=== PATIENT | female | born 1955 | race Caucasian/White ===

== ENCOUNTER 2016-11-27 08:34 | Inpatient (IN) | payer OTHER ==
[2016-11-27] MEDS ORDERED: METHYLPREDNISOLONE INJ 125 MG/2 ML SDV IV ONE (09:04)
[2016-11-27] MEDS ORDERED: IPRATROPIUM/ALBUTEROL 0.5-2.5 MG/3 ML AMPUL NEB ONE ×3 (09:04→09:05)
--- NOTE | 2016-11-27 09:07 | ER Document Report ---
ED General - General Chief Complaint: Breathing Difficulty Stated Complaint: DIFFICULTY BREATHING Time Seen by Provider: 11/27/16 08:54 Mode of Arrival: Ambulatory Information source: Patient Notes: 61-year-old female history of COPD on 3 L nasal cannula at baseline presents with complaints of shortness of breath intermittent productive cough. Patient denies any fevers or chills no symptoms have been ongoing for approximately 1 week. Patient admits to frontal sinus pressure and headache TRAVEL OUTSIDE OF THE [place] IN LAST 30 DAYS: No - HPI Onset: Last week Onset/Duration: Persistent, Worse Quality of pain: Achy Severity: Mild Pain Level: 1 Associated symptoms: Nonproductive cough, Productive cough, Headache, Shortness of breath Exacerbated by: Movement Relieved by: Denies Similar symptoms previously: Yes Recently seen / treated by doctor: Yes - Related Data Allergies/Adverse Reactions: No Known Allergies Allergy (Verified 11/27/16 08:41) Past Medical History - Social History Smoking Status: Current Every Day Smoker Cigarette use (# per day): Yes Chew tobacco use (# tins/day): No Smoking Education Provided: No Family History: Reviewed & Not Pertinent Patient has suicidal ideation: No Patient has homicidal ideation: No - Past Medical History Cardiac Medical History: Reports: Hx Congestive Heart Failure, Hx Hypertension Denies: Hx Coronary Artery Disease, Hx Heart Attack Pulmonary Medical History: Reports: Hx Asthma, Hx Bronchitis, Hx COPD, Hx Sleep Apnea Denies: Hx Pneumonia Neurological Medical History: Denies: Hx Cerebrovascular Accident, Hx Seizures Endocrine Medical History: Reports: Hx Diabetes Mellitus Type 2 Renal/ Medical History: Denies: Hx Peritoneal Dialysis GI Medical History: Denies: Hx Hepatitis, Hx Hiatal Hernia, Hx Ulcer Musculoskeltal Medical History: Reports Hx Arthritis - Osteoporosis Psychiatric Medical History: Denies: Hx Depression Infectious Medical History: Denies: Hx Hepatitis Past Surgical History: Reports: Hx Hysterectomy. Denies: Hx Mastectomy, Hx Open Heart Surgery, Hx Pacemaker - Immunizations Hx Diphtheria, Pertussis, Tetanus Vaccination: No Hx Pneumococcal Vaccination: 02/04/11 Review of Systems - Review of Systems Notes: REVIEW OF SYSTEMS: CONSTITUTIONAL : Denies fever, chills, or sweats. Denies recent illness. EENT: Denies eye, ear, throat, or mouth pain or symptoms. Denies nasal or sinus congestion or discharge. Denies throat, tongue, or mouth swelling or difficulty swallowing. CARDIOVASCULAR: Denies chest pain. Denies palpitations or racing or irregular heart beat. Denies ankle edema. RESPIRATORY: Admits to cough shortness of breath GASTROINTESTINAL: Denies abdominal pain or distention. Denies nausea, vomiting , or diarrhea. Denies blood in vomitus, stools, or per rectum. Denies black, tarry stools. Denies constipation. GENITOURINARY: Denies difficulty urinating, painful urination, burning, frequency, blood in urine, or discharge. FEMALE GENITOURINARY: Denies vaginal bleeding, heavy or abnormal periods, irregular periods. Denies vaginal discharge or odor. MUSCULOSKELETAL: Denies back or neck pain or stiffness. Denies joint pain or swelling. SKIN: Denies rash, lesions or sores. HEMATOLOGIC : Denies easy bruising or bleeding. LYMPHATIC: Denies swollen, enlarged glands. NEUROLOGICAL: Admits to headache PSYCHIATRIC: Denies anxiety or stress. Denies depression, suicidal ideation, or homicidal ideation. ALL OTHER SYSTEMS REVIEWED AND NEGATIVE. PHYSICAL EXAMINATION: GENERAL: Well-appearing, well-nourished and in moderate respiratory distress HEAD: Atraumatic, normocephalic. EYES: Pupils equal round and reactive to light, extraocular movements intact, conjunctiva are normal. ENT: Nares patent, oropharynx clear without exudates. Moist mucous membranes. NECK: Normal range of motion, supple without lymphadenopathy LUNGS: Coarse rhonchi on inspiration with faint expiratory wheezing all throughout HEART: Tachycardic ABDOMEN: Soft, nontender, nondistended abdomen. No guarding, no rebound. No masses appreciated. Female : deferred Musculoskeletal: Normal range of motion, no pitting or edema. No cyanosis. NEUROLOGICAL: Cranial nerves grossly intact. Normal speech, normal gait. Normal sensory, motor exams PSYCH: Normal mood, normal affect. SKIN: Warm, Dry, normal turgor, no rashes or lesions noted. Dictation was performed using [employer] voice recognition software Physical Exam - Vital signs Vitals: Temp Pulse Resp BP 98.0 F 88 24 H 136/83 H 11/27/16 08:44 11/27/16 08:44 11/27/16 08:44 11/27/16 08:44 Course - Re-evaluation Re-evalutation: 11/27/16 09:07 Patient was ordered 3 duo nebs Solu-Medrol x-ray lab work pending 11/27/16 11:01 Patient's wheezing has improved significantly, she will be taken off BiPAP and evaluated 11/27/16 11:45 pt ambulated sating 59% on 4 L , pt immediately brought back ot the room - Vital Signs Vital signs: Temp Pulse Resp BP Pulse Ox 98.0 F 88 20 136/83 H 11/27/16 08:44 11/27/16 08:44 11/27/16 10:10 11/27/16 08:44 - Laboratory Result Diagrams: 11/27/16 09:00 11/27/16 09:00 Laboratory results interpreted by me: 11/27/16 11/27/16 11/27/16 09:00 09:00 10:40 MCHC 31.5 L RDW 16.8 H Seg Neutrophils % 82.6 H Lymphocytes % 10.7 L Absolute Neutrophils 8.4 H Carbon Dioxide 34 H Ur Leukocyte Esterase MODERATE H Critical Care Note - Critical Care Note Total time excluding time spent on procedures (mins): 34 Comments: minutes of critical care time spent in direct contact evaluating and reevaluating the patient, treating symptoms, reviewing labs and studies and speaking with family and consultants excluding any procedures Discharge - Discharge Clinical Impression: Hypoxemia, Morbid obesity with BMI of 40.0-44.9, adult, COPD exacerbation, Acute on chronic diastolic heart failure Respiratory failure with hypoxia Qualifiers: Chronicity: acute Qualified Code(s): J96.01 - Acute respiratory failure with hypoxia Condition: Fair Disposition: ADMITTED INPATIENT Admitting Provider: Hospitalist Unit Admitted: [facility]
[2016-11-27 09:17] LABS: ABSOLUTE BASOPHILS # (AUTO) 0.1 10^3/uL (0.0-0.2); ABSOLUTE EOSINOPHILS # (AUTO) 0.1 10^3/uL (0.0-0.6); ABSOLUTE LYMPHOCYTES (AUTO) 1.1 10^3/uL (0.5-4.7); ABSOLUTE MONOCYTES (AUTO) 0.5 10^3/uL (0.1-1.4); ABSOLUTE NEUT (AUTO) 8.4 10^3/uL (1.7-8.2); BASOPHILS % (AUTO) 0.9 % (0-2); EOSINOPHILS % (AUTO) 1.2 % (0-6); HEMATOCRIT 39.5 % (36.0-47.0); HEMOGLOBIN 12.5 g/dL (12.0-15.5); LYMPHOCYTES % (AUTO) 10.7 % (13-45); MEAN CORPUSCULAR HEMOGLOBIN 28.2 pg (27.0-33.4); MEAN CORPUSCULAR HGB CONC 31.5 g/dL (32.0-36.0); MEAN CORPUSCULAR VOLUME 90 fl (80-97); MONOCYTES % (AUTO) 4.6 % (3-13); RED BLOOD COUNT 4.42 10^6/uL (3.72-5.28); RED CELL DISTRIBUTION WIDTH 16.8 % (11.5-14.0); SEGMENTED NEUTROPHILS % (AUTO) 82.6 % (42-78); WHITE BLOOD COUNT 10.1 10^3/uL (4.0-10.5)
[2016-11-27 09:33] LABS: ALANINE AMINOTRANSFERASE 34 U/L (9-52); ALBUMIN 4.5 g/dL (3.5-5.0); ALKALINE PHOSPHATASE 97 U/L (38-126); ANION GAP 11 (5-19); ASPARTATE AMINO TRANSFERASE 34 U/L (14-36); BILIRUBIN,DIRECT 0.3 mg/dL (0.0-0.4); BILIRUBIN,TOTAL 1.1 mg/dL (0.2-1.3); BLOOD UREA NITROGEN 20 mg/dL (7-20); CALCIUM 9.5 mg/dL (8.4-10.2); CARBON DIOXIDE 34 mmol/L (22-30); CHLORIDE 98 mmol/L (98-107); CREATINE KINASE 40 U/L (30-135); CREATININE RESULT 0.93 mg/dL (0.52-1.25); GLUCOSE 103 mg/dL (75-110); SODIUM 143.1 mmol/L (137-145); TOTAL PROTEIN 8.2 g/dL (6.3-8.2)
[2016-11-27 09:45] LABS: CREATINE KINASE MB 0.46 ng/mL (<4.55)
[2016-11-27 09:48] LABS: TROPONIN I < 0.012 ng/mL
--- NOTE | 2016-11-27 09:59 | RADIOLOGY REPORT (SQ) ---
EXAM DESCRIPTION: CHEST SINGLE VIEW COMPLETED DATE/TIME: 11/27/2016 9:34 am REASON FOR STUDY: sob COMPARISON: None. EXAM PARAMETERS: NUMBER OF VIEWS: One view. TECHNIQUE: Single frontal radiographic view of the chest acquired. RADIATION DOSE: NA LIMITATIONS: None. FINDINGS: LUNGS AND PLEURA: No opacities, masses or pneumothorax. No pleural effusion. MEDIASTINUM AND HILAR STRUCTURES: No masses. Contour normal. HEART AND VASCULAR STRUCTURES: Borderline cardiomegaly. No pulmonary vascular distention. BONES: No acute findings. HARDWARE: EKG leads overlie the chest. OTHER: No other significant finding. IMPRESSION: No acute cardiopulmonary disease. Borderline cardiomegaly. TECHNICAL DOCUMENTATION: JOB ID: [id number]
[2016-11-27 10:59] LABS: APPEARANCE,URINE SLIGHTLY-CLOUDY; BILIRUBIN,URINE NEGATIVE (NEGATIVE); GLUCOSE, URINE NEGATIVE (NEGATIVE); KETONES,URINE NEGATIVE (NEGATIVE); LEUKOCYTE ESTERASE,URINE MODERATE (NEGATIVE); NITRITE,URINE NEGATIVE (NEGATIVE); PROTEIN,URINE NEGATIVE (NEGATIVE); URINE SPECIFIC GRAVITY 1.004; UROBILINOGEN,URINE NEGATIVE mg/dL (<2.0)
[2016-11-27] MEDS ORDERED: ACETAMINOPHEN 325 MG TABLET PO ONE (11:00)
[2016-11-27] MEDS ORDERED: IPRATROPIUM/ALBUTEROL 0.5-2.5 MG/3 ML AMPUL NEB PRN (11:52)
[2016-11-27] MEDS ORDERED: ACETAMINOPHEN 325 MG TABLET PO PRN (11:52)
[2016-11-27] MEDS ORDERED: ONDANSETRON HCL INJ/PF 4 MG/2 ML SDV IV PRN (11:52)
[2016-11-27 12:09] LABS: VENOUS BLOOD BASE EXCESS 6.2 mmol/L; VENOUS BLOOD HCO3 34.9 mmol/L (20-32); VENOUS BLOOD PH 7.31 (7.30-7.42)
[2016-11-27 12:13] LABS: VENOUS BLOOD PCO2 70.8 mmHg (35-63)
--- NOTE | 2016-11-27 13:04 | PDOC H&P ---
History of Present Illness Admission Date/PCP: 11/27/16 12:08 Patient complains of: Increasing shortness of breath and dyspnea over the last one week History of Present Illness: 61-year-old female history of COPD on 3 L nasal cannula at baseline, diabetes mellitus type II, morbid obesity, essential hypertension and GERD; who presents with complaints of shortness of breath intermittent productive cough. Patient denies any fevers or chills no symptoms have been ongoing for approximately 1 week. Patient admits to frontal sinus pressure and headache. She states her shortness of breath has worsened over the last 3 days. She has a cough, mostly nonproductive in nature and sinus congestion. She denies any fevers or chills. Past Medical History Cardiac Medical History: Reports: Congestive Heart Failure, Hypertension Denies: Coronary Artery Disease, Myocardial Infarction Pulmonary Medical History: Reports: Asthma, Bronchitis, Chronic Obstructive Pulmonary Disease (COPD), Sleep Apnea Denies: Pneumonia EENT Medical History: Reports: Nose Neurological Medical History: Reports: None Denies: Seizures Endocrine Medical History: Reports: Diabetes Mellitus Type 2 Renal/ Medical History: Reports: None GI Medical History: Reports: Gastroesophageal Reflux Disease Denies: Hepatitis, Hiatal Hernia Musculoskeltal Medical History: Reports: Arthritis - Osteoporosis Skin Medical History: Reports: None Psychiatric Medical History: Reports: None Denies: Depression Traumatic Medical History: Reports: None Hematology: Denies: Anemia, Sickle Cell Disease Infectious Medical History: Reports: None Past Surgical History Past Surgical History: Reports: Hysterectomy Denies: Amputation, Mastectomy, Pacemaker Social History Information Source: Patient Lives with: Family Smoking Status: Former Smoker Pipes Per Day: 12 Number of Years Smokin Frequency of Alcohol Use: None Hx Recreational Drug Use: No Drugs: None Hx Prescription Drug Abuse: No - Advance Directive Resuscitation Status: Full Code Surrogate healthcare decision maker:: , Amilcar Duggan Family History Family History: COPD, DM, Hypertension Parental Family History Reviewed: Yes Children Family History Reviewed: Yes Sibling(s) Family History Reviewed.: Yes Medication/Allergy Home Medications: Aspirin [Aspirin 81 mg Chewable Tablet] 81 mg PO DAILY 04/17/11 Diltiazem HCl [Cardizem Cd 120 mg Capsule] 120 mg PO DAILY 04/17/11 Esomeprazole Mag Trihydrate [Nexium] 40 mg PO DAILY 04/17/11 Ibandronate Sodium [Boniva] 150 mg PO [id number] 04/17/11 Ramipril [Altace] 10 mg PO DAILY 04/17/11 Cetirizine HCl [Zyrtec 5 mg Tablet] 10 mg PO DAILY 07/05/14 Magnesium Oxide 400 mg PO BID 07/05/14 Metformin HCl [Glucophage] 500 mg PO BID 07/05/14 Montelukast Sodium 10 mg PO QHS 07/05/14 Carvedilol [Coreg 3.125 mg Tablet] 3.125 mg PO Q12 #60 tablet 07/15/14 Fluticasone/Salmeterol [Advair 500-50 Diskus 14 Dose/Diskus] 1 inh IH Q12 30 Days 07/15/14 Albuterol Sulfate [Proair HFA] 2 puff IH QID 09/01/15 Atorvastatin Calcium 10 mg PO QHS 09/01/15 Fluticasone Propionate [Flonase Allergy Relief] 1 spray NASL BID 09/01/15 Pramipexole Di-HCl [Mirapex 0.25 mg Tablet] 0.25 mg PO QHS 09/01/15 Tiotropium [place] [Spiriva Respimat] 2 puff IH QAM 09/01/15 Albuterol Sulfate [Ventolin 0.083% Neb 2.5 mg/3 mL Ampul] 2.5 mg NEB [id number] PRN #60 vial.neb 09/03/15 Furosemide [Lasix 20 mg Tablet] 20 mg PO DAILY tablet 09/03/15 Ipratropium [place] [Atrovent 0.02% Neb 0.5 mg/2.5 ml Ampul] 1 dose NEB Q6HP PRN #60 09/03/15 Calcium Carbonate/Vitamin D3 [Calcium 600-Vit D3 200 Tablet] 1 each PO BID 10/31 Levofloxacin [Levaquin 750 mg Tablet] 750 mg PO DAILY #5 tablet 11/06/15 Prednisone [Deltasone 20 mg Tablet] 60 mg PO BID #93 tablet 11/06/15 Allergies/Adverse Reactions: No Known Allergies Allergy (Verified 11/27/16 08:41) Review of Systems Constitutional: ABSENT: chills, fever(s), headache(s), weight gain, weight loss Eyes: ABSENT: visual disturbances Ears: ABSENT: hearing changes Nose, Mouth, and Throat: PRESENT: headache(s), sore throat Cardiovascular: ABSENT: chest pain, dyspnea on exertion, edema, orthropnea, palpitations Gastrointestinal: ABSENT: abdominal pain, constipation, diarrhea, hematemesis, hematochezia, nausea, vomiting Genitourinary: ABSENT: dysuria, hematuria Musculoskeletal: ABSENT: joint swelling Integumentary: ABSENT: rash, wounds Neurological: ABSENT: abnormal gait, abnormal speech, confusion, dizziness, focal weakness, syncope Psychiatric: PRESENT: as per HPI Endocrine: ABSENT: cold intolerance, heat intolerance, polydipsia, polyuria Hematologic/Lymphatic: PRESENT: as per HPI Physical Exam Vital Signs: Temp Pulse Resp BP Pulse Ox 98.0 F 88 20 136/83 H 11/27/16 08:44 11/27/16 08:44 11/27/16 10:10 11/27/16 08:44 General appearance: PRESENT: no acute distress, morbidly obese, well-developed, well-nourished Head exam: PRESENT: atraumatic, normocephalic Eye exam: PRESENT: conjunctiva pink, EOMI, PERRLA. ABSENT: scleral icterus Ear exam: PRESENT: normal external ear exam Mouth exam: PRESENT: moist, tongue midline Throat exam: PRESENT: post pharyngeal erythema Neck exam: ABSENT: carotid bruit, JVD, lymphadenopathy, thyromegaly Respiratory exam: PRESENT: decreased breath sounds - bilateral expiratory, symmetrical, unlabored, wheezes Cardiovascular exam: PRESENT: RRR. ABSENT: diastolic murmur, rubs, systolic murmur Pulses: PRESENT: normal dorsalis pedis pul Vascular exam: PRESENT: normal capillary refill GI/Abdominal exam: PRESENT: normal bowel sounds, soft. ABSENT: distended, guarding, mass, organolmegaly, rebound, tenderness Rectal exam: PRESENT: deferred Extremities exam: PRESENT: full ROM. ABSENT: calf tenderness, clubbing, pedal edema Neurological exam: PRESENT: alert, awake, oriented to person, oriented to place , oriented to time, oriented to situation, CN II-XII grossly intact. ABSENT: motor sensory deficit Psychiatric exam: PRESENT: appropriate affect, normal mood. ABSENT: homicidal ideation, suicidal ideation Skin exam: PRESENT: dry, intact, warm. ABSENT: cyanosis, rash Results Impressions: Chest X-Ray 11/27/16 08:54 IMPRESSION: No acute cardiopulmonary disease. Borderline cardiomegaly. Assessment & Plan - Diagnosis (1) Acute and chronic respiratory failure with hypoxia Is this a current diagnosis for this admission?: YesPlan: Patient given 3 nebulizer treatments, IV solumedrol and placed on BIPAP. Chest xray shows no pneumonia. She does have sinusitis with post nasal drainage causing acute bronchitis (2) COPD exacerbation Is this a current diagnosis for this admission?: Yes (3) Acute on chronic diastolic heart failure Is this a current diagnosis for this admission?: YesPlan: Continue home medications (4) Acute sinusitis Qualifiers: Sinusitis location: maxillary Recurrence: recurrent Qualified Code(s): J01.01 - Acute recurrent maxillary sinusitis Is this a current diagnosis for this admission?: YesPlan: Flonase, Claritin, levaquin empirically (5) Morbid obesity with BMI of 40.0-44.9, adult Is this a current diagnosis for this admission?: Yes - Time Time Spent: 50 to 70 Minutes Critical Time spent with patient: 25-34 minutes Medications reviewed and adjusted accordingly: Yes Anticipated discharge: Home with Homehealth
--- NOTE | 2016-11-27 13:32 | EKG REPORT ---
SEVERITY:- NORMAL ECG - SINUS RHYTHM : Confirmed by: Mello Herbert MD 27-Nov-2016 13:31:23
[2016-11-27] MEDS ORDERED: ENOXAPARIN SODIUM INJ 40 MG/0.4 ML DISP.SYRIN SUBCUT ONE (14:00)
[2016-11-27] MEDS: METHYLPREDNISOLONE INJ 125 MG/2 ML SDV IV SCH ×2 (14:41→21:57)
[2016-11-27] MEDS: LEVOFLOXACIN 750 MG/D5W RTU 750 MG/150 ML RTUPB IV SCH (14:41)
[2016-11-27] MEDS: IPRATROPIUM/ALBUTEROL 0.5-2.5 MG/3 ML AMPUL NEB SCH ×2 (14:42→19:47)
[2016-11-27 14:57] LABS: ARTERIAL BLOOD BASE EXCESS 2.3 mmol/L; ARTERIAL BLOOD O2 SATURATION 96.6 % (94-98)
[2016-11-27] MEDS: FLUTICASONE NASAL SPRAY 50 MCG/SPRY 120 SPRAY/16 GM NASL SCH (17:45)
[2016-11-27] MEDS: DOCUSATE SODIUM 100 MG CAPSULE PO SCH (17:45)
[2016-11-27] MEDS: MONTELUKAST SODIUM 10 MG TABLET PO SCH (21:59)
[2016-11-27] MEDS: FAMOTIDINE 20 MG TABLET PO SCH (22:00)
[2016-11-27] MEDS: FLUTICASONE/SALMETEROL DISKUS 500-50 MCG/DOSE IH SCH (22:00)
[2016-11-27 22:48] LABS: ARTERIAL BLOOD BASE EXCESS 3.4 mmol/L; ARTERIAL BLOOD O2 SATURATION 91.8 % (94-98)
[2016-11-28] MEDS: METHYLPREDNISOLONE INJ 125 MG/2 ML SDV IV SCH ×3 (05:19→23:16)
[2016-11-28 05:28] LABS: ABSOLUTE LYMPHOCYTES (AUTO) 0.5 10^3/uL (0.5-4.7); ABSOLUTE MONOCYTES (AUTO) 0.1 10^3/uL (0.1-1.4); ABSOLUTE NEUT (AUTO) 6.3 10^3/uL (1.7-8.2); HEMATOCRIT 34.4 % (36.0-47.0); HEMOGLOBIN 11.1 g/dL (12.0-15.5); HGB HCT DIFFERENCE -1.1; MEAN CORPUSCULAR HGB CONC 32.1 g/dL (32.0-36.0); MEAN CORPUSCULAR VOLUME 87 fl (80-97); RED BLOOD COUNT 3.95 10^6/uL (3.72-5.28); RED CELL DISTRIBUTION WIDTH 16.4 % (11.5-14.0); WHITE BLOOD COUNT 6.9 10^3/uL (4.0-10.5)
[2016-11-28 05:43] LABS: ANION GAP 9 (5-19); BLOOD UREA NITROGEN 20 mg/dL (7-20); CARBON DIOXIDE 30 mmol/L (22-30); CHLORIDE 102 mmol/L (98-107); CHOLESTEROL 137.29 mg/dL (0-200); CREATININE RESULT 0.89 mg/dL (0.52-1.25); Direct HDL 50 mg/dL (>40); GLUCOSE 184 mg/dL (75-110); MAGNESIUM 2.3 mg/dL (1.6-2.3); SODIUM 141.3 mmol/L (137-145); TRIGLYCERIDES 80 mg/dL (<150)
[2016-11-28 05:53] LABS: DIRECT LDL 69 mg/dL (<100)
[2016-11-28] MEDS ORDERED: ACETAMINOPHEN 325 MG TABLET PO PRN (07:58)
[2016-11-28] MEDS ORDERED: (PENDING PHARMACY ID) (Tiotropium Bromide [Spiriva Respimat] 2 PUFF) IH SCH (08:00)
[2016-11-28] MEDS ORDERED: ONDANSETRON HCL INJ/PF 4 MG/2 ML SDV IV PRN (08:01)
[2016-11-28] MEDS: IPRATROPIUM/ALBUTEROL 0.5-2.5 MG/3 ML AMPUL NEB SCH ×3 (08:32→20:13)
[2016-11-28] MEDS ORDERED: DEXTROSE 50%-WATER 25 GM/50 ML DISP.SYRIN IV PRN ×2 (08:44)
[2016-11-28] MEDS ORDERED: DEXTROSE 40% GEL 15 GM TUBE PO PRN ×2 (08:44)
[2016-11-28] MEDS ORDERED: GLUCAGON,HUMAN RECOMB 1 MG INJ IM PRN (08:44)
[2016-11-28] MEDS: ENOXAPARIN SODIUM INJ 40 MG/0.4 ML DISP.SYRIN SUBCUT SCH (09:13)
[2016-11-28] MEDS: ASPIRIN 81 MG TABLET, ENT COATED PO SCH (09:15)
[2016-11-28] MEDS: FAMOTIDINE 20 MG TABLET PO SCH ×2 (09:15→23:16)
[2016-11-28] MEDS: DOCUSATE SODIUM 100 MG CAPSULE PO SCH ×2 (09:15→17:08)
[2016-11-28] MEDS: METFORMIN HCL 500 MG TABLET PO SCH ×2 (09:15→23:39)
[2016-11-28] MEDS: MAGNESIUM OXIDE 400 MG TABLET PO SCH ×2 (09:16→23:35)
[2016-11-28] MEDS: FUROSEMIDE 20 MG TABLET PO SCH (09:16)
[2016-11-28] MEDS: DILTIAZEM HCL 120 MG CAP.SR.24H PO SCH (09:17)
[2016-11-28] MEDS: CARVEDILOL 3.125 MG TABLET PO SCH ×2 (09:17→23:29)
[2016-11-28] MEDS: FLUTICASONE NASAL SPRAY 50 MCG/SPRY 120 SPRAY/16 GM NASL SCH ×2 (09:18→17:09)
[2016-11-28] MEDS: FLUTICASONE/SALMETEROL DISKUS 500-50 MCG/DOSE IH SCH ×2 (09:18→23:29)
[2016-11-28] MEDS ORDERED: (PENDING PHARMACY ID) (Pantoprazole Sodium [Protonix] 20 MG) PO SCH (10:00)
[2016-11-28] MEDS ORDERED: CETIRIZINE 5 MG TABLET PO SCH (10:00)
[2016-11-28] MEDS ORDERED: RAMIPRIL 10 MG PO SCH (10:00)
[2016-11-28] MEDS: RAMIPRIL 10 MG CAPSULE PO SCH (11:01)
[2016-11-28] MEDS: TIOTROPIUM BROMIDE DPI 5 CAP/KIT (18 MCG/CAP) IH SCH (11:02)
[2016-11-28] MEDS: INSULIN LISPRO 100 UNIT/ML 3 ML VIAL SUBCUT PRN ×3 (12:15→23:16)
--- NOTE | 2016-11-28 12:26 | PDOC PROGRESS REPORT ---
Subjective Progress Note for:: 11/28/16 Subjective:: Patient is seen on morning rounds. She is resting comfortably in bed. She denies any chest pain or palpitations. She continues to be short of breath with exertion, but is no longer short of breath at rest. She has a nonproductive cough but denies dyspnea. She denies any nausea, vomiting or abdominal pain. She denies any athralgias or myalgias. Remaining review of systems are negative Physical Exam Vital Signs: Temp Pulse Resp BP Pulse Ox 97.7 F 90 20 120/82 94 11/28/16 08:10 11/28/16 08:32 11/28/16 08:32 11/28/16 08:10 11/28/16 08:32 Intake & Output 11/27/16 11/28/16 11/29/16 06:59 06:59 06:59 Intake Total 1067 Output Total 1200 Balance -133 Weight 113.2 kg 113.2 kg General appearance: PRESENT: no acute distress, well-developed, well-nourished Head exam: PRESENT: atraumatic, normocephalic Eye exam: PRESENT: conjunctiva pink, EOMI, PERRLA. ABSENT: scleral icterus Ear exam: PRESENT: normal external ear exam Mouth exam: PRESENT: dry mucosa Neck exam: ABSENT: carotid bruit, JVD, lymphadenopathy, thyromegaly Respiratory exam: PRESENT: clear to auscultation alysia. ABSENT: rales, rhonchi, wheezes Cardiovascular exam: PRESENT: RRR. ABSENT: diastolic murmur, rubs, systolic murmur Pulses: PRESENT: normal dorsalis pedis pul Vascular exam: PRESENT: normal capillary refill GI/Abdominal exam: PRESENT: normal bowel sounds, soft. ABSENT: distended, guarding, mass, organolmegaly, rebound, tenderness Rectal exam: PRESENT: deferred Extremities exam: PRESENT: full ROM. ABSENT: calf tenderness, clubbing, pedal edema Neurological exam: PRESENT: alert, awake, oriented to person, oriented to place , oriented to time, oriented to situation, CN II-XII grossly intact. ABSENT: motor sensory deficit Psychiatric exam: PRESENT: appropriate affect, normal mood. ABSENT: homicidal ideation, suicidal ideation Skin exam: PRESENT: dry, intact, warm. ABSENT: cyanosis, rash Results Laboratory Results: 11/28/16 04:36 11/28/16 04:36 11/27/16 11/27/16 11/28/16 14:30 22:35 04:36 WBC 6.9 RBC 3.95 Hgb 11.1 L Hct 34.4 L MCV 87 MCH 28.0 MCHC 32.1 RDW 16.4 H Plt Count 230 Seg Neutrophils % 92.0 H Lymphocytes % 7.0 L Monocytes % 1.0 L Eosinophils % 0.0 Basophils % 0.0 Absolute Neutrophils 6.3 Absolute Lymphocytes 0.5 Absolute Monocytes 0.1 Absolute Eosinophils 0.0 Absolute Basophils 0.0 Carbonic Acid 1.97 H 1.68 H HCO3/H2CO3 Ratio 15:1 17:1 ABG pH 7.29 L 7.35 ABG pCO2 65.5 H 55.7 H ABG pO2 99.7 66.0 L ABG HCO3 30.5 H 30.2 H ABG O2 Saturation 96.6 91.8 L ABG Base Excess 2.3 3.4 FiO2 50% 6L Sodium Potassium Chloride Carbon Dioxide Anion Gap BUN Creatinine Est GFR ( Amer) Est GFR (Non-Af Amer) Glucose Calcium Magnesium Triglycerides Cholesterol LDL Cholesterol Direct VLDL Cholesterol HDL Cholesterol 11/28/16 04:36 WBC RBC Hgb Hct MCV MCH MCHC RDW Plt Count Seg Neutrophils % Lymphocytes % Monocytes % Eosinophils % Basophils % Absolute Neutrophils Absolute Lymphocytes Absolute Monocytes Absolute Eosinophils Absolute Basophils Carbonic Acid HCO3/H2CO3 Ratio ABG pH ABG pCO2 ABG pO2 ABG HCO3 ABG O2 Saturation ABG Base Excess FiO2 Sodium 141.3 Potassium 5.0 Chloride 102 Carbon Dioxide 30 Anion Gap 9 BUN 20 Creatinine 0.89 Est GFR ( Amer) > 60 Est GFR (Non-Af Amer) > 60 Glucose 184 H Calcium 9.0 Magnesium 2.3 Triglycerides 80 Cholesterol 137.29 LDL Cholesterol Direct 69 VLDL Cholesterol 16.0 HDL Cholesterol 50 Impressions: Chest X-Ray 11/27/16 08:54 IMPRESSION: No acute cardiopulmonary disease. Borderline cardiomegaly. Assessment & Plan - Diagnosis (1) Acute and chronic respiratory failure with hypoxia Is this a current diagnosis for this admission?: YesPlan: Patient given 3 nebulizer treatments, IV solumedrol and placed on BIPAP. Chest xray shows no pneumonia. She does have sinusitis with post nasal drainage causing acute bronchitis (2) COPD exacerbation Is this a current diagnosis for this admission?: YesPlan: Continue steroids, antibiotics, and nebulizer treatments (3) Acute on chronic diastolic heart failure Is this a current diagnosis for this admission?: YesPlan: Continue home medications (4) Acute sinusitis Qualifiers: Sinusitis location: maxillary Recurrence: recurrent Qualified Code(s): J01.01 - Acute recurrent maxillary sinusitis Is this a current diagnosis for this admission?: YesPlan: Flonase, Claritin, levaquin empirically (5) Morbid obesity with BMI of 40.0-44.9, adult Is this a current diagnosis for this admission?: YesPlan: Counseled - Time Time Spent with patient: 25-34 minutes Critical Time spent with patient: 15-24 minutes Smoking Cessation Education: 3 to 10 minutes Medications reviewed and adjusted accordingly: Yes
[2016-11-28] MEDS: LEVOFLOXACIN 750 MG/D5W RTU 750 MG/150 ML RTUPB IV SCH (13:44)
[2016-11-28] MEDS: MONTELUKAST SODIUM 10 MG TABLET PO SCH ×2 (23:15→23:35)
[2016-11-28] MEDS: ATORVASTATIN CALCIUM 10 MG TABLET PO SCH (23:34)
[2016-11-28] MEDS: PRAMIPEXOLE DI-HCL 0.25 MG TABLET PO SCH (23:41)
[2016-11-29] MEDS: METHYLPREDNISOLONE INJ 125 MG/2 ML SDV IV SCH ×3 (05:21→21:01)
[2016-11-29] MEDS: LANSOPRAZOLE 15 MG TAB.RAP.DR PO SCH (05:21)
[2016-11-29] MEDS: IPRATROPIUM/ALBUTEROL 0.5-2.5 MG/3 ML AMPUL NEB SCH ×3 (08:39→20:28)
[2016-11-29] MEDS: FLUTICASONE NASAL SPRAY 50 MCG/SPRY 120 SPRAY/16 GM NASL SCH ×2 (08:50→17:23)
[2016-11-29] MEDS: TIOTROPIUM BROMIDE DPI 5 CAP/KIT (18 MCG/CAP) IH SCH (08:50)
[2016-11-29] MEDS: RAMIPRIL 10 MG CAPSULE PO SCH (08:51)
[2016-11-29] MEDS: DILTIAZEM HCL 120 MG CAP.SR.24H PO SCH (08:52)
[2016-11-29] MEDS: FLUTICASONE/SALMETEROL DISKUS 500-50 MCG/DOSE IH SCH ×2 (08:52→21:02)
[2016-11-29] MEDS: ASPIRIN 81 MG TABLET, ENT COATED PO SCH (08:53)
[2016-11-29] MEDS: METFORMIN HCL 500 MG TABLET PO SCH ×2 (08:53→21:01)
[2016-11-29] MEDS: FAMOTIDINE 20 MG TABLET PO SCH ×2 (08:53→21:01)
[2016-11-29] MEDS: FUROSEMIDE 20 MG TABLET PO SCH (08:53)
[2016-11-29] MEDS: DOCUSATE SODIUM 100 MG CAPSULE PO SCH ×2 (08:54→17:23)
[2016-11-29] MEDS: CETIRIZINE 10 MG TABLET PO SCH (08:54)
[2016-11-29] MEDS: CARVEDILOL 3.125 MG TABLET PO SCH ×2 (08:54→21:01)
[2016-11-29] MEDS: ENOXAPARIN SODIUM INJ 40 MG/0.4 ML DISP.SYRIN SUBCUT SCH (08:55)
[2016-11-29] MEDS: MAGNESIUM OXIDE 400 MG TABLET PO SCH ×2 (08:55→21:01)
[2016-11-29] MEDS: INSULIN LISPRO 100 UNIT/ML 3 ML VIAL SUBCUT PRN ×4 (08:56→22:06)
[2016-11-29] MEDS: LEVOFLOXACIN 750 MG/D5W RTU 750 MG/150 ML RTUPB IV SCH (12:51)
[2016-11-29] MEDS: PRAMIPEXOLE DI-HCL 0.25 MG TABLET PO SCH (21:01)
[2016-11-29] MEDS: ATORVASTATIN CALCIUM 10 MG TABLET PO SCH (21:02)
[2016-11-29] MEDS: MONTELUKAST SODIUM 10 MG TABLET PO SCH (21:02)
[2016-11-30 05:09] LABS: ANION GAP 8 (5-19); BLOOD UREA NITROGEN 35 mg/dL (7-20); CALCIUM 8.7 mg/dL (8.4-10.2); CARBON DIOXIDE 32 mmol/L (22-30); CHLORIDE 101 mmol/L (98-107); CREATININE RESULT 0.97 mg/dL (0.52-1.25); GLUCOSE 177 mg/dL (75-110); POTASSIUM 4.7 mmol/L (3.6-5.0); SODIUM 141.1 mmol/L (137-145)
[2016-11-30] MEDS: LANSOPRAZOLE 15 MG TAB.RAP.DR PO SCH (05:09)
[2016-11-30 05:36] LABS: HEMATOCRIT 35.5 % (36.0-47.0); HGB HCT DIFFERENCE -2.5; MEAN CORPUSCULAR HEMOGLOBIN 27.5 pg (27.0-33.4); MEAN CORPUSCULAR HGB CONC 30.9 g/dL (32.0-36.0); MEAN CORPUSCULAR VOLUME 89 fl (80-97); RED BLOOD COUNT 3.99 10^6/uL (3.72-5.28); RED CELL DISTRIBUTION WIDTH 16.9 % (11.5-14.0); WHITE BLOOD COUNT 9.8 10^3/uL (4.0-10.5)
[2016-11-30 05:51] LABS: BASOPHILS % (MANUAL) 0 % (0-2); EOSINOPHILS % (MANUAL) 0 % (0-6); LYMPHOCYTES % (MANUAL) 1 % (13-45); TOTAL CELLS COUNTED 100
[2016-11-30 05:53] LABS: ANISOCYTOSIS 1+; HYPOCHROMASIA SLIGHT; OVALOCYTES SLIGHT; POIKILOCYTOSIS SLIGHT; POLYCHROMASIA SLIGHT; SCHISTOCYTES SLIGHT; TOXIC GRANULATION SLIGHT
[2016-11-30] MEDS: IPRATROPIUM/ALBUTEROL 0.5-2.5 MG/3 ML AMPUL NEB SCH ×3 (08:29→19:35)
[2016-11-30] MEDS: INSULIN LISPRO 100 UNIT/ML 3 ML VIAL SUBCUT PRN ×4 (08:39→21:22)
[2016-11-30] MEDS: ENOXAPARIN SODIUM INJ 40 MG/0.4 ML DISP.SYRIN SUBCUT SCH (08:39)
[2016-11-30] MEDS: FLUTICASONE NASAL SPRAY 50 MCG/SPRY 120 SPRAY/16 GM NASL SCH ×2 (08:40→17:18)
[2016-11-30] MEDS: TIOTROPIUM BROMIDE DPI 5 CAP/KIT (18 MCG/CAP) IH SCH (08:40)
[2016-11-30] MEDS: FLUTICASONE/SALMETEROL DISKUS 500-50 MCG/DOSE IH SCH ×2 (08:43→21:23)
[2016-11-30] MEDS: METHYLPREDNISOLONE INJ 125 MG/2 ML SDV IV SCH (08:43)
[2016-11-30] MEDS: DOCUSATE SODIUM 100 MG CAPSULE PO SCH ×2 (08:44→17:18)
[2016-11-30] MEDS: METFORMIN HCL 500 MG TABLET PO SCH ×2 (08:44→21:12)
[2016-11-30] MEDS: MAGNESIUM OXIDE 400 MG TABLET PO SCH ×2 (08:44→21:12)
[2016-11-30] MEDS: CARVEDILOL 3.125 MG TABLET PO SCH ×2 (08:45→21:11)
[2016-11-30] MEDS: DILTIAZEM HCL 120 MG CAP.SR.24H PO SCH (08:45)
[2016-11-30] MEDS: ASPIRIN 81 MG TABLET, ENT COATED PO SCH (08:45)
[2016-11-30] MEDS: FAMOTIDINE 20 MG TABLET PO SCH ×2 (08:45→21:12)
[2016-11-30] MEDS: CETIRIZINE 10 MG TABLET PO SCH (08:45)
[2016-11-30] MEDS: RAMIPRIL 10 MG CAPSULE PO SCH (08:46)
[2016-11-30] MEDS: FUROSEMIDE 20 MG TABLET PO SCH (08:46)
[2016-11-30] MEDS: PREDNISONE 20 MG TABLET PO SCH (09:31)
--- NOTE | 2016-11-30 10:31 | PDOC PROGRESS REPORT ---
Subjective Progress Note for:: 11/29/16 Subjective:: Patient is seen on morning rounds. She is resting comfortably in bed. She denies any chest pain or palpitations. She continues to be short of breath with exertion, but is no longer short of breath at rest. She has a nonproductive cough but denies dyspnea. She denies any nausea, vomiting or abdominal pain. She denies any athralgias or myalgias. Remaining review of systems are negative Physical Exam Vital Signs: Temp Pulse Resp BP Pulse Ox 98.0 F 90 18 124/72 97 11/29/16 07:07 11/29/16 08:39 11/29/16 08:39 11/29/16 07:07 11/29/16 08:39 Intake & Output 11/28/16 11/29/16 11/30/16 06:59 06:59 06:59 Intake Total 1067 1443 Output Total 1200 1600 Balance -133 -157 Weight 113.2 kg 113.2 kg General appearance: PRESENT: no acute distress, morbidly obese, well-developed, well-nourished Head exam: PRESENT: atraumatic, normocephalic Eye exam: PRESENT: conjunctiva pink, EOMI, PERRLA. ABSENT: scleral icterus Ear exam: PRESENT: normal external ear exam Mouth exam: PRESENT: moist, tongue midline Throat exam: PRESENT: post pharyngeal erythema Neck exam: ABSENT: carotid bruit, JVD, lymphadenopathy, thyromegaly Respiratory exam: PRESENT: decreased breath sounds - bilaterally, rhonchi, symmetrical, unlabored Cardiovascular exam: PRESENT: RRR. ABSENT: diastolic murmur, rubs, systolic murmur Pulses: PRESENT: normal dorsalis pedis pul Vascular exam: PRESENT: normal capillary refill GI/Abdominal exam: PRESENT: normal bowel sounds, soft. ABSENT: distended, guarding, mass, organolmegaly, rebound, tenderness Rectal exam: PRESENT: deferred Extremities exam: PRESENT: full ROM. ABSENT: calf tenderness, clubbing, pedal edema Musculoskeletal exam: PRESENT: ambulatory Neurological exam: PRESENT: alert, awake, oriented to person, oriented to place , oriented to time, oriented to situation, CN II-XII grossly intact Psychiatric exam: PRESENT: appropriate affect, normal mood. ABSENT: homicidal ideation, suicidal ideation Skin exam: PRESENT: dry, intact, warm. ABSENT: cyanosis, rash Results Laboratory Results: 11/28/16 04:36 11/28/16 04:36 Impressions: Chest X-Ray 11/27/16 08:54 IMPRESSION: No acute cardiopulmonary disease. Borderline cardiomegaly. Assessment & Plan - Diagnosis (1) Acute and chronic respiratory failure with hypoxia Is this a current diagnosis for this admission?: YesPlan: Patient given 3 nebulizer treatments, IV solumedrol and placed on BIPAP. Chest xray shows no pneumonia. She does have sinusitis with post nasal drainage causing acute bronchitis (2) COPD exacerbation Is this a current diagnosis for this admission?: YesPlan: Continue steroids, antibiotics, and nebulizer treatments (3) Acute on chronic diastolic heart failure Is this a current diagnosis for this admission?: YesPlan: Continue home medications (4) Acute sinusitis Qualifiers: Sinusitis location: maxillary Recurrence: recurrent Qualified Code(s): J01.01 - Acute recurrent maxillary sinusitis Is this a current diagnosis for this admission?: YesPlan: Flonase, Claritin, levaquin empirically (5) Morbid obesity with BMI of 40.0-44.9, adult Is this a current diagnosis for this admission?: YesPlan: Counseled - Time Time Spent with patient: 25-34 minutes Critical Time spent with patient: 25-34 minutes Medications reviewed and adjusted accordingly: Yes Anticipated discharge: Home with Homehealth
[2016-11-30] MEDS ORDERED: LEVOFLOXACIN 750 MG TABLET PO SCH (14:00)
[2016-11-30] MEDS: ATORVASTATIN CALCIUM 10 MG TABLET PO SCH (21:11)
[2016-11-30] MEDS: MONTELUKAST SODIUM 10 MG TABLET PO SCH (21:12)
[2016-11-30] MEDS: PRAMIPEXOLE DI-HCL 0.25 MG TABLET PO SCH (21:21)
[2016-12-01] MEDS: LANSOPRAZOLE 15 MG TAB.RAP.DR PO SCH (06:33)
[2016-12-01] MEDS: IPRATROPIUM/ALBUTEROL 0.5-2.5 MG/3 ML AMPUL NEB SCH (08:10)
[2016-12-01] MEDS: FLUTICASONE NASAL SPRAY 50 MCG/SPRY 120 SPRAY/16 GM NASL SCH (08:54)
[2016-12-01] MEDS: FLUTICASONE/SALMETEROL DISKUS 500-50 MCG/DOSE IH SCH (08:54)
[2016-12-01] MEDS: TIOTROPIUM BROMIDE DPI 5 CAP/KIT (18 MCG/CAP) IH SCH (08:55)
[2016-12-01] MEDS: DOCUSATE SODIUM 100 MG CAPSULE PO SCH (08:56)
[2016-12-01] MEDS: RAMIPRIL 10 MG CAPSULE PO SCH (08:56)
[2016-12-01] MEDS: PREDNISONE 20 MG TABLET PO SCH (08:57)
[2016-12-01] MEDS: ASPIRIN 81 MG TABLET, ENT COATED PO SCH (08:57)
[2016-12-01] MEDS: METFORMIN HCL 500 MG TABLET PO SCH (08:58)
[2016-12-01] MEDS: FAMOTIDINE 20 MG TABLET PO SCH (08:58)
[2016-12-01] MEDS: CETIRIZINE 10 MG TABLET PO SCH (08:58)
[2016-12-01] MEDS: MAGNESIUM OXIDE 400 MG TABLET PO SCH (08:58)
[2016-12-01] MEDS: FUROSEMIDE 20 MG TABLET PO SCH (08:58)
[2016-12-01] MEDS: DILTIAZEM HCL 120 MG CAP.SR.24H PO SCH (08:59)
[2016-12-01] MEDS: CARVEDILOL 3.125 MG TABLET PO SCH (08:59)
[2016-12-01] MEDS: ENOXAPARIN SODIUM INJ 40 MG/0.4 ML DISP.SYRIN SUBCUT SCH (08:59)
[2016-12-01 09:20] VITALS: BP 119/68
--- NOTE | 2016-12-01 11:41 | PDOC DISCHARGE SUMMARY ---
General - Admit/Disc Date/PCP Admission Date/Primary Care Provider: 11/27/16 11:59 Discharge Date: 12/01/16 - Discharge Diagnosis (1) Acute and chronic respiratory failure with hypoxia Is this a current diagnosis for this admission?: YesSummary: She has improved to her baseline. She is on oxygen at 3l/min via n/c (2) COPD exacerbation Is this a current diagnosis for this admission?: Yes (3) Acute on chronic diastolic heart failure Is this a current diagnosis for this admission?: YesSummary: Resolved, continue current medications. Low sodium diet and weigh daily (4) Acute sinusitis Is this a current diagnosis for this admission?: YesSummary: Complete antibiotic therapy (5) Morbid obesity with BMI of 40.0-44.9, adult Is this a current diagnosis for this admission?: Yes (6) UTI (urinary tract infection) Is this a current diagnosis for this admission?: YesSummary: Complete course of antibiotic therapy - Additional Information Resuscitation Status: Full Code Discharge Diet: Cardiac, Diabetic Discharge Activity: Activity As Tolerated, Balance Activity w/Rest Home Medications: Diltiazem HCl [Cardizem Cd 120 mg Capsule] 120 mg PO DAILY 04/17/11 Ramipril [Altace] 10 mg PO DAILY 04/17/11 Cetirizine HCl [Zyrtec 5 mg Tablet] 5 mg PO Q12 07/05/14 Magnesium Oxide 400 mg PO Q12 07/05/14 Metformin HCl [Glucophage] 500 mg PO Q12 07/05/14 Montelukast Sodium 10 mg PO QHS 07/05/14 Carvedilol [Coreg 3.125 mg Tablet] 3.125 mg PO Q12 #60 tablet 07/15/14 Fluticasone/Salmeterol [Advair 500-50 Diskus 14 Dose/Diskus] 1 inh IH Q12 30 Days 07/15/14 Albuterol Sulfate [Proair HFA] 2 puff IH QID 09/01/15 Atorvastatin Calcium 10 mg PO QHS 09/01/15 Fluticasone Propionate [Flonase Allergy Relief] 1 spray NASL BID 09/01/15 Pramipexole Di-HCl [Mirapex 0.25 mg Tablet] 0.25 mg PO QHS 09/01/15 Tiotropium [place] [Spiriva Respimat] 2 puff IH QAM 09/01/15 Albuterol Sulfate [Ventolin 0.083% Neb 2.5 mg/3 mL Ampul] 2.5 mg NEB RTQ4HP PRN #60 vial.neb 09/03/15 Furosemide [Lasix 20 mg Tablet] 20 mg PO DAILY tablet 09/03/15 Ipratropium [place] [Atrovent 0.02% Neb 0.5 mg/2.5 ml Ampul] 1 dose NEB Q6HP PRN #60 09/03/15 Calcium Carbonate/Vitamin D3 [Calcium 600-Vit D3 200 Tablet] 1 each PO DAILY 10/11 Aspirin [Aspirin EC] 81 mg PO DAILY 11/27/16 Meloxicam [Mobic 7.5 mg Tablet] 7.5 mg PO DAILY 11/27/16 Pantoprazole Sodium [Protonix] 20 mg PO DAILY 11/27/16 Acetaminophen [Tylenol 325 mg Tablet] 650 mg PO Q4HP PRN tablet 12/01/16 Levofloxacin [Levaquin 750 mg Tablet] 750 mg PO DAILY@1400 #5 tablet 12/01/16 Prednisone [Deltasone 20 mg Tablet] 20 mg PO ASDIR PRN #12 tablet 12/01/16 Walker [Folding Walker] 1 each MC ASDIR PRN #1 each 12/01/16 History of Present Illness Patient complains of: Shortness of breath and dyspnea History of Present Illness: 61-year-old female history of COPD on 3 L nasal cannula at baseline, diabetes mellitus type II, morbid obesity, essential hypertension and GERD; who presents with complaints of shortness of breath intermittent productive cough. Patient denies any fevers or chills no symptoms have been ongoing for approximately 1 week. Patient admits to frontal sinus pressure and headache. She states her shortness of breath has worsened over the last 3 days. She has a cough, mostly nonproductive in nature and sinus congestion. She denies any fevers or chills. Hospital Course Hospital Course: Patient was admitted to [facility] on telemetry. She was initially on BIPAP therapy. This was weaned to nasal cannula during the day and BIPAP at HS. She was started on IV broad spectrum antibiotics and steroids pending culture results. She was placed on around the clock nebulizer treatments. She began to improve with decreased wheezing and congestion . She was able to be out of bed without significant drop in oxygen saturation. Today she feels much improved. She is tolerating oral antibiotics and steroids Physical Exam Vital Signs: Temp Pulse Resp BP Pulse Ox 98.3 F 70 14 119/68 96 12/01/16 09:18 12/01/16 09:18 12/01/16 09:18 12/01/16 09:18 12/01/16 09:18 Intake & Output 11/30/16 12/01/16 12/02/16 06:59 06:59 06:59 Intake Total 2863 2156 Output Total 2560 2800 Balance 303 -644 Weight 113.2 kg 113.1 kg General appearance: PRESENT: no acute distress, morbidly obese, well-developed, well-nourished Head exam: PRESENT: atraumatic, normocephalic Eye exam: PRESENT: conjunctiva pink, EOMI, PERRLA. ABSENT: scleral icterus Ear exam: PRESENT: normal external ear exam Mouth exam: PRESENT: moist, tongue midline Throat exam: PRESENT: post pharyngeal erythema Neck exam: ABSENT: carotid bruit, JVD, lymphadenopathy, thyromegaly Respiratory exam: PRESENT: clear to auscultation alysia, decreased breath sounds, symmetrical, unlabored Cardiovascular exam: PRESENT: RRR. ABSENT: diastolic murmur, rubs, systolic murmur Pulses: PRESENT: normal dorsalis pedis pul Vascular exam: PRESENT: normal capillary refill GI/Abdominal exam: PRESENT: normal bowel sounds, soft. ABSENT: distended, guarding, mass, organolmegaly, rebound, tenderness Rectal exam: PRESENT: deferred Extremities exam: PRESENT: full ROM. ABSENT: calf tenderness, clubbing, pedal edema Neurological exam: PRESENT: alert, awake, oriented to person, oriented to place , oriented to time, oriented to situation, CN II-XII grossly intact. ABSENT: motor sensory deficit Psychiatric exam: PRESENT: appropriate affect, normal mood. ABSENT: homicidal ideation, suicidal ideation Skin exam: PRESENT: dry, intact, warm. ABSENT: cyanosis, rash Results Laboratory Results: 11/30/16 04:14 11/30/16 04:14 Impressions: Chest X-Ray 11/27/16 08:54 IMPRESSION: No acute cardiopulmonary disease. Borderline cardiomegaly. Qualifiers PATEINT BEING DISCHARGED WITH ANY OF THE FOLLOWING DIAGNOSIS?: No Plan Discharge Plan: Home with family Time Spent: Less than 30 Minutes
== END 2016-12-01 10:40 | disposition home or self-care (01) | DRG 190 ==
LOC: ER 08:34 → EH 11:59 → UNDOADMIN 12:08 → 3W 15:16
PROVIDERS: ADMIT Family Medicine; ATTEND Family Medicine
PROC: 5A09457 Assistance with Respiratory Ventilation, 24-96 Consecutive Hours, Continuous Positive Airway Pressure (ICD-10-PCS; principal; 2016-11-27)
DX: J44.1 Chronic obstructive pulmonary disease with (acute) exacerbation (principal); J96.21 Acute and chronic respiratory failure with hypoxia; I50.33 Acute on chronic diastolic (congestive) heart failure; Z68.41 Body mass index [BMI] 40.0-44.9, adult; J20.9 Acute bronchitis, unspecified; J44.0 Chronic obstructive pulmonary disease with (acute) lower respiratory infection; I11.0 Hypertensive heart disease with heart failure; J01.01 Acute recurrent maxillary sinusitis; E66.01 Morbid (severe) obesity due to excess calories; E11.9 Type 2 diabetes mellitus without complications; K21.9 Gastro-esophageal reflux disease without esophagitis; M81.0 Age-related osteoporosis without current pathological fracture; M19.90 Unspecified osteoarthritis, unspecified site; Z90.710 Acquired absence of both cervix and uterus; Z99.81 Dependence on supplemental oxygen; Z87.891 Personal history of nicotine dependence; Z79.52 Long term (current) use of systemic steroids; Z82.49 Family history of ischemic heart disease and other diseases of the circulatory system; Z79.51 Long term (current) use of inhaled steroids; Z82.5 Family history of asthma and other chronic lower respiratory diseases; Z83.3 Family history of diabetes mellitus; Z79.899 Other long term (current) drug therapy
CPT/HCPCS: 36415; 36600; 71010; 80048; 80053; 80061; 81001; 82550; 82553; 82803; 82962; 83605; 83735; 83880; 84484; 85025; 85610; 87040; 87070; 87077; 87086; 87088; 87186; 87205; 93005; 93010; 94640; 94660; 94667; 94799; 96374; 99291; J1650; J1815; J1956; J2930; J3490; J7512; J7620

== ENCOUNTER 2016-12-28 08:11 | Inpatient (IN) | payer OTHER ==
[2016-12-28] MEDS ORDERED: METHYLPREDNISOLONE INJ 125 MG/2 ML SDV IV ONE (08:24)
[2016-12-28] MEDS ORDERED: IPRATROPIUM/ALBUTEROL 0.5-2.5 MG/3 ML AMPUL NEB ONE (08:24)
--- NOTE | 2016-12-28 08:26 | ER Document Report ---
ED Respiratory Problem - General Chief Complaint: Shortness Of Breath Stated Complaint: DIFFICULTY BREATHING Time Seen by Provider: 12/28/16 08:16 Notes: The patient is a 61-year-old female, past medical history COPD (on home 4L O2), CHF, hypertension, presents from home with increasing shortness of breath over the past 4 days. She noticed her oxygen sat at home was in the 50's this morning on her home 4L oxygen. She is also feeling wheezy and noticed some leg swelling bilaterally. Patient is also noticing a dull upper chest achiness. She denies nausea, vomiting, cough, fevers, back pain, calf pain, urinary symptoms or rash. TRAVEL OUTSIDE OF THE [place] IN LAST 30 DAYS: No - Related Data Allergies/Adverse Reactions: No Known Allergies Allergy (Verified 11/27/16 08:41) Past Medical History - General Information source: Patient - Social History Smoking Status: Former Smoker Family History: COPD, DM, Hypertension - Past Medical History Cardiac Medical History: Reports: Hx Congestive Heart Failure, Hx Hypertension Denies: Hx Coronary Artery Disease, Hx Heart Attack Pulmonary Medical History: Reports: Hx Asthma, Hx Bronchitis, Hx COPD, Hx Sleep Apnea Denies: Hx Pneumonia Neurological Medical History: Denies: Hx Cerebrovascular Accident, Hx Seizures Endocrine Medical History: Reports: Hx Diabetes Mellitus Type 2 Renal/ Medical History: Denies: Hx Peritoneal Dialysis GI Medical History: Reports: Hx Gastroesophageal Reflux Disease. Denies: Hx Hepatitis, Hx Hiatal Hernia, Hx Ulcer Musculoskeltal Medical History: Reports Hx Arthritis - Osteoporosis Psychiatric Medical History: Denies: Hx Depression Infectious Medical History: Denies: Hx Hepatitis Past Surgical History: Reports: Hx Hysterectomy. Denies: Hx Mastectomy, Hx Open Heart Surgery, Hx Pacemaker - Immunizations Hx Diphtheria, Pertussis, Tetanus Vaccination: No Hx Pneumococcal Vaccination: 02/04/11 Review of Systems - Review of Systems Notes: REVIEW OF SYSTEMS: CONSTITUTIONAL: -fevers, -chills EENT: -eye pain, -difficulty swallowing, -nasal congestion CARDIOVASCULAR: +chest pain, -syncope. RESPIRATORY: +cough, +SOB GASTROINTESTINAL: -abdominal pain, - nausea, -vomiting, -diarrhea GENITOURINARY: -dysuria, -hematuria MUSCULOSKELETAL: -back pain, -neck pain SKIN: -rash or skin lesions. HEMATOLOGIC: -easy bruising or bleeding. LYMPHATIC: -swollen, enlarged glands. NEUROLOGICAL: -altered mental status or loss of consciousness, -headache, - neurologic symptoms PSYCHIATRIC: -anxiety, -depression. ALL OTHER SYSTEMS REVIEWED AND NEGATIVE. Physical Exam - Vital signs Vitals: Temp Pulse Resp BP Pulse Ox 98.7 F 105 H 18 132/83 H 61 L 12/28/16 08:13 12/28/16 08:13 12/28/16 08:13 12/28/16 08:13 12/28/16 08:13 - Notes Notes: PHYSICAL EXAMINATION: GENERAL: Well-appearing, well-nourished and in no acute distress. HEAD: Atraumatic, normocephalic. EYES: Pupils equal round and reactive to light, extraocular movements intact, sclera anicteric, conjunctiva are normal. ENT: nares patent, oropharynx clear without exudates. Moist mucous membranes. NECK: Normal range of motion, supple without lymphadenopathy LUNGS: Mild respiratory distress. Diffuse wheezes. HEART: Tachycardia. ABDOMEN: Soft, nontender, normoactive bowel sounds. No guarding, no rebound. No masses appreciated. EXTREMITIES: Normal range of motion, n1+ pitting edema up to knees in bilateral lower extremities. No cyanosis. NEUROLOGICAL: Cranial nerves grossly intact. Normal speech, normal gait. Normal sensory and motor exams. PSYCH: Normal mood, normal affect. SKIN: Warm, Dry, normal turgor, no rashes or lesions noted. Course - Re-evaluation Re-evalutation: Patient seen immediately on arrival due to oxygen saturation of 54% on her usual 3 L nasal cannula. Patient placed on 5 L nasal cannula and provided 3 duonebs with improvement of her oxygenation to 88%. BiPAP is at bedside as needed, but patient says that she feels better and her oxygenation improved. After steroids and DuoNeb's, patient's wheezing has improved, but is still present. Two more albuterols ordered. CTA ordered due to tachycardia, tachypnea and hypoxia with recent hospitalization, but this did not show any pulmonary embolisms. 12/28/16 11:02 Patient ambulated with her 4L home O2 and her oxygenation decreased down to 18% with a good pulse ox pleth. She became tachypneic and cyanotic. Road test quickly stopped, oxygen was increased to 8L and she was wheeled back to her room. When placed back in bed, her O2 improved back to 88% on her 4L and her color turned back to pink. Pt requires inpatient admission for hypoxic acute on chronic respiratory failure. With no PE, pneumonia or pulmonary edema on x-ray or CTA, suspect that her symptoms are related to a COPD or interstitial lung disease exacerbation. Her PMD is Dr. Cote. 12/28/16 11:[address] Patton and he will admit patient to IMCU as Inpatient for further evaluation. - Vital Signs Vital signs: Temp Pulse Resp BP Pulse Ox 98.7 F 105 H 19 127/75 H 77 L 12/28/16 08:13 12/28/16 08:13 12/28/16 11:07 12/28/16 11:07 12/28/16 11:07 - Laboratory Result Diagrams: 12/28/16 08:30 12/28/16 08:30 Laboratory results interpreted by me: 12/28/16 12/28/16 12/28/16 08:30 08:30 08:30 Hgb 11.3 L MCHC 31.4 L RDW 17.3 H Carbonic Acid ABG pCO2 ABG pO2 ABG HCO3 ABG Total CO2 ABG O2 Saturation Carbon Dioxide 32 H Est GFR (Non-Af Amer) 56 L Glucose 122 H Creatine Kinase 21 L NT-Pro-B Natriuret Pep 1090 H 12/28/16 08:58 Hgb MCHC RDW Carbonic Acid 1.47 H ABG pCO2 49.0 H ABG pO2 58.1 L ABG HCO3 29.0 H ABG Total CO2 30.5 H ABG O2 Saturation 89.7 L Carbon Dioxide Est GFR (Non-Af Amer) Glucose Creatine Kinase NT-Pro-B Natriuret Pep - Diagnostic Test Radiology reviewed: Image reviewed, Reports reviewed Radiology results interpreted by me: CXR: Chronic interstitial changes, NAD CTA: No PE. - EKG Interpretation by Me EKG shows normal: Sinus rhythm, [place], Intervals, QRS Complexes, ST-T Waves Rate: Normal When compared to previous EKG there are: No significant change Critical Care Note - Critical Care Note Total time excluding time spent on procedures (mins): 55 - frequent reevaluations, life-threatening disease Discharge - Discharge Clinical Impression: Acute and chronic respiratory failure with hypoxia, COPD exacerbation Condition: Fair Disposition: ADMITTED INPATIENT Admitting Provider: Hospitalist - [facility] Admitted: IMCU Referrals: GEO COTE MD [Primary Care Provider] - Follow up as needed
[2016-12-28 08:55] LABS: ABSOLUTE EOSINOPHILS # (AUTO) 0.2 10^3/uL (0.0-0.6); ABSOLUTE LYMPHOCYTES (AUTO) 0.9 10^3/uL (0.5-4.7); ABSOLUTE MONOCYTES (AUTO) 0.6 10^3/uL (0.1-1.4); ABSOLUTE NEUT (AUTO) 4.8 10^3/uL (1.7-8.2); BASOPHILS % (AUTO) 0.6 % (0-2); HEMATOCRIT 36.1 % (36.0-47.0); HEMOGLOBIN 11.3 g/dL (12.0-15.5); HGB HCT DIFFERENCE -2.2; MEAN CORPUSCULAR HEMOGLOBIN 27.5 pg (27.0-33.4); MEAN CORPUSCULAR HGB CONC 31.4 g/dL (32.0-36.0); MEAN CORPUSCULAR VOLUME 88 fl (80-97); RED BLOOD COUNT 4.12 10^6/uL (3.72-5.28); RED CELL DISTRIBUTION WIDTH 17.3 % (11.5-14.0); SEGMENTED NEUTROPHILS % (AUTO) 73.4 % (42-78); WHITE BLOOD COUNT 6.5 10^3/uL (4.0-10.5)
--- NOTE | 2016-12-28 09:12 | RADIOLOGY REPORT (SQ) ---
EXAM DESCRIPTION: CHEST SINGLE VIEW COMPLETED DATE/TIME: 12/28/2016 9:03 am REASON FOR STUDY: hypoxia COMPARISON: 11/27/2016 and 11/03/2015. EXAM PARAMETERS: NUMBER OF VIEWS: One view. TECHNIQUE: Single frontal radiographic view of the chest acquired. RADIATION DOSE: NA LIMITATIONS: None. FINDINGS: LUNGS AND PLEURA: Mild interstitial changes, probably chronic. No lobar infiltrate, mana s or pneumothorax. No pleural effusion. MEDIASTINUM AND HILAR STRUCTURES: No masses. Contour normal. HEART AND VASCULAR STRUCTURES: Heart upper limits of normal in size. Normal vasculature. BONES: No acute findings. HARDWARE: None in the chest. OTHER: No other significant finding. IMPRESSION: PROBABLE CHRONIC INTERSTITIAL CHANGES. NO OTHER SIGNIFICANT RADIOGRAPHIC FINDING IN THE CHEST. TECHNICAL DOCUMENTATION: JOB ID: [id number]
[2016-12-28 09:14] LABS: ALANINE AMINOTRANSFERASE 25 U/L (9-52); ALBUMIN 3.8 g/dL (3.5-5.0); ALKALINE PHOSPHATASE 87 U/L (38-126); ANION GAP 9 (5-19); ASPARTATE AMINO TRANSFERASE 16 U/L (14-36); BILIRUBIN,DIRECT 0.4 mg/dL (0.0-0.4); BILIRUBIN,TOTAL 0.7 mg/dL (0.2-1.3); BLOOD UREA NITROGEN 18 mg/dL (7-20); CALCIUM 9.6 mg/dL (8.4-10.2); CARBON DIOXIDE 32 mmol/L (22-30); CHLORIDE 99 mmol/L (98-107); CREATINE KINASE 21 U/L (30-135); GLUCOSE 122 mg/dL (75-110); LIPASE 43.5 U/L (23-300); POTASSIUM 4.9 mmol/L (3.6-5.0); SODIUM 140.4 mmol/L (137-145); TOTAL PROTEIN 6.4 g/dL (6.3-8.2)
[2016-12-28 09:26] LABS: ARTERIAL BLOOD BASE EXCESS 3.3 mmol/L; ARTERIAL BLOOD O2 SATURATION 89.7 % (94-98)
[2016-12-28 09:27] LABS: TROPONIN I < 0.012 ng/mL
--- NOTE | 2016-12-28 10:31 | RADIOLOGY REPORT (SQ) ---
EXAM DESCRIPTION: CTA CHEST COMPLETED DATE/TIME: 12/28/2016 10:14 am REASON FOR STUDY: hypoxia, tachycardia, recent hospitalization COMPARISON: 11/01/2015. TECHNIQUE: CT scan of the chest performed using helical scanning technique with dynamic intravenous contrast injection. Images reviewed with lung, soft tissue and bone windows. Reconstructed coronal and sagittal MPR images reviewed. Additional 3 dimensional post-processing performed to develop Maximal Intensity Projection images (VT P). All images stored on PACS. All CT scanners at this facility use dose modulation, iterative reconstruction, and/or weight based d osing when appropriate to reduce radiation dose to as low as reasonably achievable (ALARA). [facility]: Dose Right [facility]: CareDose [facility]: Dose Right [facility]: Teradose 4D [facility]: Globitel CONTRAST TYPE AND DOSE: contrast/concentration: Isovue 370.00 mg/ml; Total Contrast Delivered: 64.0 ml; Total Saline Delivered: 97.7 ml Contrast bolus optimized for the pulmonary arteries. Not diagnostic for the aorta. RENAL FUNCTION: BUN 18 creatinine 1.0. RADIATION DOSE: Up-to-date CT equipment and radiation dose reduction techniques were employed. CTDIv ol: 32.3 - 33.1 mGy. DLP: 1306 mGy-cm. . LIMITATIONS: None. FINDINGS: LUNGS AND PLEURA: Emphysematous changes with chronic scarring. No focal infiltrates. Min imal pleural fluid versus pleural thickening. AORTA AND GREAT VESSELS: No aneurysm. Contrast bolus not optimized for the aorta. HEART: No pericardial effusion. No significant coronary artery calcifications. PULMONARY ARTERIES: No emboli visualized in the main pulmonary arteries or the segmental branches. HILAR AND MEDIASTINAL STRUCTURES: No identified masses or abnormal nodes. HARDWARE: None in the chest. UPPER ABDOMEN: No significant findings. Limited exam. THYROID AND OTHER SOFT TISSUES: No masses. No adenopathy. BONES: No acute or significant finding. 3D MIPS: Confirm above findings. OTHER: No other significant finding. IMPRESSION: NORMAL CTA OF THE CHEST. NO PULMONARY EMBOLI. EMPHYSEMATOUS CHANGES WITH CHRONIC SCARRING. NO APPARENT ACUTE FINDINGS. COMMENT: Quality ID # [id number]: Final reports with documentation of one or more dose reduction techniques (e.g., Automated exposure control, adjustment of the mA and/or kV according to patient size, use of iterative reconstruction technique) TECHNICAL DOCUMENTATION: JOB ID: [id number]- All Rights Reserved
[2016-12-28] MEDS ORDERED: ALBUTEROL SULFATE 0.083% NEB 2.5 MG/3 ML AMPUL NEB ONE (10:32)
[2016-12-28] MEDS ORDERED: ONDANSETRON 4 MG TAB.RAPDIS PO PRN (11:42)
[2016-12-28] MEDS ORDERED: ONDANSETRON HCL INJ/PF 4 MG/2 ML SDV IV PRN (11:42)
[2016-12-28] MEDS ORDERED: ALBUTEROL SULFATE 0.083% NEB 2.5 MG/3 ML AMPUL NEB PRN (11:42)
[2016-12-28] MEDS ORDERED: ACETAMINOPHEN 325 MG TABLET PO PRN (11:42)
[2016-12-28] MEDS ORDERED: ASPIRIN 325 MG TABLET PO ONE (11:46)
[2016-12-28] MEDS ORDERED: DEXTROSE 50%-WATER 25 GM/50 ML DISP.SYRIN IV PRN ×2 (11:48)
[2016-12-28] MEDS ORDERED: DEXTROSE 40% GEL 15 GM TUBE PO PRN ×2 (11:48)
[2016-12-28] MEDS ORDERED: GLUCAGON,HUMAN RECOMB 1 MG INJ IM PRN (11:48)
--- NOTE | 2016-12-28 11:57 | PDOC H&P ---
History of Present Illness Admission Date/PCP: GEO COTE MD Patient complains of: Shortness of breath History of Present Illness: JIMMY SCHRADER is a 61 year old female with a history of COPD chronically on 4 L per nasal cannula who presents with a 3 day history of a nonproductive cough and worsening shortness of breath. The patient reports that over the last 3 days she has had worsening shortness of breath. He has had a cough but reports that has been nonproductive. She denies having any fevers or chills. She denies any orthopnea or PND. She does report having some mild lower extremity edema however. The patient denies having any chest pain or palpitations. She reports that her blood sugars have been under good control. She denies any recent traveling. She has not been outside of [facility]. She does have dyspnea on exertion but does not have any chest pain associated with this. Past Medical History Cardiac Medical History: Reports: Congestive Heart Failure - Diastolic congestive heart failure, Hyperlipidema, Hypertension Denies: Coronary Artery Disease, Myocardial Infarction Pulmonary Medical History: Reports: Asthma, Bronchitis, Chronic Obstructive Pulmonary Disease (COPD) - Chronically on 4 L per nasal cannula, Sleep Apnea - Uses CPAP. Denies: Pneumonia EENT Medical History: Reports: Other - Glaucoma Neurological Medical History: Reports: Other - Restless leg syndrome Denies: Seizures Endocrine Medical History: Reports: Diabetes Mellitus Type 2 Renal/ Medical History: Reports: None Malignancy Medical History: Reports: None GI Medical History: Reports: Gastroesophageal Reflux Disease Denies: Hepatitis, Hiatal Hernia Musculoskeltal Medical History: Reports: Arthritis - Osteoporosis Psychiatric Medical History: Denies: Depression Traumatic Medical History: Reports: None Hematology: Denies: Anemia, Sickle Cell Disease Infectious Medical History: Reports: None Past Surgical History Past Surgical History: Reports: Hysterectomy Denies: Amputation, Mastectomy, Pacemaker Social History Information Source: Patient Lives with: Spouse/Significant other Smoking Status: Former Smoker Frequency of Alcohol Use: None Hx Recreational Drug Use: No Drugs: None Hx Prescription Drug Abuse: No - Advance Directive Resuscitation Status: Full Code Surrogate healthcare decision maker:: Her Family History Family History: COPD, DM, Hypertension Family History: Mother at age 78 had liver cancer. Father at age 79 and had lung cancer. Parental Family History Reviewed: Yes Children Family History Reviewed: No Sibling(s) Family History Reviewed.: No Medication/Allergy Home Medications: Albuterol Sulfate [Albuterol Sulfate 2.5mg/3 mL] 1 vial IH RTQ4HP PRN 12/28/16 Albuterol Sulfate [Proair Hfa Inhalation Aerosol 8.5 gm Mdi] 2 puff IH Q6HP PRN 12/28/16 Aspirin [Aspirin EC] 81 mg PO DAILY 12/28/16 Atorvastatin Calcium [Lipitor 10 mg Tablet] 10 mg PO QHS 12/28/16 Calcium Carbonate/Vitamin D3 [Calcium 600-Vit D3 200 Tablet] 1 each PO DAILY 06/14 Carvedilol [Coreg 3.125 mg Tablet] 3.125 mg PO Q12 12/28/16 Cetirizine HCl [Zyrtec 5 mg Tablet] 5 mg PO Q12 12/28/16 Diltiazem HCl [Diltiazem ER] 120 mg PO DAILY 12/28/16 Fluticasone Propionate [Flonase Nasal [place] 50 Mcg/[place] 16 gm] 1 spray NASL Q12 12/28/16 Fluticasone/Salmeterol [Advair 500-50 Diskus 14 Dose/Diskus] 1 inh IH Q12 Furosemide [Lasix 20 mg Tablet] 20 mg PO QAM 12/28/16 Ipratropium/Albuterol Sulfate [Duoneb 3 ml Ampul] 3 ml NEB RTQ6HP PRN 12/28/16 Magnesium Oxide [Mag-Ox 400 mg Tablet] 400 mg PO Q12 12/28/16 Meloxicam [Mobic 7.5 Mg Tablet] 7.5 mg PO DAILY 12/28/16 Metformin HCl [Glucophage 500 mg Tablet] 500 mg PO BIDACBS 12/28/16 Montelukast Sodium [Singulair 10 mg Tablet] 10 mg PO QHS 12/28/16 Pantoprazole Sodium [Protonix] 40 mg PO DAILY 12/28/16 Pramipexole Di-HCl [Mirapex 0.25 Mg Tablet] 0.25 mg PO QHS 12/28/16 Ramipril [Altace 10 mg Capsule] 10 mg PO DAILY 12/28/16 Tiotropium [place] [Spiriva Respimat] 2 puff IH DAILY 12/28/16 Allergies/Adverse Reactions: No Known Allergies Allergy (Verified 11/27/16 08:41) Review of Systems Constitutional: ABSENT: chills, fever(s), headache(s), weight gain, weight loss Eyes: ABSENT: visual disturbances Ears: ABSENT: hearing changes Cardiovascular: PRESENT: dyspnea on exertion, edema. ABSENT: chest pain, orthropnea, palpitations Respiratory: PRESENT: as per HPI Gastrointestinal: ABSENT: abdominal pain, constipation, diarrhea, hematemesis, hematochezia, nausea, vomiting Genitourinary: ABSENT: dysuria, hematuria Musculoskeletal: ABSENT: joint swelling Integumentary: ABSENT: rash, wounds Neurological: PRESENT: restless legs. ABSENT: abnormal gait, abnormal speech, confusion, dizziness, focal weakness, syncope Psychiatric: ABSENT: anxiety, depression Endocrine: ABSENT: cold intolerance, heat intolerance, polydipsia, polyuria Hematologic/Lymphatic: ABSENT: easy bleeding, easy bruising Physical Exam Vital Signs: Temp Pulse Resp BP Pulse Ox 98.7 F 105 H 19 127/75 H 77 L 12/28/16 08:13 12/28/16 08:13 12/28/16 11:07 12/28/16 11:07 12/28/16 11:07 Intake & Output 12/27/16 12/28/16 12/29/16 06:59 06:59 06:59 Weight 107.501 kg General appearance: PRESENT: no acute distress, obese Head exam: PRESENT: atraumatic, normocephalic Eye exam: PRESENT: conjunctiva pink, EOMI, PERRLA. ABSENT: scleral icterus Ear exam: PRESENT: normal external ear exam Mouth exam: PRESENT: moist, tongue midline Neck exam: ABSENT: carotid bruit, JVD, lymphadenopathy, thyromegaly Respiratory exam: PRESENT: wheezes - Bilateral expiratory wheezes. ABSENT: rales, rhonchi Cardiovascular exam: PRESENT: RRR. ABSENT: diastolic murmur, rubs, systolic murmur Pulses: PRESENT: normal dorsalis pedis pul Vascular exam: PRESENT: normal capillary refill GI/Abdominal exam: PRESENT: normal bowel sounds, soft. ABSENT: distended, guarding, mass, organolmegaly, rebound, tenderness Rectal exam: PRESENT: deferred Extremities exam: PRESENT: pedal edema - Trace pedal edema. ABSENT: calf tenderness, clubbing Neurological exam: PRESENT: alert, awake, oriented to person, oriented to place , oriented to time, oriented to situation, CN II-XII grossly intact. ABSENT: motor sensory deficit Psychiatric exam: PRESENT: appropriate affect Skin exam: PRESENT: dry, intact, warm. ABSENT: cyanosis, rash Results Laboratory Results: 12/28/16 08:30 12/28/16 08:30 12/28/16 12/28/16 12/28/16 08:30 08:30 08:30 WBC 6.5 RBC 4.12 Hgb 11.3 L Hct 36.1 MCV 88 MCH 27.5 MCHC 31.4 L RDW 17.3 H Plt Count 314 Seg Neutrophils % 73.4 Lymphocytes % 14.0 Monocytes % 9.0 Eosinophils % 3.0 Basophils % 0.6 Absolute Neutrophils 4.8 Absolute Lymphocytes 0.9 Absolute Monocytes 0.6 Absolute Eosinophils 0.2 Absolute Basophils 0.0 Carbonic Acid HCO3/H2CO3 Ratio ABG pH ABG pCO2 ABG pO2 ABG HCO3 ABG O2 Saturation ABG Base Excess FiO2 Sodium 140.4 Potassium 4.9 Chloride 99 Carbon Dioxide 32 H Anion Gap 9 BUN 18 Creatinine 1.00 Est GFR ( Amer) > 60 Est GFR (Non-Af Amer) 56 L Glucose 122 H Lactic Acid 1.2 Calcium 9.6 Total Bilirubin 0.7 AST 16 ALT 25 Alkaline Phosphatase 87 Total Protein 6.4 Albumin 3.8 Lipase 43.5 12/28/16 08:58 WBC RBC Hgb Hct MCV MCH MCHC RDW Plt Count Seg Neutrophils % Lymphocytes % Monocytes % Eosinophils % Basophils % Absolute Neutrophils Absolute Lymphocytes Absolute Monocytes Absolute Eosinophils Absolute Basophils Carbonic Acid 1.47 H HCO3/H2CO3 Ratio 19:1 ABG pH 7.39 ABG pCO2 49.0 H ABG pO2 58.1 L ABG HCO3 29.0 H ABG O2 Saturation 89.7 L ABG Base Excess 3.3 FiO2 4L Sodium Potassium Chloride Carbon Dioxide Anion Gap BUN Creatinine Est GFR ( Amer) Est GFR (Non-Af Amer) Glucose Lactic Acid Calcium Total Bilirubin AST ALT Alkaline Phosphatase Total Protein Albumin Lipase 12/28/16 12/28/16 08:30 08:30 Creatine Kinase 21 L Troponin I < 0.012 NT-Pro-B Natriuret Pep 1090 H Impressions: Chest X-Ray 12/28/16 08:18 IMPRESSION: PROBABLE CHRONIC INTERSTITIAL CHANGES. NO OTHER SIGNIFICANT RADIOGRAPHIC FINDING IN THE CHEST. Chest/Abdomen CTA 09/02/17 09:39 IMPRESSION: NORMAL CTA OF THE CHEST. NO PULMONARY EMBOLI. EMPHYSEMATOUS CHANGES WITH CHRONIC SCARRING. NO APPARENT ACUTE FINDINGS. Assessment & Plan - Diagnosis (1) Acute and chronic respiratory failure with hypoxia Is this a current diagnosis for this admission?: Yes Plan: Secondary to acute COPD exacerbation. She chronically uses 4 L per nasal cannula. (2) COPD exacerbation Is this a current diagnosis for this admission?: Yes Plan: Patient chronically uses 4 L per nasal cannula. The patient will be given IV steroids, nebulizers. There is no evidence for infection we will hold off on starting any antibiotics at this time. (3) Hypertension Is this a current diagnosis for this admission?: Yes Plan: We will continue with her Altace and Coreg. (4) Gastroesophageal reflux disease Is this a current diagnosis for this admission?: Yes Plan: Patient takes Nexium as an outpatient. (5) Congestive heart failure Is this a current diagnosis for this admission?: Yes Plan: Patient has chronic diastolic dysfunction. She appears to be euvolemic at this time. (6) Obstructive sleep apnea on CPAP Is this a current diagnosis for this admission?: Yes Plan: Patient uses CPAP nightly. (7) Restless leg syndrome Is this a current diagnosis for this admission?: Yes Plan: She takes Mirapex nightly. (8) Hyperlipidemia Is this a current diagnosis for this admission?: Yes Plan: We will continue with Lipitor. (9) Morbid obesity with BMI of 40.0-44.9, adult Is this a current diagnosis for this admission?: Yes - Time Time Spent: 50 to 70 Minutes - Inpatient Certification Medical Necessity: Need Close Monitoring Due to Risk of Patient Decompensation
[2016-12-28] MEDS: IPRATROPIUM/ALBUTEROL 0.5-2.5 MG/3 ML AMPUL NEB SCH ×3 (12:24→20:11)
[2016-12-28] MEDS ORDERED: ENOXAPARIN SODIUM INJ 40 MG/0.4 ML DISP.SYRIN SUBCUT ONE (12:30)
--- NOTE | 2016-12-28 13:56 | EKG REPORT ---
SEVERITY:- ABNORMAL ECG - ARTIFACTS SINUS RHYTHM : Confirmed by: Gonzalo Kunz 28-Dec-2016 13:55:52
[2016-12-28] MEDS: METHYLPREDNISOLONE INJ 40 MG/1 ML SDV IV SCH ×2 (14:24→21:13)
[2016-12-28] MEDS: INSULIN LISPRO 100 UNIT/ML 3 ML VIAL SUBCUT PRN ×2 (17:22→23:13)
[2016-12-28] MEDS: CARVEDILOL 3.125 MG TABLET PO SCH (21:12)
[2016-12-28] MEDS: MAGNESIUM OXIDE 400 MG TABLET PO SCH (21:12)
[2016-12-28] MEDS: CETIRIZINE 5 MG TABLET PO SCH (21:12)
[2016-12-28] MEDS: ATORVASTATIN CALCIUM 10 MG TABLET PO SCH (21:12)
[2016-12-28] MEDS: PRAMIPEXOLE DI-HCL 0.25 MG TABLET PO SCH (21:13)
[2016-12-28] MEDS: MONTELUKAST SODIUM 10 MG TABLET PO SCH (21:13)
[2016-12-28] MEDS: FLUTICASONE/SALMETEROL DISKUS 500-50 MCG/DOSE IH SCH (21:13)
[2016-12-28] MEDS: FLUTICASONE NASAL SPRAY 50 MCG/SPRY 120 SPRAY/16 GM NASL SCH (21:14)
[2016-12-29] MEDS: IPRATROPIUM/ALBUTEROL 0.5-2.5 MG/3 ML AMPUL NEB SCH ×7 (00:09→23:41)
[2016-12-29 05:46] LABS: ABSOLUTE LYMPHOCYTES (AUTO) 0.7 10^3/uL (0.5-4.7); ABSOLUTE MONOCYTES (AUTO) 0.2 10^3/uL (0.1-1.4); ABSOLUTE NEUT (AUTO) 4.6 10^3/uL (1.7-8.2); BASOPHILS % (AUTO) 0.1 % (0-2); HEMOGLOBIN 10.7 g/dL (12.0-15.5); HGB HCT DIFFERENCE -0.9; LYMPHOCYTES % (AUTO) 12.8 % (13-45); MEAN CORPUSCULAR HEMOGLOBIN 27.5 pg (27.0-33.4); MEAN CORPUSCULAR HGB CONC 32.3 g/dL (32.0-36.0); MEAN CORPUSCULAR VOLUME 85 fl (80-97); MONOCYTES % (AUTO) 3.5 % (3-13); RED BLOOD COUNT 3.87 10^6/uL (3.72-5.28); RED CELL DISTRIBUTION WIDTH 17.4 % (11.5-14.0); SEGMENTED NEUTROPHILS % (AUTO) 83.6 % (42-78); WHITE BLOOD COUNT 5.5 10^3/uL (4.0-10.5)
[2016-12-29 05:57] LABS: ANION GAP 10 (5-19); BLOOD UREA NITROGEN 21 mg/dL (7-20); CALCIUM 9.3 mg/dL (8.4-10.2); CARBON DIOXIDE 32 mmol/L (22-30); CHLORIDE 100 mmol/L (98-107); CREATININE RESULT 0.89 mg/dL (0.52-1.25); GLUCOSE 196 mg/dL (75-110); MAGNESIUM 2.2 mg/dL (1.6-2.3); POTASSIUM 4.2 mmol/L (3.6-5.0); SODIUM 142.4 mmol/L (137-145)
[2016-12-29] MEDS: METHYLPREDNISOLONE INJ 40 MG/1 ML SDV IV SCH ×3 (06:36→22:42)
[2016-12-29] MEDS: INSULIN LISPRO 100 UNIT/ML 3 ML VIAL SUBCUT PRN ×4 (08:08→22:48)
[2016-12-29] MEDS: FUROSEMIDE 20 MG TABLET PO SCH (08:08)
[2016-12-29] MEDS: FLUTICASONE/SALMETEROL DISKUS 500-50 MCG/DOSE IH SCH ×2 (09:45→22:42)
[2016-12-29] MEDS: FLUTICASONE NASAL SPRAY 50 MCG/SPRY 120 SPRAY/16 GM NASL SCH ×2 (09:45→22:42)
[2016-12-29] MEDS: TIOTROPIUM BROMIDE DPI 5 CAP/KIT (18 MCG/CAP) IH SCH (09:46)
[2016-12-29] MEDS: CETIRIZINE 5 MG TABLET PO SCH ×2 (09:47→22:15)
[2016-12-29] MEDS: ASPIRIN 81 MG TABLET, ENT COATED PO SCH (09:47)
[2016-12-29] MEDS: MAGNESIUM OXIDE 400 MG TABLET PO SCH ×2 (09:48→22:39)
[2016-12-29] MEDS: CARVEDILOL 3.125 MG TABLET PO SCH ×2 (09:48→22:12)
[2016-12-29] MEDS: CALCIUM CARBONATE 250 MG/VITAMIN D3 125 UNIT TABLET PO SCH (09:48)
[2016-12-29] MEDS: LANSOPRAZOLE 30 MG TAB.RAP.DR PO SCH (09:49)
[2016-12-29] MEDS: DILTIAZEM HCL 120 MG CAP.SR.24H PO SCH (09:49)
[2016-12-29] MEDS: RAMIPRIL 10 MG CAPSULE PO SCH (09:50)
[2016-12-29] MEDS: ENOXAPARIN SODIUM INJ 40 MG/0.4 ML DISP.SYRIN SUBCUT SCH (09:50)
[2016-12-29] MEDS ORDERED: (PENDING PHARMACY ID) (Diltiazem Hcl [Diltiazem 24hr Er] 120 MG) PO SCH (10:00)
[2016-12-29] MEDS ORDERED: (PENDING PHARMACY ID) (Tiotropium Bromide [Spiriva Respimat] 2 PUFF) IH SCH (10:00)
[2016-12-29] MEDS ORDERED: (PENDING PHARMACY ID) (Calcium Carbonate/Vitamin D3 [Calcium 600-Vit D3 200 Tablet] 1 EACH PO SCH (10:00)
--- NOTE | 2016-12-29 10:14 | PDOC PROGRESS REPORT ---
Subjective Progress Note for:: 12/29/16 Subjective:: Reports her breathing is doing better. Physical Exam Vital Signs: Temp Pulse Resp BP Pulse Ox 97.4 F 83 16 118/68 91 L 12/29/16 07:19 12/29/16 08:26 12/29/16 08:26 12/29/16 07:19 12/29/16 08:26 Intake & Output 12/28/16 12/29/16 12/30/16 06:59 06:59 06:59 Intake Total 1381 Output Total 3250 Balance -1869 Weight 110.7 kg General appearance: PRESENT: no acute distress Eye exam: PRESENT: conjunctiva pink. ABSENT: scleral icterus Mouth exam: PRESENT: moist, tongue midline Neck exam: ABSENT: JVD Respiratory exam: PRESENT: wheezes - Few scattered expiratory wheezes.. ABSENT : rales, rhonchi Cardiovascular exam: PRESENT: RRR. ABSENT: diastolic murmur, rubs, systolic murmur GI/Abdominal exam: PRESENT: normal bowel sounds, soft. ABSENT: distended, guarding, mass, organolmegaly, rebound, tenderness Extremities exam: ABSENT: calf tenderness, clubbing, pedal edema Neurological exam: PRESENT: alert, awake, oriented to person, oriented to place , oriented to time, oriented to situation, CN II-XII grossly intact. ABSENT: motor sensory deficit Psychiatric exam: PRESENT: appropriate affect Skin exam: PRESENT: dry, intact, warm. ABSENT: cyanosis, rash Results Laboratory Results: 12/29/16 05:03 12/29/16 05:03 12/29/16 12/29/16 05:03 05:03 WBC 5.5 RBC 3.87 Hgb 10.7 L Hct 33.0 L MCV 85 MCH 27.5 MCHC 32.3 RDW 17.4 H Plt Count 290 Seg Neutrophils % 83.6 H Lymphocytes % 12.8 L Monocytes % 3.5 Eosinophils % 0.0 Basophils % 0.1 Absolute Neutrophils 4.6 Absolute Lymphocytes 0.7 Absolute Monocytes 0.2 Absolute Eosinophils 0.0 Absolute Basophils 0.0 Sodium 142.4 Potassium 4.2 Chloride 100 Carbon Dioxide 32 H Anion Gap 10 BUN 21 H Creatinine 0.89 Est GFR ( Amer) > 60 Est GFR (Non-Af Amer) > 60 Glucose 196 H Calcium 9.3 Magnesium 2.2 Impressions: Chest X-Ray 12/28/16 08:18 IMPRESSION: PROBABLE CHRONIC INTERSTITIAL CHANGES. NO OTHER SIGNIFICANT RADIOGRAPHIC FINDING IN THE CHEST. Chest/Abdomen CTA 12/28/16 09:39 IMPRESSION: NORMAL CTA OF THE CHEST. NO PULMONARY EMBOLI. EMPHYSEMATOUS CHANGES WITH CHRONIC SCARRING. NO APPARENT ACUTE FINDINGS. Assessment & Plan - Diagnosis (1) Acute and chronic respiratory failure with hypoxia Is this a current diagnosis for this admission?: Yes Plan: Secondary to acute COPD exacerbation. She chronically uses 4 L per nasal cannula. (2) COPD exacerbation Is this a current diagnosis for this admission?: Yes Plan: Patient chronically uses 4 L per nasal cannula. The patient is being given IV steroids, nebulizers. (3) Hypertension Is this a current diagnosis for this admission?: Yes Plan: We will continue with her Altace and Coreg. (4) Gastroesophageal reflux disease Is this a current diagnosis for this admission?: Yes Plan: Patient takes Nexium as an outpatient. (5) Congestive heart failure Is this a current diagnosis for this admission?: Yes Plan: Patient has chronic diastolic dysfunction. She appears to be euvolemic at this time. (6) Obstructive sleep apnea on CPAP Is this a current diagnosis for this admission?: Yes Plan: Patient uses CPAP nightly. (7) Restless leg syndrome Is this a current diagnosis for this admission?: Yes Plan: She takes Mirapex nightly. (8) Hyperlipidemia Is this a current diagnosis for this admission?: Yes Plan: We will continue with Lipitor. (9) Morbid obesity with BMI of 40.0-44.9, adult Is this a current diagnosis for this admission?: Yes - Time Time Spent with patient: 25-34 minutes - Inpatient Certification Medical Necessity: Need Close Monitoring Due to Risk of Patient Decompensation
[2016-12-29] MEDS: MELOXICAM 7.5 MG TABLET PO SCH (11:24)
[2016-12-29] MEDS: ATORVASTATIN CALCIUM 10 MG TABLET PO SCH (22:11)
[2016-12-29] MEDS: PRAMIPEXOLE DI-HCL 0.25 MG TABLET PO SCH (22:42)
[2016-12-29] MEDS: MONTELUKAST SODIUM 10 MG TABLET PO SCH (22:43)
[2016-12-30] MEDS: IPRATROPIUM/ALBUTEROL 0.5-2.5 MG/3 ML AMPUL NEB SCH ×2 (04:09→08:04)
[2016-12-30] MEDS: METHYLPREDNISOLONE INJ 40 MG/1 ML SDV IV SCH (06:11)
[2016-12-30 06:40] LABS: ABSOLUTE LYMPHOCYTES (AUTO) 0.6 10^3/uL (0.5-4.7); ABSOLUTE MONOCYTES (AUTO) 0.4 10^3/uL (0.1-1.4); ABSOLUTE NEUT (AUTO) 8.5 10^3/uL (1.7-8.2); HEMATOCRIT 31.1 % (36.0-47.0); HEMOGLOBIN 10.2 g/dL (12.0-15.5); HGB HCT DIFFERENCE -0.5; LYMPHOCYTES % (AUTO) 5.9 % (13-45); MEAN CORPUSCULAR HEMOGLOBIN 27.7 pg (27.0-33.4); MEAN CORPUSCULAR HGB CONC 32.7 g/dL (32.0-36.0); MEAN CORPUSCULAR VOLUME 85 fl (80-97); MONOCYTES % (AUTO) 4.3 % (3-13); RED BLOOD COUNT 3.67 10^6/uL (3.72-5.28); RED CELL DISTRIBUTION WIDTH 17.2 % (11.5-14.0); SEGMENTED NEUTROPHILS % (AUTO) 89.8 % (42-78); WHITE BLOOD COUNT 9.5 10^3/uL (4.0-10.5)
[2016-12-30 06:44] LABS: ANION GAP 10 (5-19); BLOOD UREA NITROGEN 33 mg/dL (7-20); CALCIUM 8.9 mg/dL (8.4-10.2); CARBON DIOXIDE 30 mmol/L (22-30); CHLORIDE 101 mmol/L (98-107); CREATININE RESULT 0.91 mg/dL (0.52-1.25); GLUCOSE 173 mg/dL (75-110); POTASSIUM 4.7 mmol/L (3.6-5.0); SODIUM 140.6 mmol/L (137-145)
[2016-12-30] MEDS: FUROSEMIDE 20 MG TABLET PO SCH (07:44)
[2016-12-30] MEDS: INSULIN LISPRO 100 UNIT/ML 3 ML VIAL SUBCUT PRN (07:44)
[2016-12-30 09:09] VITALS: BP 119/63
[2016-12-30] MEDS: ENOXAPARIN SODIUM INJ 40 MG/0.4 ML DISP.SYRIN SUBCUT SCH (09:20)
[2016-12-30] MEDS: FLUTICASONE NASAL SPRAY 50 MCG/SPRY 120 SPRAY/16 GM NASL SCH (09:22)
[2016-12-30] MEDS: FLUTICASONE/SALMETEROL DISKUS 500-50 MCG/DOSE IH SCH (09:24)
[2016-12-30] MEDS: TIOTROPIUM BROMIDE DPI 5 CAP/KIT (18 MCG/CAP) IH SCH (09:25)
[2016-12-30] MEDS: MELOXICAM 7.5 MG TABLET PO SCH (09:26)
[2016-12-30] MEDS: CALCIUM CARBONATE 250 MG/VITAMIN D3 125 UNIT TABLET PO SCH (09:27)
[2016-12-30] MEDS: MAGNESIUM OXIDE 400 MG TABLET PO SCH (09:27)
[2016-12-30] MEDS: CETIRIZINE 5 MG TABLET PO SCH (09:27)
[2016-12-30] MEDS: CARVEDILOL 3.125 MG TABLET PO SCH (09:28)
[2016-12-30] MEDS: DILTIAZEM HCL 120 MG CAP.SR.24H PO SCH (09:28)
[2016-12-30] MEDS: RAMIPRIL 10 MG CAPSULE PO SCH (09:28)
[2016-12-30] MEDS: LANSOPRAZOLE 30 MG TAB.RAP.DR PO SCH (09:29)
[2016-12-30] MEDS: ASPIRIN 81 MG TABLET, ENT COATED PO SCH (09:29)
--- NOTE | 2016-12-30 12:22 | PDOC DISCHARGE SUMMARY ---
General - Admit/Disc Date/PCP Admission Date/Primary Care Provider: 12/28/16 11:42 GEO COTE MD Discharge Date: 12/30/16 - Discharge Diagnosis (1) Acute and chronic respiratory failure with hypoxia Is this a current diagnosis for this admission?: Yes (2) COPD exacerbation Is this a current diagnosis for this admission?: Yes (3) Hypertension Is this a current diagnosis for this admission?: Yes (4) Gastroesophageal reflux disease Is this a current diagnosis for this admission?: Yes (5) Congestive heart failure Is this a current diagnosis for this admission?: Yes (6) Obstructive sleep apnea on CPAP Is this a current diagnosis for this admission?: Yes (7) Restless leg syndrome Is this a current diagnosis for this admission?: Yes (8) Hyperlipidemia Is this a current diagnosis for this admission?: Yes (9) Morbid obesity with BMI of 40.0-44.9, adult Is this a current diagnosis for this admission?: Yes - Additional Information Resuscitation Status: Full Code Discharge Diet: Cardiac, Diabetic Discharge Activity: Activity As Tolerated Home Medications: Albuterol Sulfate [Albuterol Sulfate 2.5mg/3 mL] 1 vial IH RTQ4HP PRN 12/28/16 Albuterol Sulfate [Proair HFA Inhalation Aerosol 8.5 gm MDI] 2 puff IH Q6HP PRN 12/28/16 Aspirin [Aspirin EC] 81 mg PO DAILY 12/28/16 Atorvastatin Calcium [Lipitor 10 mg Tablet] 10 mg PO QHS 12/28/16 Calcium Carbonate/Vitamin D3 [Calcium 600-Vit D3 200 Tablet] 1 each PO DAILY 06/14 Carvedilol [Coreg 3.125 mg Tablet] 3.125 mg PO Q12 12/28/16 Cetirizine HCl [Zyrtec 5 mg Tablet] 5 mg PO Q12 12/28/16 Diltiazem HCl [Diltiazem 24Hr ER] 120 mg PO DAILY 12/28/16 Fluticasone Propionate [Flonase Nasal [place] 50 Mcg/[place] 16 gm] 1 spray NASL Q12 12/28/16 Fluticasone/Salmeterol [Advair 500-50 Diskus 14 Dose/Diskus] 1 inh IH Q12 Furosemide [Lasix 20 mg Tablet] 20 mg PO QAM 12/28/16 Ipratropium/Albuterol Sulfate [Duoneb 3 ml Ampul] 3 ml NEB RTQ6HP PRN 12/28/16 Magnesium Oxide [Mag-Ox 400 mg Tablet] 400 mg PO Q12 12/28/16 Meloxicam [Mobic 7.5 mg Tablet] 7.5 mg PO DAILY 12/28/16 Metformin HCl [Glucophage 500 mg Tablet] 500 mg PO BIDACBS 12/28/16 Montelukast Sodium [Singulair 10 mg Tablet] 10 mg PO QHS 12/28/16 Pantoprazole Sodium [Protonix] 40 mg PO DAILY 12/28/16 Pramipexole Di-HCl [Mirapex 0.25 mg Tablet] 0.25 mg PO QHS 12/28/16 Ramipril [Altace 10 mg Capsule] 10 mg PO DAILY 12/28/16 Tiotropium [place] [Spiriva Respimat] 2 puff IH DAILY 12/28/16 Prednisone 10 mg PO DAILY #39 tablet 12/30/16 History of Present Illness History of Present Illness: JIMMY SCHRADER is a 61 year old female with a history of COPD chronically on 4 L per nasal cannula who presents with a 3 day history of a nonproductive cough and worsening shortness of breath. The patient reports that over the last 3 days she has had worsening shortness of breath. He has had a cough but reports that has been nonproductive. She denies having any fevers or chills. She denies any orthopnea or PND. She does report having some mild lower extremity edema however. The patient denies having any chest pain or palpitations. She reports that her blood sugars have been under good control. She denies any recent traveling. She has not been outside of [facility]. She does have dyspnea on exertion but does not have any chest pain associated with this. Hospital Course Hospital Course: 61-year-old female who has a long history of COPD and is chronically on oxygen at 4 L per nasal cannula who presented with a 3 day history of a nonproductive cough and worsening shortness of breath. The patient was found to have an acute COPD exacerbation along with acute respiratory failure and was admitted for treatment. She was given IV steroids and had quick improvement in her respiratory status. On the day of discharge she was back to her baseline breathing. The patient's other medical problems including congestive heart failure, hypertension, obstructive sleep apnea all were stable during this hospitalization. Physical Exam Vital Signs: Temp Pulse Resp BP Pulse Ox 97.8 F 82 18 119/63 91 L 12/30/16 08:57 12/30/16 08:57 12/30/16 08:57 12/30/16 08:57 12/30/16 08:57 Intake & Output 12/29/16 12/30/16 12/31/16 06:59 06:59 06:59 Intake Total 1381 1021 Output Total 3250 5980 Balance -1869 -1729 Weight 110.7 kg 104.6 kg General appearance: PRESENT: no acute distress Eye exam: PRESENT: conjunctiva pink Mouth exam: PRESENT: moist, tongue midline Neck exam: ABSENT: JVD Respiratory exam: PRESENT: clear to auscultation alysia. ABSENT: rales, rhonchi, wheezes Cardiovascular exam: PRESENT: RRR. ABSENT: diastolic murmur, rubs, systolic murmur GI/Abdominal exam: PRESENT: normal bowel sounds, soft. ABSENT: distended, guarding, mass, organolmegaly, rebound, tenderness Extremities exam: ABSENT: calf tenderness, clubbing, pedal edema Neurological exam: PRESENT: alert, awake, oriented to person, oriented to place , oriented to time, oriented to situation, CN II-XII grossly intact. ABSENT: motor sensory deficit Psychiatric exam: PRESENT: appropriate affect Skin exam: PRESENT: dry, intact, warm. ABSENT: cyanosis, rash Results Laboratory Results: 12/30/16 05:34 12/30/16 05:34 12/30/16 12/30/16 05:34 05:34 WBC 9.5 RBC 3.67 L Hgb 10.2 L Hct 31.1 L MCV 85 MCH 27.7 MCHC 32.7 RDW 17.2 H Plt Count 305 Seg Neutrophils % 89.8 H Lymphocytes % 5.9 L Monocytes % 4.3 Eosinophils % 0.0 Basophils % 0.0 Absolute Neutrophils 8.5 H Absolute Lymphocytes 0.6 Absolute Monocytes 0.4 Absolute Eosinophils 0.0 Absolute Basophils 0.0 Sodium 140.6 Potassium 4.7 Chloride 101 Carbon Dioxide 30 Anion Gap 10 BUN 33 H Creatinine 0.91 Est GFR ( Amer) > 60 Est GFR (Non-Af Amer) > 60 Glucose 173 H Calcium 8.9 Impressions: Chest X-Ray 12/28/16 08:18 IMPRESSION: PROBABLE CHRONIC INTERSTITIAL CHANGES. NO OTHER SIGNIFICANT RADIOGRAPHIC FINDING IN THE CHEST. Chest/Abdomen CTA 12/28/16 09:39 IMPRESSION: NORMAL CTA OF THE CHEST. NO PULMONARY EMBOLI. EMPHYSEMATOUS CHANGES WITH CHRONIC SCARRING. NO APPARENT ACUTE FINDINGS. Qualifiers PATEINT BEING DISCHARGED WITH ANY OF THE FOLLOWING DIAGNOSIS?: No Plan Discharge Plan: Patient is discharged home in stable condition. She will follow-up with her primary care doctor in 1-2 weeks. Time Spent: Greater than 30 Minutes
== END 2016-12-30 10:26 | disposition home or self-care (01) | DRG 189 ==
LOC: ER 08:11 → EH 11:42 → UNDOADMIN 11:58 → EH 11:58 → 3S 13:33
PROVIDERS: ADMIT Internal Medicine; ATTEND Internal Medicine
DX: J96.21 Acute and chronic respiratory failure with hypoxia (principal); J44.1 Chronic obstructive pulmonary disease with (acute) exacerbation; I50.32 Chronic diastolic (congestive) heart failure; Z68.41 Body mass index [BMI] 40.0-44.9, adult; I11.0 Hypertensive heart disease with heart failure; E11.9 Type 2 diabetes mellitus without complications; E78.5 Hyperlipidemia, unspecified; K21.9 Gastro-esophageal reflux disease without esophagitis; G47.33 Obstructive sleep apnea (adult) (pediatric); G25.81 Restless legs syndrome; E66.01 Morbid (severe) obesity due to excess calories; Z99.81 Dependence on supplemental oxygen; Z87.891 Personal history of nicotine dependence; Z79.82 Long term (current) use of aspirin; Z79.51 Long term (current) use of inhaled steroids; Z79.899 Other long term (current) drug therapy; Z79.84 Long term (current) use of oral hypoglycemic drugs
CPT/HCPCS: 36415; 71010; 71275; 80048; 80053; 82550; 82803; 82962; 83605; 83690; 83735; 83880; 84484; 85025; 87040; 87070; 87077; 87186; 87205; 93005; 93010; 94640; 94660; 96372; 96374; 99291; J1650; J1815; J2920; J2930; J3490; J7620

== ENCOUNTER 2017-01-12 20:39 | Inpatient (IN) | payer OTHER ==
--- NOTE | 2017-01-12 20:56 | ER Document Report ---
ED Respiratory Problem - General Mode of Arrival: Medic Information source: Patient, Relative - spouse TRAVEL OUTSIDE OF THE [place] IN LAST 30 DAYS: No <TREVER NI - Last Filed: 01/12/17 22:11> <KATHLEEN MELGAR - Last Filed: 01/12/17 23:28> - General Stated Complaint: BREATHING ISSUES Time Seen by Provider: 01/12/17 20:45 Notes: Patient is a 61 year old female presenting to the emergency department for dyspnea. Patient was admitted for COPD exacerbation on 11/27/2016 and again on 12/28/2016. Since patient was discharged on she has had an intermittent cough but has had normal oxygen saturation. Patient's spouse states her O2 sats will drop some with activity which has been happening for many years but tonight her saturation dropped to 62% while she was sitting on the couch. Patient is chronically on 4 L NC at home. Patient is a former smoker since 20 years ago. Patient's PCP is Dr. Marie. Patient sees Dr. Mendiola in Dr. Cardenas 's office for cardiology and she sees Dr. Duque for pulmonlogy. Patient states she is feeling better with BiPAP. Patient has no known allergies. (TREVER NI) - Related Data Allergies/Adverse Reactions: No Known Allergies Allergy (Verified 11/27/16 08:41) Past Medical History - General Information source: Patient - Social History Smoking Status: Former Smoker - Quit 1996 Cigarette use (# per day): No Chew tobacco use (# tins/day): No Smoking Education Provided: No Frequency of alcohol use: None Drug Abuse: None Family History: COPD, DM, Hypertension Patient has suicidal ideation: No Patient has homicidal ideation: No - Past Medical History Cardiac Medical History: Reports: Hx Congestive Heart Failure - Diastolic congestive heart failure, Hx Hypercholesterolemia, Hx Hypertension Pulmonary Medical History: Reports: Hx Asthma, Hx Bronchitis, Hx COPD - Chronically on 4 L per nasal cannula, Hx Sleep Apnea - CPAP Endocrine Medical History: Reports: Hx Diabetes Mellitus Type 2 GI Medical History: Reports: Hx Gastroesophageal Reflux Disease Musculoskeltal Medical History: Reports Hx Arthritis - Osteoporosis Past Surgical History: Reports: Hx Hysterectomy - Immunizations Hx Diphtheria, Pertussis, Tetanus Vaccination: No Hx Pneumococcal Vaccination: 02/04/11 <TREVER NI - Last Filed: 01/12/17 22:11> Review of Systems - Review of Systems Constitutional: No symptoms reported EENT: No symptoms reported Cardiovascular: No symptoms reported Respiratory: See HPI, Cough, Short of breath, Sputum, Wheezing Gastrointestinal: No symptoms reported Genitourinary: No symptoms reported Female Genitourinary: No symptoms reported Musculoskeletal: No symptoms reported Skin: No symptoms reported Hematologic/Lymphatic: No symptoms reported Neurological/Psychological: No symptoms reported -: Yes All other systems reviewed and negative <LASTCHANATREVER - Last Filed: 01/12/17 22:11> Physical Exam - Vital signs Interpretation: Febrile <TREVER NI - Last Filed: 01/12/17 22:11> <KATHLEEN MELGAR - Last Filed: 01/12/17 23:28> - Vital signs Vitals: Temp Pulse Ox 100.3 F 95 01/12/17 20:48 01/12/17 20:48 - Notes Notes: GENERAL: Alert, interacts well. Mild distress. HEAD: Normocephalic, atraumatic. EYES: Appear normal. Pupils equal, round, and reactive to light. ENT: Moist mucus membranes, tongue midline. BiPAP in place. NECK: Full range of motion. Supple. Trachea midline. LUNGS: 93% O2 saturation on BiPAP. Diffuse wheezing which is mostly expiratory. Air entrapment. Retractions. HEART: Regular rate and rhythm. No murmurs, gallops, or rubs. ABDOMEN: Soft, non-tender. Non-distended. Normal bowel sounds. EXTREMITIES: Moves all 4 extremities spontaneously. Normal strength. No edema. NEUROLOGICAL: Alert and oriented x3. Normal speech. No focal neurological deficits. GCS 15. PSYCH: Normal affect, normal mood. SKIN: Warm, dry, normal turgor. No rashes or lesions noted. (TREVER NI) Course - Laboratory Result Diagrams: 01/12/17 21:05 01/12/17 21:05 <LASTCHANATREVER - Last Filed: 01/12/17 22:11> - Laboratory Result Diagrams: 01/12/17 21:05 01/12/17 21:05 - Diagnostic Test Radiology reviewed: Image reviewed, Reports reviewed - Chest x-ray showed COPD with possibly mild interstitial edema - EKG Interpretation by [place] EKG shows normal: Sinus rhythm, [place], Intervals, QRS Complexes, ST-T Waves Rate: Tachycardia - 112 - Consults Dr. Soler Time consulted: 23:20 Consulted provider: will come to ER - Telemetry admission <KATHLEEN MELGAR - Last Filed: 01/12/17 23:28> - Re-evaluation Re-evalutation: 01/12/17 23:27 The patient is doing much better with breathing treatments on BiPAP. Temperature is coming down with the Tylenol she received from EMS. (KATHLEEN MELGRA) - Vital Signs Vital signs: Temp Pulse Resp BP Pulse Ox 100.3 F 20 119/69 94 01/12/17 20:48 01/12/17 22:01 01/12/17 22:01 01/12/17 22:01 - Laboratory Laboratory results interpreted by me: 01/12/17 01/12/17 01/12/17 21:05 21:05 21:05 WBC 13.0 H Hgb 11.9 L MCH 26.8 L MCHC 31.3 L RDW 18.1 H Seg Neutrophils % 88.7 H Lymphocytes % 6.1 L Monocytes % 2.4 L Absolute Neutrophils 11.5 H BUN 23 H Creatinine 1.50 H Est GFR ( Amer) 43 L Est GFR (Non-Af Amer) 35 L Glucose 143 H Direct Bilirubin 0.5 H Creatine Kinase < 20 L Ur Leukocyte Esterase 01/12/17 22:24 WBC Hgb MCH MCHC RDW Seg Neutrophils % Lymphocytes % Monocytes % Absolute Neutrophils BUN Creatinine Est GFR ( Amer) Est GFR (Non-Af Amer) Glucose Direct Bilirubin Creatine Kinase Ur Leukocyte Esterase LARGE H Critical Care Note - Critical Care Note Total time excluding time spent on procedures (mins): 35 <KATHLEEN MELGAR - Last Filed: 01/12/17 23:28> Discharge <TREVER NI - Last Filed: 01/12/17 22:11> - Discharge Admitting Provider: Hospitalist Unit Admitted: Telemetry <KATHLEEN MELGAR - Last Filed: 01/12/17 23:28> - Discharge Clinical Impression: Acute exacerbation of chronic obstructive pulmonary disease (COPD), Morbid obesity with BMI of 40.0-44.9, adult, Acute and chronic respiratory failure with hypoxia Fever Qualifiers: Fever type: unspecified Qualified Code(s): R50.9 - Fever, unspecified Urinary tract infection Qualifiers: Urinary tract infection type: site unspecified Hematuria presence: without hematuria Qualified Code(s): N39.0 - Urinary tract infection, site not specified Leukocytosis Qualifiers: Leukocytosis type: unspecified Qualified Code(s): D72.829 - Elevated white blood cell count, unspecified Condition: Stable Disposition: ADMITTED INPATIENT Scribe Attestation: 01/12/17 23:27 I personally performed the services described in the documentation, reviewed and edited the documentation which was dictated to the scribe in my presence, and it accurately records my words and actions. (KATHLEEN MELGAR) Scribe Documentation - Scribe Written by Scribe:: Nanette Le 01/12/2017 22:10 acting as scribe for :: Uche <TREVER NI - Last Filed: 01/12/17 22:11>
[2017-01-12 21:20] LABS: ABSOLUTE BASOPHILS # (AUTO) 0.2 10^3/uL (0.0-0.2); ABSOLUTE EOSINOPHILS # (AUTO) 0.2 10^3/uL (0.0-0.6); ABSOLUTE LYMPHOCYTES (AUTO) 0.8 10^3/uL (0.5-4.7); ABSOLUTE MONOCYTES (AUTO) 0.3 10^3/uL (0.1-1.4); ABSOLUTE NEUT (AUTO) 11.5 10^3/uL (1.7-8.2); BASOPHILS % (AUTO) 1.4 % (0-2); EOSINOPHILS % (AUTO) 1.4 % (0-6); HEMOGLOBIN 11.9 g/dL (12.0-15.5); HGB HCT DIFFERENCE -2.3; LYMPHOCYTES % (AUTO) 6.1 % (13-45); MEAN CORPUSCULAR HEMOGLOBIN 26.8 pg (27.0-33.4); MEAN CORPUSCULAR HGB CONC 31.3 g/dL (32.0-36.0); MEAN CORPUSCULAR VOLUME 86 fl (80-97); MONOCYTES % (AUTO) 2.4 % (3-13); RED BLOOD COUNT 4.43 10^6/uL (3.72-5.28); RED CELL DISTRIBUTION WIDTH 18.1 % (11.5-14.0); SEGMENTED NEUTROPHILS % (AUTO) 88.7 % (42-78)
--- NOTE | 2017-01-12 21:21 | RADIOLOGY REPORT (SQ) ---
EXAM DESCRIPTION: CHEST SINGLE VIEW COMPLETED DATE/TIME: 01/12/2017 8:53 pm REASON FOR STUDY: difficulty breathing COMPARISON: CT chest 11/01/2015, 12/28/2016 AP chest 11/27/2016, 12/28/2016 EXAM PARAMETERS: NUMBER OF VIEWS: One view. TECHNIQUE: Single frontal radiographic view of the chest acquired. RADIATION DOSE: NA LIMITATIONS: None. FINDINGS: LUNGS AND PLEURA: Lungs are hyperlucent from obstructive disease. There are increased interstitial markings at both bases, interstitial edema versus fibrosis. No dense consolidation worrisome for pneumonia. MEDIASTINUM AND HILAR STRUCTURES: No masses. Contour normal. HEART AND VASCULAR STRUCTURES: Mild cardiomegaly BONES: No acute findings. HARDWARE: None in the chest. OTHER: No other significant finding. IMPRESSION: Obstructive lung disease. Question mild interstitial edema TECHNICAL DOCUMENTATION: JOB ID: [id number]
[2017-01-12 21:25] LABS: VENOUS BLOOD BASE EXCESS 4.2 mmol/L; VENOUS BLOOD HCO3 30.5 mmol/L (20-32); VENOUS BLOOD PCO2 52.8 mmHg (35-63); VENOUS BLOOD PH 7.38 (7.30-7.42)
[2017-01-12 21:27] LABS: PROTHROMBIN TIME 12.6 SEC (11.4-15.4)
[2017-01-12 21:37] LABS: ALANINE AMINOTRANSFERASE 25 U/L (9-52); ALBUMIN 3.7 g/dL (3.5-5.0); ALKALINE PHOSPHATASE 99 U/L (38-126); ANION GAP 10 (5-19); ASPARTATE AMINO TRANSFERASE 18 U/L (14-36); BILIRUBIN,DIRECT 0.5 mg/dL (0.0-0.4); BILIRUBIN,TOTAL 1.1 mg/dL (0.2-1.3); BLOOD UREA NITROGEN 23 mg/dL (7-20); CALCIUM 9.3 mg/dL (8.4-10.2); CARBON DIOXIDE 28 mmol/L (22-30); CHLORIDE 101 mmol/L (98-107); GLUCOSE 143 mg/dL (75-110); POTASSIUM 4.7 mmol/L (3.6-5.0); SODIUM 138.5 mmol/L (137-145); TOTAL PROTEIN 6.5 g/dL (6.3-8.2)
[2017-01-12] MEDS ORDERED: METHYLPREDNISOLONE INJ 125 MG/2 ML SDV IV ONE (21:42)
[2017-01-12] MEDS ORDERED: IPRATROPIUM/ALBUTEROL 0.5-2.5 MG/3 ML AMPUL NEB ONE (21:42)
[2017-01-12] MEDS ORDERED: ALBUTEROL SULFATE 0.083% NEB 2.5 MG/3 ML AMPUL NEB ONE (22:36)
[2017-01-12] MEDS ORDERED: LEVOFLOXACIN 750 MG/D5W RTU 750 MG/150 ML RTUPB IV ONE (22:36)
[2017-01-12 22:37] LABS: ADD ON TESTING BLD IN LAB ACKNOWLEDGE
[2017-01-12 22:49] LABS: MAGNESIUM 1.9 mg/dL (1.6-2.3)
[2017-01-12 22:51] LABS: CREATINE KINASE < 20 U/L (30-135)
[2017-01-12] MEDS ORDERED: DILTIAZEM HCL 120 MG CAP.SR.24H PO ONE (23:00)
[2017-01-12 23:10] LABS: APPEARANCE,URINE CLOUDY; BILIRUBIN,URINE NEGATIVE (NEGATIVE); GLUCOSE, URINE NEGATIVE (NEGATIVE); KETONES,URINE NEGATIVE (NEGATIVE); LEUKOCYTE ESTERASE,URINE LARGE (NEGATIVE); NITRITE,URINE NEGATIVE (NEGATIVE); PROTEIN,URINE NEGATIVE (NEGATIVE); URINE SPECIFIC GRAVITY 1.017; UROBILINOGEN,URINE NEGATIVE mg/dL (<2.0)
[2017-01-12] MEDS ORDERED: GUAIFENESIN SYRP 200 MG/10 ML UDC PO PRN (23:28)
[2017-01-12] MEDS ORDERED: GLUCAGON,HUMAN RECOMB 1 MG INJ IM PRN (23:28)
[2017-01-12] MEDS ORDERED: ACETAMINOPHEN 325 MG TABLET PO PRN (23:28)
[2017-01-12] MEDS ORDERED: DEXTROSE 40% GEL 15 GM TUBE PO PRN ×2 (23:28)
[2017-01-12] MEDS ORDERED: DEXTROSE 50%-WATER 25 GM/50 ML DISP.SYRIN IV PRN ×2 (23:28)
--- NOTE | 2017-01-12 23:29 | EKG REPORT ---
SEVERITY:- OTHERWISE NORMAL ECG - SINUS TACHYCARDIA : Confirmed by: Gonzalo Kunz 12-Jan-2017 23:28:30
[2017-01-13] MEDS: IPRATROPIUM/ALBUTEROL 0.5-2.5 MG/3 ML AMPUL NEB SCH ×4 (04:36→20:05)
[2017-01-13 05:48] LABS: HEMATOCRIT 35.9 % (36.0-47.0); HEMOGLOBIN 11.3 g/dL (12.0-15.5); MEAN CORPUSCULAR HEMOGLOBIN 26.9 pg (27.0-33.4); MEAN CORPUSCULAR HGB CONC 31.4 g/dL (32.0-36.0); MEAN CORPUSCULAR VOLUME 86 fl (80-97); RED BLOOD COUNT 4.19 10^6/uL (3.72-5.28); RED CELL DISTRIBUTION WIDTH 18.1 % (11.5-14.0)
[2017-01-13 05:53] LABS: ANION GAP 7 (5-19); BLOOD UREA NITROGEN 26 mg/dL (7-20); CALCIUM 9.3 mg/dL (8.4-10.2); CARBON DIOXIDE 30 mmol/L (22-30); CHLORIDE 103 mmol/L (98-107); CREATININE RESULT 1.28 mg/dL (0.52-1.25); GLUCOSE 230 mg/dL (75-110); POTASSIUM 4.9 mmol/L (3.6-5.0); SODIUM 140.2 mmol/L (137-145)
--- NOTE | 2017-01-13 05:57 | PDOC H&P ---
History of Present Illness Admission Date/PCP: 01/12/17 23:28 GEO COTE MD Patient complains of: Shortness of breath, fever and cough History of Present Illness: JIMMY SCHRADER is a 61 year old female with a past medical history of COPD, obesity, obstructive sleep apnea and recent hospitalization for COPD exacerbation. He would done well post discharge but 24 hours prior to presentation had facial pain, rhinorrhea, postnasal drip shortness of breath and fever. Prompting evaluation emergency room where she is found to have fever of 103, severe shortness of breath requiring oxygen with BiPAP. Diagnosed with COPD exacerbation, pneumonia and urinalysis suggestive of UTI. Patient is not taken outpatient antibiotics and finished prednisone course within the week. Past Medical History Cardiac Medical History: Reports: Congestive Heart Failure - Diastolic congestive heart failure, Hyperlipidema, Hypertension Denies: Coronary Artery Disease, Myocardial Infarction Pulmonary Medical History: Reports: Asthma, Bronchitis, Chronic Obstructive Pulmonary Disease (COPD) - Chronically on 4 L per nasal cannula, Sleep Apnea - CPAP Denies: Pneumonia Neurological Medical History: Denies: Seizures Endocrine Medical History: Reports: Diabetes Mellitus Type 2 GI Medical History: Reports: Gastroesophageal Reflux Disease Denies: Hepatitis, Hiatal Hernia Musculoskeltal Medical History: Reports: Arthritis - Osteoporosis Psychiatric Medical History: Denies: Depression Hematology: Denies: Anemia, Sickle Cell Disease Past Surgical History Past Surgical History: Reports: Hysterectomy Denies: Amputation, Mastectomy, Pacemaker Social History Information Source: Patient Lives with: Family Smoking Status: Former Smoker Frequency of Alcohol Use: None Hx Recreational Drug Use: No Drugs: None Hx Prescription Drug Abuse: No - Advance Directive Resuscitation Status: Full Code Family History Family History: COPD, DM, Hypertension Parental Family History Reviewed: Yes Children Family History Reviewed: Yes Sibling(s) Family History Reviewed.: Yes Medication/Allergy Home Medications: Albuterol Sulfate [Proair HFA Inhalation Aerosol 8.5 gm MDI] 2 puff IH Q6 Aspirin [Aspirin EC] 81 mg PO DAILY 12/28/16 Atorvastatin Calcium [Lipitor 10 mg Tablet] 10 mg PO QHS 12/28/16 Calcium Carbonate/Vitamin D3 [Calcium 600-Vit D3 200 Tablet] 1 each PO DAILY 06/14 Carvedilol [Coreg 3.125 mg Tablet] 3.125 mg PO Q12 12/28/16 Cetirizine HCl [Zyrtec 5 mg Tablet] 5 mg PO Q12 12/28/16 Diltiazem HCl [Diltiazem 24Hr ER] 120 mg PO DAILY 12/28/16 Fluticasone Propionate [Flonase Nasal Roma 50 Mcg/Roma 16 gm] 1 spray NASL Q12 12/28/16 Furosemide [Lasix 20 mg Tablet] 20 mg PO QAM 12/28/16 Ipratropium/Albuterol Sulfate [Duoneb 3 ml Ampul] 3 ml NEB [id number] PRN 12/28/16 Magnesium Oxide [Mag-Ox 400 mg Tablet] 400 mg PO Q12 12/28/16 Meloxicam [Mobic 7.5 mg Tablet] 7.5 mg PO DAILY 12/28/16 Metformin HCl [Glucophage 500 mg Tablet] 500 mg PO BIDACBS 12/28/16 Montelukast Sodium [Singulair 10 mg Tablet] 10 mg PO QHS 12/28/16 Pantoprazole Sodium [Protonix] 40 mg PO DAILY 12/28/16 Pramipexole Di-HCl [Mirapex 0.25 mg Tablet] 0.25 mg PO QHS 12/28/16 Ramipril [Altace 10 mg Capsule] 10 mg PO DAILY 12/28/16 Umeclidinium Brm/Vilanterol Tr [Anoro Ellipta 62.5-25 Mcg INH] 1 each IH DAILY 01/13/17 Allergies/Adverse Reactions: No Known Allergies Allergy (Verified 11/27/16 08:41) Review of Systems Constitutional: PRESENT: chills, fatigue, fever(s), headache(s) Eyes: ABSENT: visual disturbances Ears: ABSENT: hearing changes Nose, Mouth, and Throat: PRESENT: as per HPI, other - Rhinorrhea Cardiovascular: ABSENT: chest pain, dyspnea on exertion, edema, orthropnea, palpitations Respiratory: PRESENT: cough, dyspnea. ABSENT: hemoptysis, sputum Gastrointestinal: ABSENT: abdominal pain, constipation, diarrhea, hematemesis, hematochezia, nausea, vomiting Genitourinary: ABSENT: dysuria, hematuria Musculoskeletal: ABSENT: joint swelling Integumentary: ABSENT: rash, wounds Neurological: ABSENT: abnormal gait, abnormal speech, confusion, dizziness, focal weakness, syncope Psychiatric: ABSENT: anxiety, depression, homidical ideation, suicidal ideation Endocrine: ABSENT: cold intolerance, heat intolerance, polydipsia, polyuria Hematologic/Lymphatic: ABSENT: easy bleeding, easy bruising Physical Exam Vital Signs: Temp Pulse Resp BP Pulse Ox 97.4 F 81 19 91/54 L 96 01/13/17 03:32 01/13/17 03:42 01/13/17 03:32 01/13/17 03:32 01/13/17 03:32 Intake & Output 01/11/17 01/12/17 01/13/17 11:59 11:59 11:59 Weight 105.4 kg General appearance: PRESENT: cooperative, morbidly obese, severe distress Head exam: PRESENT: atraumatic, normocephalic Eye exam: PRESENT: conjunctiva pink, EOMI, PERRLA. ABSENT: scleral icterus Ear exam: PRESENT: normal external ear exam Mouth exam: PRESENT: moist, tongue midline Neck exam: ABSENT: carotid bruit, JVD, lymphadenopathy, thyromegaly Respiratory exam: PRESENT: accessory muscle use, crackles, prolonged expiratory phas, rales, rhonchi, symmetrical, tachypnea. ABSENT: stridor, wheezes Cardiovascular exam: PRESENT: RRR, +S1, +S2, tachycardia Pulses: PRESENT: normal dorsalis pedis pul Vascular exam: PRESENT: normal capillary refill GI/Abdominal exam: PRESENT: normal bowel sounds, soft. ABSENT: distended, guarding, mass, organolmegaly, rebound, tenderness Rectal exam: PRESENT: deferred Extremities exam: PRESENT: full ROM. ABSENT: calf tenderness, clubbing, pedal edema Neurological exam: PRESENT: alert, awake, oriented to person, oriented to place , oriented to time, oriented to situation, CN II-XII grossly intact. ABSENT: motor sensory deficit Psychiatric exam: PRESENT: appropriate affect, normal mood. ABSENT: homicidal ideation, suicidal ideation Skin exam: PRESENT: dry, intact, warm. ABSENT: cyanosis, rash Results Impressions: Chest X-Ray 01/12/17 20:41 IMPRESSION: Obstructive lung disease. Question mild interstitial edema Assessment & Plan - Diagnosis (1) Pneumonia Is this a current diagnosis for this admission?: Yes Plan: Recent hospitalization, vancomycin and Levaquin ordered with pneumonia care set , follow-up blood culture, CBC consider additional imaging (2) Sinusitis Is this a current diagnosis for this admission?: Yes Plan: Flonase, chlorpheniramine and empiric antibiotics (3) Acute and chronic respiratory failure with hypoxia Is this a current diagnosis for this admission?: Yes Plan: Supplemental oxygen, BiPAP, flutter valve, incentive spirometry. (4) UTI (urinary tract infection) Qualifiers: Urinary tract infection type: site unspecified Hematuria presence: without hematuria Qualified Code(s): N39.0 - Urinary tract infection, site not specified Is this a current diagnosis for this admission?: Yes Plan: Empiric antibiotics follow-up CBC, blood and urine culture (5) Morbid obesity with BMI of 40.0-44.9, adult Is this a current diagnosis for this admission?: Yes Plan: Consider dietitian consultation (6) Obstructive sleep apnea on CPAP Is this a current diagnosis for this admission?: Yes Plan: BiPAP - Time Time Spent: 50 to 70 Minutes - Inpatient Certification Medical Necessity: Need Close Monitoring Due to Risk of Patient Decompensation
[2017-01-13] MEDS ORDERED: VANCOMYCIN HCL 1,500 MG in DEXTROSE 5%-WATER 250 ML IV ONE (05:58)
[2017-01-13] MEDS ORDERED: VANCOMYCIN HCL 0 MG in DEXTROSE 5%-WATER 250 ML IV NR (06:00)
[2017-01-13] MEDS ORDERED: VANCOMYCIN HCL INJ 1000 MG VIAL IV PRN (06:10)
[2017-01-13] MEDS ORDERED: HYDROCORTISONE SOD SUCCINATE INJ/PF 100 MG/2 ML SDV ONE (06:11)
[2017-01-13] MEDS: NORMAL SALINE 1000 ML 1,000 ML IV SCH ×2 (06:14→08:18)
[2017-01-13] MEDS ORDERED: VANCOMYCIN HCL INJ 1000 MG VIAL ONE (06:22)
[2017-01-13 06:24] LABS: BAND NEUTROPHILS % (MANUAL) 3 % (3-5); BASOPHILS % (MANUAL) 0 % (0-2); EOSINOPHILS % (MANUAL) 0 % (0-6); LYMPHOCYTES % (MANUAL) 6 % (13-45); TOTAL CELLS COUNTED 100
[2017-01-13 06:25] LABS: ANISOCYTOSIS 1+; HYPOCHROMASIA SLIGHT; OVALOCYTES SLIGHT; POIKILOCYTOSIS SLIGHT; POLYCHROMASIA SLIGHT; TOXIC GRANULATION SLIGHT
[2017-01-13] MEDS: HEPARIN SOD (PORCINE) 5,000 UNIT/ML 1 ML SYRINGE SUBCUT SCH ×3 (06:57→21:35)
[2017-01-13] MEDS: INSULIN LISPRO 100 UNIT/ML 3 ML VIAL SUBCUT PRN ×3 (08:23→16:01)
[2017-01-13] MEDS: METFORMIN HCL 500 MG TABLET PO SCH ×2 (08:23→15:33)
[2017-01-13] MEDS: MAGNESIUM OXIDE 400 MG TABLET PO SCH (09:24)
[2017-01-13] MEDS: SULFAMETHOXAZOLE/TRIMETHOPRIM 800-160 MG TABLET PO SCH ×2 (09:24→17:57)
[2017-01-13] MEDS: FLUTICASONE NASAL SPRAY 50 MCG/SPRY 120 SPRAY/16 GM NASL SCH ×2 (09:29→21:35)
--- NOTE | 2017-01-13 09:47 | PDOC PROGRESS REPORT ---
Subjective Progress Note for:: 01/13/17 Subjective:: Complains of a productive cough. Physical Exam Vital Signs: Temp Pulse Resp BP Pulse Ox 97.4 F 86 24 H 102/68 94 01/13/17 03:32 01/13/17 08:29 01/13/17 08:29 01/13/17 06:37 01/13/17 08:29 Intake & Output 01/12/17 01/13/17 01/14/17 06:59 06:59 06:59 Intake Total 740 Balance 740 Weight 105.4 kg General appearance: PRESENT: no acute distress Eye exam: PRESENT: conjunctiva pink. ABSENT: scleral icterus Mouth exam: PRESENT: moist, tongue midline Neck exam: ABSENT: JVD Respiratory exam: PRESENT: rhonchi, wheezes. ABSENT: rales Cardiovascular exam: PRESENT: RRR. ABSENT: diastolic murmur, rubs, systolic murmur GI/Abdominal exam: PRESENT: normal bowel sounds, soft. ABSENT: distended, guarding, mass, organolmegaly, rebound, tenderness Extremities exam: ABSENT: calf tenderness, clubbing, pedal edema Neurological exam: PRESENT: alert, awake, oriented to person, oriented to place , oriented to time, oriented to situation, CN II-XII grossly intact. ABSENT: motor sensory deficit Psychiatric exam: PRESENT: appropriate affect Skin exam: PRESENT: dry, intact, warm. ABSENT: cyanosis, rash Results Laboratory Results: 01/13/17 05:07 01/13/17 05:07 01/13/17 01/13/17 05:07 05:07 WBC 21.0 H RBC 4.19 Hgb 11.3 L Hct 35.9 L MCV 86 MCH 26.9 L MCHC 31.4 L RDW 18.1 H Plt Count 225 Seg Neutrophils % Not Reportable Lymphocytes % Not Reportable Monocytes % Not Reportable Eosinophils % Not Reportable Basophils % Not Reportable Absolute Neutrophils Not Reportable Absolute Lymphocytes Not Reportable Absolute Monocytes Not Reportable Absolute Eosinophils Not Reportable Absolute Basophils Not Reportable Sodium 140.2 Potassium 4.9 Chloride 103 Carbon Dioxide 30 Anion Gap 7 BUN 26 H Creatinine 1.28 H Est GFR ( Amer) 51 L Est GFR (Non-Af Amer) 42 L Glucose 230 H Calcium 9.3 Impressions: Chest X-Ray 01/12/17 20:41 IMPRESSION: Obstructive lung disease. Question mild interstitial edema Assessment & Plan - Diagnosis (1) Sepsis Is this a current diagnosis for this admission?: Yes Plan: The patient had hypotension last night that responded IV fluids. The patient has probable early pneumonia along with a urinary tract infection. The patient was started on vancomycin and Levaquin. Will DC the vancomycin and continue with Levaquin. During her last hospitalization she grew out stenotrophomonas that was resistant to many antibiotics. Because of this we will add on oral Bactrim. We will continue with the Levaquin. (2) Acute and chronic respiratory failure with hypoxia Is this a current diagnosis for this admission?: Yes Plan: Secondary to pneumonia and COPD exacerbation. (3) Pneumonia Is this a current diagnosis for this admission?: Yes Plan: Patient does not have an obvious infiltrate on chest x-ray however clinically she has a left basilar pneumonia. Will treat with Levaquin. Patient was hospitalized several weeks ago however the vancomycin stopped for now. We may add that on if she does not show improvement. (4) Acute exacerbation of chronic obstructive pulmonary disease (COPD) Is this a current diagnosis for this admission?: Yes Plan: We will continue with nebulizers, oxygen, IV steroids and antibiotics. (5) UTI (urinary tract infection) Qualifiers: Urinary tract infection type: site unspecified Hematuria presence: without hematuria Qualified Code(s): N39.0 - Urinary tract infection, site not specified Is this a current diagnosis for this admission?: Yes Plan: Continue with Levaquin. (6) Morbid obesity with BMI of 40.0-44.9, adult Is this a current diagnosis for this admission?: Yes (7) Congestive heart failure Is this a current diagnosis for this admission?: Yes Plan: Patient has chronic diastolic dysfunction. She received IV fluids last night because of hypotension. Will need to watch closely giving her IV fluids because of her history of congestive heart failure. (8) Gastroesophageal reflux disease Is this a current diagnosis for this admission?: Yes (9) Hyperlipidemia Is this a current diagnosis for this admission?: Yes (10) Hypertension Is this a current diagnosis for this admission?: Yes Plan: We will hold antihypertensives given that her blood pressures been low with the sepsis. (11) Obstructive sleep apnea on CPAP Is this a current diagnosis for this admission?: Yes Plan: Continue with CPAP. (12) Restless leg syndrome Is this a current diagnosis for this admission?: Yes - Time Time Spent with patient: 25-34 minutes - Inpatient Certification Medical Necessity: Need for IV Antibiotics
[2017-01-13] MEDS ORDERED: CARVEDILOL 3.125 MG TABLET PO SCH (10:00)
[2017-01-13] MEDS ORDERED: GUAIFENESIN 600 MG TABLET.SA PO SCH (10:00)
[2017-01-13] MEDS ORDERED: RAMIPRIL 10 MG CAPSULE PO SCH (10:00)
[2017-01-13] MEDS ORDERED: ASPIRIN 81 MG TABLET, ENT COATED PO SCH (10:00)
[2017-01-13] MEDS ORDERED: DILTIAZEM HCL 120 MG CAP.SR.24H PO SCH (10:00)
[2017-01-13] MEDS ORDERED: PREDNISONE 10 MG TABLET PO SCH (10:00)
[2017-01-13] MEDS: HYDROCORTISONE SOD SUCCINATE INJ/PF 100 MG/2 ML SDV IV SCH ×2 (14:08→21:35)
[2017-01-13] MEDS: ATORVASTATIN CALCIUM 10 MG TABLET PO SCH (21:36)
[2017-01-13] MEDS: GUAIFENESIN 600 MG TABLET.SA PO SCH (21:36)
[2017-01-13] MEDS: MONTELUKAST SODIUM 10 MG TABLET PO SCH (21:36)
[2017-01-13] MEDS ORDERED: LEVOFLOXACIN 750 MG/D5W RTU 750 MG/150 ML RTUPB IV SCH (22:00)
[2017-01-13] MEDS ORDERED: PRAMIPEXOLE DI-HCL 0.25 MG TABLET ONE (22:27)
[2017-01-13] MEDS: PRAMIPEXOLE DI-HCL 0.25 MG TABLET PO SCH (22:38)
[2017-01-14] MEDS: IPRATROPIUM/ALBUTEROL 0.5-2.5 MG/3 ML AMPUL NEB SCH ×4 (02:05→20:10)
[2017-01-14 04:57] LABS: HEMATOCRIT 31.3 % (36.0-47.0); HEMOGLOBIN 9.9 g/dL (12.0-15.5); HGB HCT DIFFERENCE -1.6; MEAN CORPUSCULAR HEMOGLOBIN 26.9 pg (27.0-33.4); MEAN CORPUSCULAR HGB CONC 31.6 g/dL (32.0-36.0); MEAN CORPUSCULAR VOLUME 85 fl (80-97); RED BLOOD COUNT 3.68 10^6/uL (3.72-5.28); RED CELL DISTRIBUTION WIDTH 18.1 % (11.5-14.0); WHITE BLOOD COUNT 14.8 10^3/uL (4.0-10.5)
[2017-01-14 05:02] LABS: ANION GAP 6 (5-19); BLOOD UREA NITROGEN 24 mg/dL (7-20); CALCIUM 9.1 mg/dL (8.4-10.2); CARBON DIOXIDE 30 mmol/L (22-30); CHLORIDE 106 mmol/L (98-107); CREATININE RESULT 1.03 mg/dL (0.52-1.25); GLUCOSE 214 mg/dL (75-110); SODIUM 142.2 mmol/L (137-145)
[2017-01-14 06:04] LABS: BAND NEUTROPHILS % (MANUAL) 3 % (3-5); BASOPHILS % (MANUAL) 0 % (0-2); EOSINOPHILS % (MANUAL) 0 % (0-6); LYMPHOCYTES % (MANUAL) 7 % (13-45); TOTAL CELLS COUNTED 100; TOXIC VACUOLATION PRESENT
[2017-01-14 06:05] LABS: ANISOCYTOSIS 2+
[2017-01-14] MEDS: HEPARIN SOD (PORCINE) 5,000 UNIT/ML 1 ML SYRINGE SUBCUT SCH ×3 (06:14→21:32)
[2017-01-14] MEDS: HYDROCORTISONE SOD SUCCINATE INJ/PF 100 MG/2 ML SDV IV SCH ×3 (06:14→21:32)
[2017-01-14] MEDS: INSULIN LISPRO 100 UNIT/ML 3 ML VIAL SUBCUT PRN ×3 (09:02→16:37)
[2017-01-14] MEDS: FLUTICASONE NASAL SPRAY 50 MCG/SPRY 120 SPRAY/16 GM NASL SCH ×2 (09:44→21:31)
[2017-01-14] MEDS: MAGNESIUM OXIDE 400 MG TABLET PO SCH (09:45)
[2017-01-14] MEDS: METFORMIN HCL 500 MG TABLET PO SCH ×2 (09:45→15:25)
[2017-01-14] MEDS: ASPIRIN 81 MG TABLET, ENT COATED PO SCH (09:45)
[2017-01-14] MEDS: SULFAMETHOXAZOLE/TRIMETHOPRIM 800-160 MG TABLET PO SCH ×2 (09:45→18:18)
[2017-01-14] MEDS: GUAIFENESIN 600 MG TABLET.SA PO SCH ×2 (09:45→21:31)
--- NOTE | 2017-01-14 11:07 | PDOC PROGRESS REPORT ---
Subjective Progress Note for:: 01/14/17 Subjective:: Patient is feeling better slightly. No PND orthopnea. No chest pain. No chills fever nor diarrhea. No abdominal pain nausea or vomiting. Patient able to ambulate now until to the restroom. Physical Exam Vital Signs: Temp Pulse Resp BP Pulse Ox 97.5 F 84 17 109/67 96 01/14/17 04:41 01/14/17 08:10 01/14/17 08:10 01/14/17 04:41 01/14/17 08:10 Intake & Output 01/13/17 01/14/17 01/15/17 06:59 06:59 06:59 Intake Total 740 3785 Output Total 200 Balance 740 3585 Weight 105.4 kg 105.4 kg General appearance: PRESENT: no acute distress, morbidly obese Head exam: PRESENT: normocephalic Eye exam: PRESENT: EOMI Mouth exam: PRESENT: moist, neck supple Neck exam: ABSENT: JVD Respiratory exam: PRESENT: clear to auscultation alysia - Anteriorly bilateral, wheezes - Mild wheezing posteriorly bilateral Cardiovascular exam: PRESENT: RRR. ABSENT: gallop GI/Abdominal exam: PRESENT: hypoactive bowel sounds, soft. ABSENT: distended - Obese Extremities exam: ABSENT: pedal edema Neurological exam: PRESENT: alert, awake, oriented to situation Skin exam: PRESENT: dry, warm. ABSENT: cyanosis Results Laboratory Results: 01/14/17 03:57 01/14/17 03:57 01/14/17 01/14/17 03:57 03:57 WBC 14.8 H RBC 3.68 L Hgb 9.9 L Hct 31.3 L MCV 85 MCH 26.9 L MCHC 31.6 L RDW 18.1 H Plt Count 226 Seg Neutrophils % Not Reportable Lymphocytes % Not Reportable Monocytes % Not Reportable Eosinophils % Not Reportable Basophils % Not Reportable Absolute Neutrophils Not Reportable Absolute Lymphocytes Not Reportable Absolute Monocytes Not Reportable Absolute Eosinophils Not Reportable Absolute Basophils Not Reportable Sodium 142.2 Potassium 5.0 Chloride 106 Carbon Dioxide 30 Anion Gap 6 BUN 24 H Creatinine 1.03 Est GFR ( Amer) > 60 Est GFR (Non-Af Amer) 54 L Glucose 214 H Calcium 9.1 Impressions: Chest X-Ray 01/12/17 20:41 IMPRESSION: Obstructive lung disease. Question mild interstitial edema Assessment & Plan - Diagnosis (1) Acute and chronic respiratory failure with hypoxia Is this a current diagnosis for this admission?: Yes (2) Acute exacerbation of chronic obstructive pulmonary disease (COPD) Is this a current diagnosis for this admission?: Yes (3) Pneumonia Is this a current diagnosis for this admission?: Yes (4) Diastolic heart failure Qualifiers: Heart failure chronicity: chronic Qualified Code(s): I50.32 - Chronic diastolic (congestive) heart failure Is this a current diagnosis for this admission?: Yes (5) UTI (urinary tract infection) Qualifiers: Urinary tract infection type: site unspecified Hematuria presence: without hematuria Qualified Code(s): N39.0 - Urinary tract infection, site not specified Is this a current diagnosis for this admission?: Yes (6) Congestive heart failure Qualifiers: Congestive heart failure type: diastolic Congestive heart failure chronicity: chronic Qualified Code(s): I50.32 - Chronic diastolic (congestive ) heart failure Is this a current diagnosis for this admission?: Yes (7) Gastroesophageal reflux disease Qualifiers: Esophagitis presence: without esophagitis Qualified Code(s): K21.9 - Gastro -esophageal reflux disease without esophagitis Is this a current diagnosis for this admission?: Yes (8) Hyperlipidemia Qualifiers: Hyperlipidemia type: unspecified Qualified Code(s): E78.5 - Hyperlipidemia , unspecified Is this a current diagnosis for this admission?: Yes (9) Hypertension Qualifiers: Hypertension type: essential hypertension Qualified Code(s): I10 - Essential (primary) hypertension Is this a current diagnosis for this admission?: Yes (10) Obstructive sleep apnea on CPAP Is this a current diagnosis for this admission?: Yes (11) Morbid obesity with BMI of 40.0-44.9, adult Is this a current diagnosis for this admission?: Yes - Time Time Spent with patient: 25-34 minutes - Plan Summary Plan Summary: We will continue antibiotics. In the meantime we will increase prednisone and begin intravenous diuretic with Lasix. We will likewise resume her Coreg. We will monitor blood pressure and if tolerated will resume MOHAN inhibitor as well.
[2017-01-14] MEDS: PRAMIPEXOLE DI-HCL 0.25 MG TABLET PO SCH (21:31)
[2017-01-14] MEDS: ATORVASTATIN CALCIUM 10 MG TABLET PO SCH (21:31)
[2017-01-14] MEDS: CARVEDILOL 3.125 MG TABLET PO SCH (21:31)
[2017-01-14] MEDS: MONTELUKAST SODIUM 10 MG TABLET PO SCH (21:33)
[2017-01-14] MEDS ORDERED: LEVOFLOXACIN 750 MG TABLET PO SCH (22:00)
[2017-01-15] MEDS: IPRATROPIUM/ALBUTEROL 0.5-2.5 MG/3 ML AMPUL NEB SCH ×4 (02:27→20:09)
[2017-01-15] MEDS: HEPARIN SOD (PORCINE) 5,000 UNIT/ML 1 ML SYRINGE SUBCUT SCH ×3 (06:04→21:27)
[2017-01-15] MEDS: HYDROCORTISONE SOD SUCCINATE INJ/PF 100 MG/2 ML SDV IV SCH (06:04)
[2017-01-15] MEDS: METFORMIN HCL 500 MG TABLET PO SCH ×2 (08:14→17:57)
--- NOTE | 2017-01-15 10:19 | PDOC PROGRESS REPORT ---
Subjective Progress Note for:: 01/15/17 Subjective:: Feeling much better today than yesterday. Wheezing improved. No chills or fever nor diarrhea. No nausea or vomiting. Still oxygen saturation drops on ambulation. Oral intake is good. Physical Exam Vital Signs: Temp Pulse Resp BP Pulse Ox 97.6 F 88 24 H 115/58 L 96 01/15/17 05:01 01/15/17 08:30 01/15/17 08:30 01/15/17 05:01 01/15/17 08:30 Intake & Output 01/14/17 01/15/17 01/16/17 06:59 06:59 06:59 Intake Total 3785 2410 Output Total 200 Balance 3585 2410 Weight 105.4 kg 105.4 kg General appearance: PRESENT: no acute distress, cooperative, morbidly obese Head exam: PRESENT: normocephalic Eye exam: PRESENT: EOMI Mouth exam: PRESENT: moist, neck supple Neck exam: ABSENT: JVD Respiratory exam: PRESENT: clear to auscultation alysia - Anteriorly, wheezes - Minimal and occasional posteriorly improved compared to yesterday. ABSENT: rhonchi Cardiovascular exam: PRESENT: RRR. ABSENT: gallop GI/Abdominal exam: PRESENT: soft. ABSENT: distended, tenderness Extremities exam: ABSENT: pedal edema Neurological exam: PRESENT: alert, awake, oriented to situation Skin exam: PRESENT: dry, warm. ABSENT: cyanosis Results Laboratory Results: 01/14/17 03:57 01/14/17 03:57 Impressions: Chest X-Ray 01/12/17 20:41 IMPRESSION: Obstructive lung disease. Question mild interstitial edema Assessment & Plan - Diagnosis (1) Acute and chronic respiratory failure with hypoxia Is this a current diagnosis for this admission?: Yes (2) Acute exacerbation of chronic obstructive pulmonary disease (COPD) Is this a current diagnosis for this admission?: Yes (3) Pneumonia Is this a current diagnosis for this admission?: Yes (4) Diastolic heart failure Qualifiers: Heart failure chronicity: chronic Qualified Code(s): I50.32 - Chronic diastolic (congestive) heart failure Is this a current diagnosis for this admission?: Yes (5) UTI (urinary tract infection) Qualifiers: Urinary tract infection type: site unspecified Hematuria presence: without hematuria Qualified Code(s): N39.0 - Urinary tract infection, site not specified Is this a current diagnosis for this admission?: Yes (6) Congestive heart failure Qualifiers: Congestive heart failure type: diastolic Congestive heart failure chronicity: chronic Qualified Code(s): I50.32 - Chronic diastolic (congestive ) heart failure Is this a current diagnosis for this admission?: Yes (7) Gastroesophageal reflux disease Qualifiers: Esophagitis presence: without esophagitis Qualified Code(s): K21.9 - Gastro -esophageal reflux disease without esophagitis Is this a current diagnosis for this admission?: Yes (8) Hyperlipidemia Qualifiers: Hyperlipidemia type: unspecified Qualified Code(s): E78.5 - Hyperlipidemia , unspecified Is this a current diagnosis for this admission?: Yes (9) Hypertension Qualifiers: Hypertension type: essential hypertension Qualified Code(s): I10 - Essential (primary) hypertension Is this a current diagnosis for this admission?: Yes (10) Obstructive sleep apnea on CPAP Is this a current diagnosis for this admission?: Yes (11) Morbid obesity with BMI of 40.0-44.9, adult Is this a current diagnosis for this admission?: Yes - Time Time Spent with patient: 25-34 minutes - Plan Summary Plan Summary: Continue prednisone. Continue hydrocortisone. Patient responded to IV diuretics. We will continue it for now. Urine culture resistant to Levaquin. We will discontinue Levaquin and keep her on Bactrim double strength. Begin physical therapy.
[2017-01-15] MEDS: SULFAMETHOXAZOLE/TRIMETHOPRIM 800-160 MG TABLET PO SCH ×2 (10:32→17:58)
[2017-01-15] MEDS: ASPIRIN 81 MG TABLET, ENT COATED PO SCH (10:32)
[2017-01-15] MEDS: PREDNISONE 20 MG TABLET PO SCH (10:32)
[2017-01-15] MEDS: MAGNESIUM OXIDE 400 MG TABLET PO SCH (10:32)
[2017-01-15] MEDS: FLUTICASONE NASAL SPRAY 50 MCG/SPRY 120 SPRAY/16 GM NASL SCH ×2 (10:32→21:27)
[2017-01-15] MEDS: CARVEDILOL 3.125 MG TABLET PO SCH ×2 (10:33→21:27)
[2017-01-15] MEDS: FUROSEMIDE INJ/PF 40 MG/4 ML SDV IV SCH (10:33)
[2017-01-15] MEDS: GUAIFENESIN 600 MG TABLET.SA PO SCH ×2 (10:33→21:27)
[2017-01-15] MEDS: INSULIN LISPRO 100 UNIT/ML 3 ML VIAL SUBCUT PRN (17:58)
[2017-01-15] MEDS: ATORVASTATIN CALCIUM 10 MG TABLET PO SCH (21:27)
[2017-01-15] MEDS: PRAMIPEXOLE DI-HCL 0.25 MG TABLET PO SCH (21:27)
[2017-01-15] MEDS ORDERED: MONTELUKAST SODIUM 10 MG TABLET PO SCH (22:00)
[2017-01-16] MEDS: IPRATROPIUM/ALBUTEROL 0.5-2.5 MG/3 ML AMPUL NEB SCH ×2 (02:39→08:25)
[2017-01-16 05:16] LABS: HEMATOCRIT 32.1 % (36.0-47.0); HEMOGLOBIN 10.5 g/dL (12.0-15.5); HGB HCT DIFFERENCE -0.6; MEAN CORPUSCULAR HEMOGLOBIN 27.7 pg (27.0-33.4); MEAN CORPUSCULAR HGB CONC 32.7 g/dL (32.0-36.0); MEAN CORPUSCULAR VOLUME 85 fl (80-97); RED BLOOD COUNT 3.78 10^6/uL (3.72-5.28); RED CELL DISTRIBUTION WIDTH 18.5 % (11.5-14.0); WHITE BLOOD COUNT 9.4 10^3/uL (4.0-10.5)
[2017-01-16] MEDS: HEPARIN SOD (PORCINE) 5,000 UNIT/ML 1 ML SYRINGE SUBCUT SCH (06:08)
[2017-01-16] MEDS ORDERED: VALACYCLOVIR HCL 500 MG TABLET PO ONE (10:00)
[2017-01-16] MEDS: METFORMIN HCL 500 MG TABLET PO SCH (10:13)
[2017-01-16] MEDS: ASPIRIN 81 MG TABLET, ENT COATED PO SCH (10:13)
[2017-01-16] MEDS: FLUTICASONE NASAL SPRAY 50 MCG/SPRY 120 SPRAY/16 GM NASL SCH (10:14)
[2017-01-16] MEDS: FUROSEMIDE INJ/PF 40 MG/4 ML SDV IV SCH (10:14)
[2017-01-16] MEDS: GUAIFENESIN 600 MG TABLET.SA PO SCH (10:14)
[2017-01-16] MEDS: MAGNESIUM OXIDE 400 MG TABLET PO SCH (10:14)
[2017-01-16] MEDS: SULFAMETHOXAZOLE/TRIMETHOPRIM 800-160 MG TABLET PO SCH (10:14)
[2017-01-16] MEDS: PREDNISONE 20 MG TABLET PO SCH (10:14)
[2017-01-16] MEDS: CARVEDILOL 3.125 MG TABLET PO SCH (10:14)
--- NOTE | 2017-01-16 11:42 | PDOC DISCHARGE SUMMARY ---
General - Admit/Disc Date/PCP Admission Date/Primary Care Provider: 01/12/17 23:28 GEO COTE MD Discharge Date: 01/16/17 - Discharge Diagnosis (1) Acute and chronic respiratory failure with hypoxia Is this a current diagnosis for this admission?: Yes (2) Acute exacerbation of chronic obstructive pulmonary disease (COPD) Is this a current diagnosis for this admission?: Yes (3) Pneumonia Is this a current diagnosis for this admission?: Yes (4) Diastolic heart failure Is this a current diagnosis for this admission?: Yes (5) UTI (urinary tract infection) Is this a current diagnosis for this admission?: Yes (6) Congestive heart failure Is this a current diagnosis for this admission?: Yes (7) Gastroesophageal reflux disease Is this a current diagnosis for this admission?: Yes (8) Hyperlipidemia Is this a current diagnosis for this admission?: Yes (9) Hypertension Is this a current diagnosis for this admission?: Yes (10) Obstructive sleep apnea on CPAP Is this a current diagnosis for this admission?: Yes (11) Morbid obesity with BMI of 40.0-44.9, adult Is this a current diagnosis for this admission?: Yes - Additional Information Resuscitation Status: Full Code Discharge Diet: Cardiac - Low-fat low-salt, Diabetic - No concentrated sweets Discharge Activity: Activity As Tolerated, Balance Activity w/Rest, Slowly Increase Activity Home Medications: Albuterol Sulfate [Proair HFA Inhalation Aerosol 8.5 gm MDI] 2 puff IH Q6 Albuterol Sulfate [Ventolin 0.083% Neb 2.5 mg/3 mL Ampul] 3 ml NEB Q4HP PRN Aspirin [Ecotrin 81 mg EC Tablet] 81 mg PO DAILY 01/13/17 Atorvastatin Calcium [Lipitor 10 mg Tablet] 10 mg PO QHS 01/13/17 Carvedilol [Coreg 3.125 mg Tablet] 3.125 mg PO Q12 01/13/17 Cetirizine HCl [Zyrtec 5 mg Tablet] 5 mg PO BID 01/13/17 Diltiazem HCl [Diltiazem 24Hr ER] 120 mg PO DAILY 01/13/17 Fluticasone Propionate [Flonase Nasal [place] 50 Mcg/[place] 16 gm] 1 spray NASL BID 01/13/17 Furosemide [Lasix 20 mg Tablet] 20 mg PO DAILYP PRN 01/13/17 Magnesium Oxide [Mag-Ox 400 mg Tablet] 400 mg PO Q12 01/13/17 Metformin HCl [Glucophage 500 mg Tablet] 500 mg PO BID 01/13/17 Montelukast Sodium [Singulair 10 mg Tablet] 10 mg PO QHS 01/13/17 Pantoprazole Sodium [Protonix] 40 mg PO DAILY 01/13/17 Pramipexole Di-HCl [Pramipexole Dihydrochloride] 0.25 mg PO QHS 01/13/17 Ramipril [Altace 10 mg Capsule] 10 mg PO DAILY 01/13/17 Umeclidinium Brm/Vilanterol Tr [Anoro Ellipta 62.5-25 Mcg INH] 1 puff IH DAILY 01/13/17 Prednisone [Sterapred Ds] 1 pkg PO ASDIR PRN 12 Days tab.ds.pk 01/16/17 Sulfamethoxazole/Trimethoprim [Septra-Ds 800-160 mg Tablet] 1 tab PO BID #20 tablet 01/16/17 Valacyclovir HCl [Valtrex] 2,000 mg PO HSP #2 tablet 01/16/17 Additional Information: Return to ER if symptoms recur History of Present Illness Patient complains of: Shortness of breath History of Present Illness: JIMMY SCHRADER is a 61 year old female with a past medical history of COPD, obesity, obstructive sleep apnea and recent hospitalization for COPD exacerbation. He would done well post discharge but 24 hours prior to presentation had facial pain, rhinorrhea, postnasal drip shortness of breath and fever. Prompting evaluation emergency room where she is found to have fever of 103, severe shortness of breath requiring oxygen with BiPAP. Diagnosed with COPD exacerbation, pneumonia and urinalysis suggestive of UTI. Patient is not taken outpatient antibiotics and finished prednisone course within the week. For details please refer to history and physical examination performed by the admitting physician. Hospital Course Hospital Course: The patient was admitted to telemetry. Patient was started on intravenous steroids as well as [id number] nebulizer. Antibiotics was likewise started for clinical pneumonia. Patient had an abnormal urinalysis which did reveal E. coli resistant to quinolones. The patient was placed on Bactrim at the beginning and was maintained on Bactrim. He was on quinolone and this was discontinued. Patient was likewise placed on intravenous Lasix likely for fluid overload. Patient had bouts of steroid at home prior to admission as reported. The patient improved, physical therapy was begun. Her course was also noted for cold sore where she was given Valtrex. The rest of the hospital stays unremarkable. Patient was eventually discharged home improved with instructions to slowly increase activity until recovery and return to the emergency room if symptoms worsens. Physical Exam Vital Signs: Temp Pulse Resp BP Pulse Ox 97.9 F 87 16 111/47 L 95 01/16/17 08:43 01/16/17 08:43 01/16/17 08:43 01/16/17 08:43 01/16/17 08:43 Intake & Output 01/15/17 01/16/17 01/17/17 06:59 06:59 06:59 Intake Total 2410 3720 Output Total 2800 Balance 2410 920 Weight 105.4 kg 105.4 kg General appearance: PRESENT: no acute distress, cooperative, morbidly obese Eye exam: PRESENT: conjunctiva pink Neck exam: ABSENT: JVD Respiratory exam: PRESENT: clear to auscultation alysia - Anteriorly, decreased breath sounds - Posteriorly Cardiovascular exam: PRESENT: RRR. ABSENT: gallop GI/Abdominal exam: PRESENT: soft. ABSENT: distended - Obese, tenderness Extremities exam: PRESENT: other - Trace pretibial edema Neurological exam: PRESENT: alert, awake, oriented to person, oriented to place , oriented to time, oriented to situation Skin exam: PRESENT: dry, warm. ABSENT: cyanosis Results Laboratory Results: 01/16/17 04:33 01/14/17 03:57 01/16/17 04:33 WBC 9.4 RBC 3.78 Hgb 10.5 L Hct 32.1 L MCV 85 MCH 27.7 MCHC 32.7 RDW 18.5 H Plt Count 246 Impressions: Chest X-Ray 01/12/17 20:41 IMPRESSION: Obstructive lung disease. Question mild interstitial edema Qualifiers PATEINT BEING DISCHARGED WITH ANY OF THE FOLLOWING DIAGNOSIS?: No Plan Discharge Plan: Follow-up with primary care physician in 1 week. Time Spent: Less than 30 Minutes
[2017-01-16 12:54] VITALS: BP 102/68
== END 2017-01-16 13:15 | disposition home or self-care (01) | DRG 871 ==
LOC: ER 20:39 → EH 23:28 → UNDOADMIN 23:43 → 4N 01-13 03:25 → EH 01-13 03:25
PROVIDERS: ADMIT Internal Medicine; ATTEND Internal Medicine
DX: A41.9 Sepsis, unspecified organism (principal); J18.9 Pneumonia, unspecified organism; J96.21 Acute and chronic respiratory failure with hypoxia; J44.0 Chronic obstructive pulmonary disease with (acute) lower respiratory infection; J44.1 Chronic obstructive pulmonary disease with (acute) exacerbation; N39.0 Urinary tract infection, site not specified; I50.32 Chronic diastolic (congestive) heart failure; Z68.41 Body mass index [BMI] 40.0-44.9, adult; J32.9 Chronic sinusitis, unspecified; I11.0 Hypertensive heart disease with heart failure; E11.9 Type 2 diabetes mellitus without complications; K21.9 Gastro-esophageal reflux disease without esophagitis; E78.5 Hyperlipidemia, unspecified; E66.01 Morbid (severe) obesity due to excess calories; G47.33 Obstructive sleep apnea (adult) (pediatric); G25.81 Restless legs syndrome; Z79.82 Long term (current) use of aspirin; Z79.84 Long term (current) use of oral hypoglycemic drugs; Z79.51 Long term (current) use of inhaled steroids; Z79.899 Other long term (current) drug therapy; Z99.81 Dependence on supplemental oxygen; Z87.891 Personal history of nicotine dependence
CPT/HCPCS: 36415; 71010; 80048; 80053; 81001; 82550; 82803; 82962; 83605; 83735; 83880; 84484; 85025; 85027; 85610; 87040; 87086; 87088; 87186; 93005; 93010; 94640; 94660; 94799; 96365; 96375; 99285; J1644; J1720; J1815; J1940; J1956; J2930; J3370; J3490; J7030; J7060; J7512; J7620

== ENCOUNTER → 2017-05-16 | Outpatient (CLI) | payer OTHER ==
--- NOTE | 2017-05-16 17:45 | WOMENS IMAGING REPORT ---
EXAM DESCRIPTION: BILAT SCREENING MAMMO W/CAD COMPLETED DATE/TIME: 05/16/2017 1:46 pm REASON FOR STUDY: ROUTINE SCREENING ;Z12.31 Z12.31 ENCNTR SCREEN MAMMOGRAM FOR MALIGNANT NEOPLASM O F BRYCE COMPARISON: Multiple since 2008 TECHNIQUE: Standard craniocaudal and mediolateral oblique views of each breast recorded using Tilsona l acquisition. LIMITATIONS: None. FINDINGS: No masses, calcifications or architectural distortion. No areas of suspicion. Read with the assistance of CAD. .[facility] - R2 Cenova Version 1.3 .[facility] - R2 Cenova Version 1.3 .[facility] - R2 Cenova Version 2.4 .[facility] - R2 Cenova Version 2.4 .[facility] - R2 Dye Range Operator Version 9.2 IMPRESSION: NORMAL MAMMOGRAM. BIRADS 1. BREAST DENSITY: a. The breasts are almost entirely fatty. BIRAD: 1 NEGATIVE RECOMMENDATION: ROUTINE SCREENING Please consider bilateral screening tomosynthesis in April 2018 COMMENT: The patient has been notified of the results by letter per SA requirements. Additional no tification policies are in place for contacting patient with suspicious or incomplete findings. Quality ID #[id number]: The [employer] recommends an annual screening mammogram for women aged 40 years or over. This facility utilizes a reminder system to ensure that all patients receive reminder letters, and/or direct phone calls for appointments. This includes reminders for routine scr eening mammograms, diagnostic mammograms, or other Breast Imaging Interventions when appropriate. Th is patient will be placed in the appropriate reminder system. The [employer] (ACR) has developed recommendations for screening MRI of the breast s in certain patient populations, to be used in conjunction with mammography. Breast MRI surveillanc e may be appropriate for women with more than 20% lifetime risk of developing breast cancer as deter mined by genetic testing, significant family history of the disease, or history of mantle radiation f or Hodgkins Disease. ACR Practice Guidelines 2008. TECHNICAL DOCUMENTATION: FINDING NUMBER: (1) ASSESSMENT: (1) JOB ID: [id number] [employer]- All Rights Reserved
== END ==
LOC: WI 12:56
PROVIDERS: ATTEND Physician Assistant
DX: Z12.31 Encounter for screening mammogram for malignant neoplasm of breast (principal)
CPT/HCPCS: 77067

== ENCOUNTER 2017-06-15 19:09 | Emergency (ER) | payer OTHER ==
--- NOTE | 2017-06-15 19:42 | ER Document Report ---
ED Medical Screen (RME) - General Chief Complaint: Abdominal Pain Stated Complaint: LOWER ABDOMINAL PAIN Time Seen by Provider: 06/15/17 19:37 Mode of Arrival: Wheelchair Information source: Patient Notes: 61-year-old female history of emphysema COPD who states that for the past few years whenever she ambulates a few steps her oxygen level drops to the 60s presents with complaints of oxygen level dropping as well as abdominal pain. On arrival to emergency department patient is satting 88%, she ambulated approximately 15 steps and sats immediately dropped to 67% while on oxygen Patient immediately taken to room I have greeted and performed a rapid initial assessment of this patient. A comprehensive ED assessment and evaluation of the patient, analysis of test results and completion of the medical decision making process will be conducted by additional ED providers. PHYSICAL EXAMINATION: GENERAL: Well-appearing, well-nourished and in moderate distress. HEAD: Atraumatic, normocephalic. EYES: Pupils equal round extraocular movements intact, conjunctiva are normal. ENT: Nares patent NECK: Normal range of motion LUNGS: Moderate respiratory distress Musculoskeletal: Normal range of motion NEUROLOGICAL: Normal speech, normal gait. PSYCH: Normal mood, normal affect. SKIN: Warm, Dry, normal turgor, no rashes or lesions noted. TRAVEL OUTSIDE OF THE [place] IN LAST 30 DAYS: No - Related Data Allergies/Adverse Reactions: No Known Allergies Allergy (Verified 11/27/16 08:41) Past Medical History - Past Medical History Cardiac Medical History: Reports: Hx Congestive Heart Failure - Diastolic congestive heart failure, Hx Hypercholesterolemia, Hx Hypertension Denies: Hx Coronary Artery Disease, Hx Heart Attack Pulmonary Medical History: Reports: Hx Asthma, Hx Bronchitis, Hx COPD - Chronically on 4 L per nasal cannula, Hx Sleep Apnea - CPAP Denies: Hx Pneumonia Neurological Medical History: Denies: Hx Cerebrovascular Accident, Hx Seizures Endocrine Medical History: Reports: Hx Diabetes Mellitus Type 2 Renal/ Medical History: Denies: Hx Peritoneal Dialysis GI Medical History: Reports: Hx Gastroesophageal Reflux Disease. Denies: Hx Hepatitis, Hx Hiatal Hernia, Hx Ulcer Musculoskeltal Medical History: Reports Hx Arthritis - Osteoporosis Psychiatric Medical History: Denies: Hx Depression Infectious Medical History: Denies: Hx Hepatitis Past Surgical History: Reports: Hx Hysterectomy. Denies: Hx Mastectomy, Hx Open Heart Surgery, Hx Pacemaker - Immunizations Hx Diphtheria, Pertussis, Tetanus Vaccination: No Physical Exam - Vital signs Vitals: Temp Pulse Resp BP Pulse Ox 100.0 F 103 H 20 114/68 85 L 06/15/17 19:14 06/15/17 19:14 06/15/17 19:14 06/15/17 19:14 06/15/17 19:14 Course - Vital Signs Vital signs: Temp Pulse Resp BP Pulse Ox 100.0 F 103 H 20 114/68 85 L 06/15/17 19:14 06/15/17 19:14 06/15/17 19:14 06/15/17 19:14 06/15/17 19:14
--- NOTE | 2017-06-15 20:06 | ER Document Report ---
ED General - General Chief Complaint: Abdominal Pain Stated Complaint: LOWER ABDOMINAL PAIN Time Seen by Provider: 06/15/17 19:37 Mode of Arrival: Wheelchair Information source: Patient Notes: 61-year-old female with a history of oxygen dependent COPD (4 L at home), CHF, hypertension, diabetes who presents to the emergency room with lower abdominal discomfort for the past 2 days. Patient states at baseline her oxygen saturations will drop into the 60s on ambulation and will hover around 90 during rest. Patient denies any vomiting. She does states she has been nauseous. She does report constipation (last bowel movement 3 days ago). TRAVEL OUTSIDE OF THE [place] IN LAST 30 DAYS: No - HPI Onset: Yesterday Onset/Duration: Gradual Quality of pain: Dull Severity: Mild Pain Level: 1 Associated symptoms: Nausea - Patient shortness of breath is chronic, Shortness of breath, Other - Lower abdominal discomfort Exacerbated by: Denies Relieved by: Denies Similar symptoms previously: Yes Recently seen / treated by doctor: No - Related Data Allergies/Adverse Reactions: No Known Allergies Allergy (Verified 11/27/16 08:41) Past Medical History - General Information source: Patient - Social History Smoking Status: Unknown if Ever Smoked Family History: COPD, DM, Hypertension Patient has suicidal ideation: No Patient has homicidal ideation: No - Past Medical History Cardiac Medical History: Reports: Hx Congestive Heart Failure - Diastolic congestive heart failure, Hx Hypercholesterolemia, Hx Hypertension Denies: Hx Coronary Artery Disease, Hx Heart Attack Pulmonary Medical History: Reports: Hx Asthma, Hx Bronchitis, Hx COPD - Chronically on 4 L per nasal cannula, Hx Sleep Apnea - CPAP Denies: Hx Pneumonia Neurological Medical History: Denies: Hx Cerebrovascular Accident, Hx Seizures Endocrine Medical History: Reports: Hx Diabetes Mellitus Type 2 Renal/ Medical History: Denies: Hx Peritoneal Dialysis GI Medical History: Reports: Hx Gastroesophageal Reflux Disease. Denies: Hx Hepatitis, Hx Hiatal Hernia, Hx Ulcer Musculoskeltal Medical History: Reports Hx Arthritis - Osteoporosis Psychiatric Medical History: Denies: Hx Depression Infectious Medical History: Denies: Hx Hepatitis Past Surgical History: Reports: Hx Hysterectomy. Denies: Hx Mastectomy, Hx Open Heart Surgery, Hx Pacemaker - Immunizations Hx Diphtheria, Pertussis, Tetanus Vaccination: No Hx Pneumococcal Vaccination: 02/04/11 Physical Exam - Vital signs Vitals: Temp Pulse Resp BP Pulse Ox 100.0 F 103 H 20 114/68 85 L 06/15/17 19:14 06/15/17 19:14 06/15/17 19:14 06/15/17 19:14 06/15/17 19:14 Notes: Physical exam: GENERAL: 61-year-old female, alert and oriented 3, no acute distress. Oxygen saturation at this time is 88% entheses trip patient just walked into the room) . Patient does not look in distress. The patient is accompanied by her who says that this oxygen saturation is nothing out of the ordinary for her. Rectal temp 100.7 rectally. HEAD: Atraumatic, normocephalic. EYES: Pupils equal round and reactive to light, extraocular movements intact, sclera anicteric, conjunctiva are normal. ENT: TMs normal, nares patent, oropharynx clear without exudates. Moist mucous membranes. NECK: Normal range of motion, supple without obvious mass or JVD. LUNGS: Scattered wheezing bilaterally, otherwise good air movement. HEART: Regular rate and rhythm without murmurs, rubs or gallops. ABDOMEN: Soft, normoactive bowel sounds. No tenderness to palpation. No guarding, no rebound. No masses appreciated. Rectal: Brown stool, sent for study, no masses EXTREMITIES: Normal range of motion, no pitting or edema. No clubbing or cyanosis. NEUROLOGICAL: Cranial nerves II through XII grossly intact. Normal speech, moving all extremities. PSYCH: Normal mood, normal affect. SKIN: Warm, Dry, normal turgor, no rashes or lesions noted. Course - Re-evaluation Re-evalutation: 06/15/17 22:42 Note: The CT of the abdomen shows an uncomplicated sigmoid diverticulitis. The patient's abdomen exam is soft and nontender. There is no guarding or rebound or any peritoneal findings. Patient looks good. She does have significant underlying lung disease and she has a history of T satting (at baseline) when she walks around with O2 sats in the 60s and 70s. The patient is lying in stretcher and looks good and is comfortable and she says this is her normal baseline pulmonary status. Her who is at the bedside also states the same thing. Her chest x-ray is clear. I do not hear any significant wheezing on repeat lung exam. We have started her on oral Cipro and Flagyl in the emergency room and I will send her home with a prescription for both. I will give her a copy of today's labs, CT report, urine analysis so that she can bring that copy to her primary care doctor. - Vital Signs Vital signs: Temp Pulse Resp BP Pulse Ox 99.4 F 103 H 18 106/70 97 06/15/17 23:00 06/15/17 19:14 06/15/17 22:49 06/15/17 22:49 06/15/17 22:49 - Laboratory Result Diagrams: 06/15/17 20:00 06/15/17 20:00 Laboratory results interpreted by me: 06/15/17 06/15/17 06/15/17 20:00 20:00 20:00 WBC 15.4 H Hgb 11.4 L MCH 26.7 L MCHC 31.4 L RDW 15.9 H Seg Neutrophils % 82.0 H Lymphocytes % 9.8 L Absolute Neutrophils 12.6 H Sodium 134.8 L Chloride 96 L Est GFR (Non-Af Amer) 58 L Lactic Acid 0.6 L AST 10 L Creatine Kinase 144 H Total Protein 6.1 L Ur Leukocyte Esterase 06/15/17 20:54 WBC Hgb MCH MCHC RDW Seg Neutrophils % Lymphocytes % Absolute Neutrophils Sodium Chloride Est GFR (Non-Af Amer) Lactic Acid AST Creatine Kinase Total Protein Ur Leukocyte Esterase LARGE H - Diagnostic Test Radiology reviewed: Image reviewed, Reports reviewed - Chest x-ray shows COPD without infiltrates - EKG Interpretation by Me Rate: Normal Rhythm: NSR - EKG shows normal sinus rhythm with a ventricular rate of 91, no acute ST-T wave changes Discharge - Discharge Clinical Impression: Diverticulitis Condition: Stable Disposition: HOME, SELF-CARE Additional Instructions: Thank you for choosing [facility] for your care. The examination and treatment you have received in the Emergency Department today has been rendered on an emergency basis only and is not intended to be a substitute for complete medical care. You should contact your doctor as it is important that she/he examine you for any new or remaining problems. If given a copy of any lab tests or radiology reports, please bring them with you when you see your physician. If your problem worsens or new symptoms appear and you are unable to arrange prompt follow-up care, return to the Emergency Department. Specific signs to look out for: Worsening abdominal pain, worsening shortness of breath, or any concerns or getting worse. Any other instructions: Drink plenty of fluids, rest, take antibiotics as prescribed. Aloe up with your primary care doctor: Bring a copy of today's labs, CT reports and urinalysis with you. Primary Care Doctor's affiliated with [facility]: If you do not have a primary care doctor or you are unable to get an appointment during that time, you can try one of the doctor's below. These are internal medicine doctor's that have admitting priveledges to the hospital ( they will see you both in the office as well as in this hospital if you are ever hospitalized here). Dr. Kelly Alfaro [address], [place] [address] [phone] Dr Moreno Address: [address] [place] [address] [place] [address] Dr Evans Address: [address] [place] [address] , [place] [address] Prescriptions: Ciprofloxacin HCl [Cipro 500 mg Tablet] 500 mg PO BID #20 tablet Metronidazole [Flagyl 500 mg Tablet] 500 mg PO TID #30 tablet Referrals: GEO COTE MD [Primary Care Provider] - Follow up as needed
[2017-06-15 20:27] LABS: ABSOLUTE LYMPHOCYTES (AUTO) 1.5 10^3/uL (0.5-4.7); ABSOLUTE MONOCYTES (AUTO) 1.2 10^3/uL (0.1-1.4); ABSOLUTE NEUT (AUTO) 12.6 10^3/uL (1.7-8.2); BASOPHILS % (AUTO) 0.3 % (0-2); EOSINOPHILS % (AUTO) 0.3 % (0-6); HEMATOCRIT 36.4 % (36.0-47.0); HEMOGLOBIN 11.4 g/dL (12.0-15.5); LYMPHOCYTES % (AUTO) 9.8 % (13-45); MEAN CORPUSCULAR HEMOGLOBIN 26.7 pg (27.0-33.4); MEAN CORPUSCULAR HGB CONC 31.4 g/dL (32.0-36.0); MEAN CORPUSCULAR VOLUME 85 fl (80-97); MONOCYTES % (AUTO) 7.6 % (3-13); PLATELET COUNT 338 10^3/uL (150-450); RED BLOOD COUNT 4.29 10^6/uL (3.72-5.28); RED CELL DISTRIBUTION WIDTH 15.9 % (11.5-14.0); TOTAL CELLS COUNTED % (AUTO) 100 %; VENOUS BLOOD BASE EXCESS 4.8 mmol/L; VENOUS BLOOD HCO3 30.8 mmol/L (20-32); VENOUS BLOOD PCO2 51.9 mmHg (35-63); VENOUS BLOOD PH 7.39 (7.30-7.42); WHITE BLOOD COUNT 15.4 10^3/uL (4.0-10.5)
[2017-06-15 20:34] LABS: INTERNATIONAL RATION (INR) 0.98; PROTHROMBIN TIME 13.7 SEC (11.4-15.4)
--- NOTE | 2017-06-15 20:36 | RADIOLOGY REPORT (SQ) ---
EXAM DESCRIPTION: CHEST SINGLE VIEW COMPLETED DATE/TIME: 06/15/2017 8:23 pm REASON FOR STUDY: emphysema, copd , hypoxemia COMPARISON: 2017. NUMBER OF VIEWS: One view. TECHNIQUE: Single frontal radiographic view of the chest acquired. LIMITATIONS: None. FINDINGS: LUNGS AND PLEURA: Chronic hyperinflation with areas of scarring and chronic interstitial c hanges, most notable in the lung bases. No pneumothorax. No suggestion of acute infiltrate or overt superimposed pulmonary edema. MEDIASTINUM AND HILAR STRUCTURES: Stable. HEART AND VASCULAR STRUCTURES: Heart normal in size. Normal vasculature. BONES: No acute findings. HARDWARE: None in the chest. OTHER: No other significant finding. IMPRESSION: Stable appearance of the chest, with COPD and chronic interstitial changes. TECHNICAL DOCUMENTATION: JOB ID: [id number] [employer]- All Rights Reserved
[2017-06-15 20:47] LABS: ALANINE AMINOTRANSFERASE 26 U/L (9-52); ALKALINE PHOSPHATASE 83 U/L (38-126); ANION GAP 13 (5-19); ASPARTATE AMINO TRANSFERASE 10 U/L (14-36); BILIRUBIN,DIRECT 0.4 mg/dL (0.0-0.4); BILIRUBIN,TOTAL 0.9 mg/dL (0.2-1.3); BLOOD UREA NITROGEN 15 mg/dL (7-20); CALCIUM 8.4 mg/dL (8.4-10.2); CARBON DIOXIDE 26 mmol/L (22-30); CHLORIDE 96 mmol/L (98-107); CREATINE KINASE 144 U/L (30-135); GLUCOSE 102 mg/dL (75-110); POTASSIUM 4.1 mmol/L (3.6-5.0); SODIUM 134.8 mmol/L (137-145); TOTAL PROTEIN 6.1 g/dL (6.3-8.2)
[2017-06-15 20:59] LABS: NT PRO BNP 429 pg/mL (5-900)
[2017-06-15 21:00] LABS: CREATINE KINASE MB < 0.22 ng/mL (<4.55); TROPONIN I < 0.012 ng/mL
[2017-06-15 21:13] LABS: BILIRUBIN,URINE NEGATIVE (NEGATIVE); COLOR,URINE YELLOW; GLUCOSE, URINE NEGATIVE (NEGATIVE); KETONES,URINE NEGATIVE (NEGATIVE); LEUKOCYTE ESTERASE,URINE LARGE (NEGATIVE); NITRITE,URINE NEGATIVE (NEGATIVE); PROTEIN,URINE NEGATIVE (NEGATIVE); URINE SPECIFIC GRAVITY 1.013; UROBILINOGEN,URINE NEGATIVE mg/dL (<2.0)
[2017-06-15 21:14] LABS: APPEARANCE,URINE SLIGHTLY HAZY
--- NOTE | 2017-06-15 21:47 | EKG REPORT ---
SEVERITY:- NORMAL ECG - SINUS RHYTHM : Confirmed by: Gonzalo Kunz 15-Jun-2017 21:46:42
--- NOTE | 2017-06-15 21:57 | RADIOLOGY REPORT (SQ) ---
EXAM DESCRIPTION: CT ABD/PELVIS NO ORAL OR IV COMPLETED DATE/TIME: 06/15/2017 9:29 pm REASON FOR STUDY: abd pain, h/o ckd COMPARISON: None. TECHNIQUE: CT scan of the abdomen and pelvis performed without intravenous or oral contrast. Images reviewed with lung, soft tissue, and bone windows. Reconstructed coronal and sagittal MPR images revi ewed. All images stored on PACS. All CT scanners at this facility use dose modulation, iterative reconstruction, and/or weight based d osing when appropriate to reduce radiation dose to as low as reasonably achievable (ALARA). [facility]: Dose Right [facility]: CareDose [facility]: Dose Right [facility]: Teradose 4D [facility]: Smart [place] RADIATION DOSE: CT Rad equipment meets quality standard of care and radiation dose reduction techniq ues were employed. CTDIvol: 18.7 mGy. DLP: 957 mGy-cm.mGy. LIMITATIONS: None. FINDINGS: LOWER CHEST: No significant findings. No nodules or infiltrates. NON-CONTRASTED LIVER, SPLEEN, ADRENALS: Liver enlarged but homogeneous. Spleen unremarkable. No adr enal mass. PANCREAS: No masses. No peripancreatic inflammatory changes. GALLBLADDER: Mildly distended gallbladder without calcified stones or duct dilatation. RIGHT KIDNEY AND URETER: No solid masses. No significant calcification. No hydronephrosis or hydroure ter. LEFT KIDNEY AND URETER: No solid masses. No significant calcification. No hydronephrosis or hydrouret er. AORTA AND RETROPERITONEUM: No aneurysm. No retroperitoneal masses or adenopathy. BOWEL AND PERITONEAL CAVITY: Wall thickening, diverticulosis and pericolonic fat stranding along the sigmoid colon. No suggestion of free perforation or abscess. No mechanical bowel obstruction. APPENDIX: Normal. PELVIS, BLADDER, AND ABDOMINAL WALL:No abnormal masses. No free fluid. Bladder normal. BONES: No significant findings. OTHER: No other significant finding. IMPRESSION: 1. Uncomplicated sigmoid diverticulitis. No evidence of abscess or perforation. 2. Hep atomegaly. TECHNICAL DOCUMENTATION: JOB ID: [id number] Quality ID # [id number]: Final reports with documentation of one or more dose reduction techniques (e.g., Au tomated exposure control, adjustment of the mA and/or kV according to patient size, use of iterative reconstruction technique) 2010 [employer]- All Rights Reserved
[2017-06-15] MEDS ORDERED: CIPROFLOXACIN HCL 500 MG TABLET PO ONE (22:41)
[2017-06-15] MEDS ORDERED: METRONIDAZOLE 500 MG TABLET PO ONE (22:41)
[2017-06-15 23:01] VITALS: BP 106/70
== END 2017-06-15 23:05 | disposition home or self-care (01) ==
LOC: ER 19:09
DX: K57.32 Diverticulitis of large intestine without perforation or abscess without bleeding (principal); J44.9 Chronic obstructive pulmonary disease, unspecified; Z99.81 Dependence on supplemental oxygen; K59.00 Constipation, unspecified; R11.0 Nausea; I10 Essential (primary) hypertension; E11.9 Type 2 diabetes mellitus without complications
CPT/HCPCS: 36415; 71045; 74176; 80053; 81001; 82272; 82550; 82553; 82803; 83605; 83880; 84484; 85025; 85610; 87040; 87086; 93005; 93010; 99284

== ENCOUNTER 2017-07-01 21:27 | Inpatient (IN) | payer OTHER ==
[2017-07-01] MEDS ORDERED: IPRATROPIUM/ALBUTEROL 0.5-2.5 MG/3 ML AMPUL NEB ONE ×2 (21:47→21:57)
[2017-07-01] MEDS ORDERED: LEVOFLOXACIN 500 MG/D5W RTU 500 MG/100 ML RTUPB IV SCH (22:00)
[2017-07-01 22:03] LABS: ABSOLUTE BASOPHILS # (AUTO) 0.1 10^3/uL (0.0-0.2); ABSOLUTE LYMPHOCYTES (AUTO) 1.5 10^3/uL (0.5-4.7); ABSOLUTE MONOCYTES (AUTO) 1.2 10^3/uL (0.1-1.4); ABSOLUTE NEUT (AUTO) 16.1 10^3/uL (1.7-8.2); BASOPHILS % (AUTO) 0.4 % (0-2); HEMATOCRIT 37.2 % (36.0-47.0); HEMOGLOBIN 11.5 g/dL (12.0-15.5); MEAN CORPUSCULAR HGB CONC 30.9 g/dL (32.0-36.0); MEAN CORPUSCULAR VOLUME 84 fl (80-97); MONOCYTES % (AUTO) 6.2 % (3-13); PLATELET COUNT 333 10^3/uL (150-450); RED BLOOD COUNT 4.41 10^6/uL (3.72-5.28); RED CELL DISTRIBUTION WIDTH 16.9 % (11.5-14.0); SEGMENTED NEUTROPHILS % (AUTO) 85.4 % (42-78); TOTAL CELLS COUNTED % (AUTO) 100 %; WHITE BLOOD COUNT 18.9 10^3/uL (4.0-10.5)
--- NOTE | 2017-07-01 22:21 | ER Document Report ---
ED Respiratory Problem - General Chief Complaint: Chills, [place], breathing difficulty Stated Complaint: COLD LIKE SYMPTOMS Time Seen by Provider: 07/01/17 21:46 Mode of Arrival: Ambulatory Information source: Patient TRAVEL OUTSIDE OF THE [place] IN LAST 30 DAYS: No - HPI Patient complains to provider of: Short of breath Onset: This morning Notes: The patient is here with complaints of shortness of breath. The patient has a history of COPD as well as CHF. She is on 4 L of oxygen at home daily. Normal O2 saturations are in the upper 80s. She states that since this morning she has been feeling ill. She has felt short of breath. She reports O2 saturations in the 60s at home. She does report having fevers at home. She states that she took Tylenol just prior to her arrival here. She denies any chest pain. She denies any recent trips or surgeries, leg pain or swelling, cancer, hormones, history of DVT or PE. She denies abdominal pain. She denies nausea, vomiting, diarrhea. She denies any other complaints at this time. She denies any recent admissions to the hospital within the last 3 months. She lives at home. - Related Data Allergies/Adverse Reactions: No Known Allergies Allergy (Verified 11/27/16 08:41) Past Medical History - Social History Smoking Status: Unknown if Ever Smoked Family History: COPD, DM, Hypertension - Past Medical History Cardiac Medical History: Reports: Hx Congestive Heart Failure - Diastolic congestive heart failure, Hx Hypercholesterolemia, Hx Hypertension Denies: Hx Coronary Artery Disease, Hx Heart Attack Pulmonary Medical History: Reports: Hx Asthma, Hx Bronchitis, Hx COPD - Chronically on 4 L per nasal cannula, Hx Sleep Apnea - CPAP Denies: Hx Pneumonia Neurological Medical History: Denies: Hx Cerebrovascular Accident, Hx Seizures Endocrine Medical History: Reports: Hx Diabetes Mellitus Type 2 Renal/ Medical History: Denies: Hx Peritoneal Dialysis GI Medical History: Reports: Hx Gastroesophageal Reflux Disease. Denies: Hx Hepatitis, Hx Hiatal Hernia, Hx Ulcer Musculoskeltal Medical History: Reports Hx Arthritis - Osteoporosis Psychiatric Medical History: Denies: Hx Depression Infectious Medical History: Denies: Hx Hepatitis Past Surgical History: Reports: Hx Hysterectomy. Denies: Hx Mastectomy, Hx Open Heart Surgery, Hx Pacemaker - Immunizations Hx Diphtheria, Pertussis, Tetanus Vaccination: No Hx Pneumococcal Vaccination: 02/04/11 Review of Systems - Review of Systems -: Yes All other systems reviewed and negative Physical Exam - Vital signs Vitals: Temp Pulse Resp BP Pulse Ox 99.7 F 117 H 22 H 108/58 L 64 L 07/01/17 21:37 07/01/17 21:37 07/01/17 21:37 07/01/17 21:37 07/01/17 21:37 - Notes Notes: GENERAL: alert, cooperative, patient is in moderate respiratory distress.. HEAD: normocephalic, atraumatic EYES: conjunctiva pink without discharge, no external redness or swelling. EARS: no external swelling, no external redness NOSE: atraumatic, no external swelling MOUTH/THROAT: mucous membranes moist and pink, posterior pharynx without erythema, swelling, exudate. No trismus or drooling. NECK: soft, supple, full range of motion, no meningismus. CHEST: Moderate respiratory distress. Expiratory wheezing throughout with poor air movement initially. CARDIAC: regular rhythm, tachycardia, no murmur, normal capillary refill, normal pulses. No peripheral edema noted. ABDOMEN: Soft, nontender. BACK: full range of motion, no CVA tenderness. EXTREMITIES: full range of motion of all extremities. No redness, no swelling. NEURO: alert and oriented x 3, no focal deficits, full range of motion of all extremities. PYSCH: appropriate mood, affect. Patient is cooperative. SKIN: pink, warm, dry, no rash. Course - Re-evaluation Re-evalutation: 07/01/17 22:18 Reassessment of the patient at this time shows that her oxygen saturations have come up to 89% on 40% [place] mask with DuoNeb. Patient states that she is feeling better at this time. We will continue to monitor. 07/01/17 23:01 Patient continues to feel better at this time. She currently satting 90% on 40 % Venturi mask. She is noted to have an elevated white blood cell count 18. Her lactate is normal. Her vitals remained stable. Awaiting chest x-ray results. She is noted to have a slightly elevated troponin 07/02/17 00:25 Patient is feeling better at this time and in no significant distress. O2 saturations 91% on 40% Venturi mask. Heart rate in 99 and blood pressure 108/ 55. EKG shows no acute abnormalities. Patient is noted to have an elevated white count of 18. Lactate is normal. No signs of sepsis. No IV fluids were ordered due to the fact that she has a history of congestive heart failure. She is not hypotensive. Remainder of her labs showed no significant abnormalities with a slight increase in her troponin. Patient was given Levaquin as well as Solu-Medrol and duo nebs. This point she is feeling better. ABG shows normal pH with normal PCO2 and PO2 of 60. This point the patient will be admitted to the hospital for further evaluation and management of her symptoms. - Vital Signs Vital signs: Temp Pulse Resp BP Pulse Ox 99.7 F 117 H 21 H 108/55 L 91 L 07/01/17 21:37 07/01/17 21:37 07/01/17 23:03 07/01/17 23:03 07/01/17 23:03 - Laboratory Result Diagrams: 07/01/17 21:48 07/01/17 21:48 Laboratory results interpreted by me: 07/01/17 07/01/17 07/01/17 21:48 21:48 22:15 WBC 18.9 H Hgb 11.5 L MCH 26.0 L MCHC 30.9 L RDW 16.9 H Seg Neutrophils % 85.4 H Lymphocytes % 8.0 L Absolute Neutrophils 16.1 H ABG pO2 64.4 L ABG HCO3 27.5 H ABG Total CO2 28.8 H ABG O2 Saturation 92.9 L Sodium 134.4 L Potassium 5.1 H Chloride 96 L Est GFR (Non-Af Amer) 56 L Glucose 121 H - Diagnostic Test Radiology reviewed: Image reviewed, Reports reviewed - Developing right lower lobe pneumonia. - EKG Interpretation by Me EKG shows normal: Sinus rhythm, Allen, Intervals, QRS Complexes, ST-T Waves Rate: Tachycardia Discharge - Discharge Clinical Impression: Hypoxia Pneumonia Qualifiers: Pneumonia type: due to unspecified organism Laterality: right Lung location: lower lobe of lung Qualified Code(s): J18.1 - Lobar pneumonia, unspecified organism Condition: Serious Disposition: ADMITTED INPATIENT Admitting Provider: Hospitalist Unit Admitted: IMCU Referrals: GEO COTE MD [Primary Care Provider] - Follow up as needed
[2017-07-01 22:28] LABS: ARTERIAL BLOOD BASE EXCESS 2.7 mmol/L; ARTERIAL BLOOD FIO2 40%; ARTERIAL BLOOD HCO3 27.5 mmol/L (20-26); ARTERIAL BLOOD O2 SATURATION 92.9 % (94-98); ARTERIAL BLOOD PCO2 43.3 mmHg (35-45); ARTERIAL BLOOD PH 7.42 (7.35-7.45); ARTERIAL BLOOD PO2 64.4 mmHg (80-100); ARTERIAL BLOOD TOTAL CO2 28.8 mmol/L (21-25)
[2017-07-01 22:31] LABS: ALANINE AMINOTRANSFERASE 28 U/L (9-52); ALBUMIN 4.3 g/dL (3.5-5.0); ALKALINE PHOSPHATASE 67 U/L (38-126); ANION GAP 11 (5-19); ASPARTATE AMINO TRANSFERASE 23 U/L (14-36); BILIRUBIN,DIRECT 0.1 mg/dL (0.0-0.4); BILIRUBIN,TOTAL 1.1 mg/dL (0.2-1.3); BLOOD UREA NITROGEN 17 mg/dL (7-20); CALCIUM 9.1 mg/dL (8.4-10.2); CARBON DIOXIDE 27 mmol/L (22-30); CHLORIDE 96 mmol/L (98-107); GLUCOSE 121 mg/dL (75-110); POTASSIUM 5.1 mmol/L (3.6-5.0); SODIUM 134.4 mmol/L (137-145); TOTAL PROTEIN 7.2 g/dL (6.3-8.2)
[2017-07-01 22:34] LABS: TROPONIN I 0.038 ng/mL
[2017-07-01] MEDS ORDERED: LEVOFLOXACIN 500 MG/D5W RTU 500 MG/100 ML RTUPB IV ONE (23:00)
--- NOTE | 2017-07-01 23:21 | RADIOLOGY REPORT (SQ) ---
EXAM DESCRIPTION: CHEST SINGLE VIEW COMPLETED DATE/TIME: 07/01/2017 10:09 pm REASON FOR STUDY: sob COMPARISON: 06/15/2017 EXAM PARAMETERS: NUMBER OF VIEWS: One view. TECHNIQUE: Single frontal radiographic view of the chest acquired. RADIATION DOSE: NA LIMITATIONS: None. FINDINGS: LUNGS AND PLEURA: Slight increased hazy opacity in the right lung base, possible developin g airspace disease superimposed on chronic interstitial changes. No pneumothorax. No significant ef fusion. MEDIASTINUM AND HILAR STRUCTURES: Stable. HEART AND VASCULAR STRUCTURES: Stable. BONES: No acute findings. HARDWARE: None in the chest. OTHER: No other significant finding. IMPRESSION: Slight increased hazy opacity in the right lung base, possible developing airspace disea se superimposed on chronic interstitial changes. TECHNICAL DOCUMENTATION: JOB ID: [id number] [place]-72 2010 [employer]- All Rights Reserved Reading location - IP/workstation name: [employer]
[2017-07-02 00:24] LABS: APPEARANCE,URINE CLEAR; BILIRUBIN,URINE NEGATIVE (NEGATIVE); COLOR,URINE YELLOW; GLUCOSE, URINE NEGATIVE (NEGATIVE); KETONES,URINE NEGATIVE (NEGATIVE); LEUKOCYTE ESTERASE,URINE LARGE (NEGATIVE); NITRITE,URINE NEGATIVE (NEGATIVE); PROTEIN,URINE NEGATIVE (NEGATIVE); URINE SPECIFIC GRAVITY 1.005; UROBILINOGEN,URINE NEGATIVE mg/dL (<2.0)
[2017-07-02] MEDS ORDERED: METHYLPREDNISOLONE INJ 125 MG/2 ML SDV IV ONE (00:24)
[2017-07-02] MEDS ORDERED: ACETAMINOPHEN 325 MG TABLET PO PRN (00:36)
[2017-07-02] MEDS ORDERED: PROMETHAZINE HCL INJ 25 MG/1 ML VIAL IV PRN (00:36)
[2017-07-02] MEDS ORDERED: DOCUSATE SODIUM 100 MG CAPSULE PO PRN (00:36)
[2017-07-02] MEDS ORDERED: ALBUTEROL SULFATE 0.083% NEB 2.5 MG/3 ML AMPUL NEB PRN (00:36)
[2017-07-02] MEDS ORDERED: GUAIFENESIN 600 MG TABLET.SA PO ONE (01:00)
[2017-07-02] MEDS ORDERED: DEXTROSE 40% GEL 15 GM TUBE PO PRN ×2 (01:15)
[2017-07-02] MEDS ORDERED: DEXTROSE 50%-WATER 25 GM/50 ML DISP.SYRIN IV PRN ×2 (01:15)
[2017-07-02] MEDS ORDERED: GLUCAGON,HUMAN RECOMB 1 MG INJ IM PRN (01:15)
--- NOTE | 2017-07-02 02:04 | PDOC H&P ---
History of Present Illness Admission Date/PCP: GEO COTE MD Patient complains of: Worsening shortness of breath in the last couple days. History of Present Illness: JIMMY SCHRADER is a 61 year old female with history of chronic respiratory failure/LAUREL (on 4 L home oxygen, BiPAP at night), chronic congestive heart failure and type 2 diabetes mellitus was admitted with above-mentioned complaint. The patient denied any chest pain but complained of palpitations, subjective fever and chills x1 day. She also has a nonproductive cough, questionable sore throat for the last few days. She denied any sick contacts or recent travels. She is up-to-date with her flu and pneumonia vaccines. She said that she usually uses her nebulizer treatment twice a day but she had to use it 3 times a day yesterday with no improvement in her breathing. Her oxygen saturation was reportedly down to the 60s while on 4 L nasal cannula. She also mentioned that her noticed that she had bilateral ankle edema in the last couple days. The patient has 3 pillow orthopnea and PND chronically and her exercise tolerance is limited by her shortness of breath to few feet. She said that she usually uses BiPAP at night and follows with Dr. Bashir of pulmonary as outpatient. In the ED, her temperature was 99.7, heart rate 117, respiratory rate 22, blood pressure 108/58 with a oxygen saturation of 64% on 4 L nasal cannula. Her WBC was 18.9 and her hemoglobin was 11.5. Her initial troponin was 0.038 and her proBNP was 578. Her chest x-ray showed right lower lobe infiltrate. She received 2 DuoNeb treatments, 125 mg IV Solu-Medrol and 500 mg Levaquin 1 for presumed pneumonia and she was placed on 50% Ventimask with improvement in her breathing. Past Medical History Medical History: Other - According to the patient and based on previous records. Cardiac Medical History: Reports: Congestive Heart Failure - Diastolic congestive heart failure, Hyperlipidema, Hypertension Denies: Coronary Artery Disease, Myocardial Infarction Pulmonary Medical History: Reports: Asthma, Bronchitis, Chronic Obstructive Pulmonary Disease (COPD) - Chronically on 4 L per nasal cannula, Sleep Apnea - CPAP Denies: Pneumonia Neurological Medical History: Denies: Seizures Endocrine Medical History: Reports: Diabetes Mellitus Type 2 GI Medical History: Reports: Gastroesophageal Reflux Disease Denies: Hepatitis, Hiatal Hernia Musculoskeltal Medical History: Reports: Arthritis - Osteoporosis Psychiatric Medical History: Denies: Depression Hematology: Denies: Anemia, Sickle Cell Disease Past Surgical History Past Surgical History: Reports: Hysterectomy Denies: Amputation, Mastectomy, Pacemaker Social History Smoking Status: Former Smoker Cigarettes Packs Per Day: 0 - She used to smoke 1 pack a day for more than 20 years. She quit 20 years ago. Frequency of Alcohol Use: None Hx Recreational Drug Use: No Drugs: None Hx Prescription Drug Abuse: No - Advance Directive Resuscitation Status: Full Code Family History Family History: COPD, DM, Hypertension Parental Family History Reviewed: Yes - Mother: of liver cancer. Father of lung cancer. Children Family History Reviewed: No Sibling(s) Family History Reviewed.: Yes Medication/Allergy Home Medications: Albuterol Sulfate [Proair HFA Inhalation Aerosol 8.5 gm MDI] 2 puff IH Q6 Albuterol Sulfate [Ventolin 0.083% Neb 2.5 mg/3 mL Ampul] 3 ml NEB Q4HP PRN Aspirin [Ecotrin 81 mg EC Tablet] 81 mg PO DAILY 01/13/17 Atorvastatin Calcium [Lipitor 10 mg Tablet] 10 mg PO QHS 01/13/17 Carvedilol [Coreg 3.125 mg Tablet] 3.125 mg PO Q12 01/13/17 Cetirizine HCl [Zyrtec 5 mg Tablet] 5 mg PO BID 01/13/17 Diltiazem HCl [Diltiazem 24Hr ER] 120 mg PO DAILY 01/13/17 Fluticasone Propionate [Flonase Nasal [place] 50 Mcg/[place] 16 gm] 1 spray NASL BID 01/13/17 Furosemide [Lasix 20 mg Tablet] 20 mg PO DAILYP PRN 01/13/17 Magnesium Oxide [Mag-Ox 400 mg Tablet] 400 mg PO Q12 01/13/17 Metformin HCl [Glucophage 500 mg Tablet] 500 mg PO BID 01/13/17 Montelukast Sodium [Singulair 10 mg Tablet] 10 mg PO QHS 01/13/17 Pantoprazole Sodium [Protonix] 40 mg PO DAILY 01/13/17 Pramipexole Di-HCl [Pramipexole Dihydrochloride] 0.25 mg PO QHS 01/13/17 Ramipril [Altace 10 mg Capsule] 10 mg PO DAILY 01/13/17 Umeclidinium Brm/Vilanterol Tr [Anoro Ellipta 62.5-25 Mcg INH] 1 puff IH DAILY 01/13/17 Prednisone [Sterapred Ds] 1 pkg PO ASDIR PRN 12 Days tab.ds.pk 01/16/17 Sulfamethoxazole/Trimethoprim [Septra-Ds 800-160 mg Tablet] 1 tab PO BID #20 tablet 01/16/17 Valacyclovir HCl [Valtrex] 2,000 mg PO HSP #2 tablet 01/16/17 Ciprofloxacin HCl [Cipro 500 mg Tablet] 500 mg PO BID #20 tablet 06/15/17 Metronidazole [Flagyl 500 mg Tablet] 500 mg PO TID #30 tablet 06/15/17 Allergies/Adverse Reactions: No Known Allergies Allergy (Verified 11/27/16 08:41) Review of Systems ROS unobtainable: Other - Thin positives and negatives as per HPI. The patient denied any abdominal pain, nausea vomiting, diarrhea or constipation or any urinary symptoms. She also denies any focal weakness or numbness. She complained of frontal headache today. Physical Exam Vital Signs: Temp Pulse Resp BP Pulse Ox 99.7 F 117 H 21 H 108/55 L 91 L 07/01/17 21:37 07/01/17 21:37 07/01/17 23:03 07/01/17 23:03 07/01/17 23:03 Intake & Output 06/30/17 07/01/17 07/02/17 06:59 06:59 06:59 Weight 108.862 kg General appearance: PRESENT: no acute distress - on 50% ventimask., well- developed Head exam: PRESENT: atraumatic, normocephalic Eye exam: PRESENT: conjunctiva pink, PERRLA Mouth exam: PRESENT: dry mucosa - mild, tongue midline Neck exam: PRESENT: full ROM. ABSENT: JVD Respiratory exam: PRESENT: decreased breath sounds, wheezes - diffuse.. ABSENT : rales, rhonchi Cardiovascular exam: PRESENT: tachycardia - S1 S2 normal. Pulses: PRESENT: normal dorsalis pedis pul Vascular exam: PRESENT: normal capillary refill GI/Abdominal exam: PRESENT: normal bowel sounds, soft. ABSENT: distended, guarding, rebound, tenderness Rectal exam: PRESENT: deferred Extremities exam: PRESENT: full ROM. ABSENT: pedal edema Neurological exam: PRESENT: alert, awake, oriented to person, oriented to place , oriented to time, oriented to situation. ABSENT: motor sensory deficit Psychiatric exam: PRESENT: appropriate affect Skin exam: PRESENT: dry, intact, warm. ABSENT: cyanosis, rash Results Laboratory Results: 07/01/17 21:48 07/01/17 21:48 07/01/17 07/01/17 07/01/17 21:48 21:48 21:48 WBC 18.9 H RBC 4.41 Hgb 11.5 L Hct 37.2 MCV 84 MCH 26.0 L MCHC 30.9 L RDW 16.9 H Plt Count 333 Seg Neutrophils % 85.4 H Lymphocytes % 8.0 L Monocytes % 6.2 Eosinophils % 0.0 Basophils % 0.4 Absolute Neutrophils 16.1 H Absolute Lymphocytes 1.5 Absolute Monocytes 1.2 Absolute Eosinophils 0.0 Absolute Basophils 0.1 Carbonic Acid HCO3/H2CO3 Ratio ABG pH ABG pCO2 ABG pO2 ABG HCO3 ABG O2 Saturation ABG Base Excess FiO2 Sodium 134.4 L Potassium 5.1 H Chloride 96 L Carbon Dioxide 27 Anion Gap 11 BUN 17 Creatinine 1.00 Est GFR ( Amer) > 60 Est GFR (Non-Af Amer) 56 L Glucose 121 H Lactic Acid 0.9 Calcium 9.1 Total Bilirubin 1.1 AST 23 ALT 28 Alkaline Phosphatase 67 Total Protein 7.2 Albumin 4.3 Urine Color Urine Appearance Urine pH Ur Specific [place] Urine Protein Urine Glucose (UA) Urine Ketones Urine Blood Urine Nitrite Ur Leukocyte Esterase Urine WBC (Auto) Urine RBC (Auto) 07/01/17 07/02/17 22:15 00:06 WBC RBC Hgb Hct MCV MCH MCHC RDW Plt Count Seg Neutrophils % Lymphocytes % Monocytes % Eosinophils % Basophils % Absolute Neutrophils Absolute Lymphocytes Absolute Monocytes Absolute Eosinophils Absolute Basophils Carbonic Acid 1.30 HCO3/H2CO3 Ratio 21:1 ABG pH 7.42 ABG pCO2 43.3 ABG pO2 64.4 L ABG HCO3 27.5 H ABG O2 Saturation 92.9 L ABG Base Excess 2.7 FiO2 40% Sodium Potassium Chloride Carbon Dioxide Anion Gap BUN Creatinine Est GFR ( Amer) Est GFR (Non-Af Amer) Glucose Lactic Acid Calcium Total Bilirubin AST ALT Alkaline Phosphatase Total Protein Albumin Urine Color YELLOW Urine Appearance CLEAR Urine pH 7.0 Ur Specific [place] 1.005 Urine Protein NEGATIVE Urine Glucose (UA) NEGATIVE Urine Ketones NEGATIVE Urine Blood NEGATIVE Urine Nitrite NEGATIVE Ur Leukocyte Esterase LARGE H Urine WBC (Auto) 17 Urine RBC (Auto) 2 07/01/17 21:48 Troponin I 0.038 NT-Pro-B Natriuret Pep 578 EKG Comments: 12 lead EKG: sinus rhythm, ventricular rate 105, axis +65, first-degree AV block , QTC prolongation, no acute changes. Compared to previous 12-lead EKG done on 06/15/2017, sinus rhythm, ventricular rate 90, axis +65, first-degree AV block, no acute changes. Impressions: Chest X-Ray 07/01/17 21:43 IMPRESSION: Slight increased hazy opacity in the right lung base, possible developing airspace disease superimposed on chronic interstitial changes. Assessment & Plan - Diagnosis (1) Acute and chronic respiratory failure, unspecified whether with hypoxia or hypercapnia Qualifiers: Respiratory failure complication: hypoxia and hypercapnia Qualified Code(s) : J96.21 - Acute and chronic respiratory failure with hypoxia; J96.22 - Acute and chronic respiratory failure with hypercapnia; J96.22 - Acute and chronic respiratory failure with hypercapnia; J96.22 - Acute and chronic respiratory failure with hypercapnia Is this a current diagnosis for this admission?: Yes Plan: Given tachypnea and oxygen saturation of 64% in addition to PCO2 of 64.4, secondary to COPD exacerbation and/or questionable pneumonia and/or PE superimposed on LAUREL (she is on BIPAP at night per patient), less likely cardiac. CXR reviewed. We will continue to cycle cardiac enzymes. According to the patient, she had a recent echocardiogram done as outpatient (report not in the computer). Will check CAT scan angiogram of the chest. We will start scheduled duonebs, IV Solu-Medrol and Levaquin. Of note, the patient follows with pulmonary as outpatient, not sure about her PFTs results. (2) SIRS (systemic inflammatory response syndrome) Is this a current diagnosis for this admission?: Yes Plan: Given leukocytosis and tachycardia, questionable RLL pneumonia. Lactic acid 0.9. We will continue Levaquin for now and follow-up blood cultures done in the ED. (3) History of chronic congestive heart failure Is this a current diagnosis for this admission?: No Plan: According to the patient, she never had an NE or any cardiac workup done. She apparently had a recent echocardiogram as outpatient about a month ago (report is not in the computer). We will continue to cycle cardiac enzymes. Further workup can be done as outpatient once she is clinically stable. (4) Essential hypertension Is this a current diagnosis for this admission?: No Plan: We will resume her home BP medications once verified by pharmacy. We will continue to monitor for now. (5) Type 2 diabetes mellitus Qualifiers: Diabetes mellitus complication status: with unspecified complications Diabetes mellitus exterminator termite insulin use: without exterminator termite use Qualified Code( s): E11.8 - Type 2 diabetes mellitus with unspecified complications Is this a current diagnosis for this admission?: No Plan: The patient is on metformin at home. Will start Humalog sliding scale while hospitalized. (6) LAUREL treated with BiPAP Is this a current diagnosis for this admission?: No - Time Time Spent: Greater than 70 Minutes Medications reviewed and adjusted accordingly: Yes Anticipated discharge: Home - Inpatient Certification Based on my medical assessment, after consideration of the patient's comorbidities, presenting symptoms, or acuity I expect that the services needed warrant INPATIENT care.: Yes I certify that my determination is in accordance with my understanding of Medicare's requirements for reasonable and necessary INPATIENT services [42 CFR 412.3e].: Yes
[2017-07-02] MEDS: HEPARIN SOD (PORCINE) 5,000 UNIT/ML 1 ML SYRINGE SUBCUT SCH ×3 (06:09→22:15)
[2017-07-02] MEDS: METHYLPREDNISOLONE INJ 40 MG/1 ML SDV IV SCH ×3 (06:15→22:16)
[2017-07-02] MEDS ORDERED: LEVALBUTEROL HCL NEB 1.25 MG/3 ML AMPUL NEB PRN (08:46)
--- NOTE | 2017-07-02 08:59 | EKG REPORT ---
SEVERITY:- OTHERWISE NORMAL ECG - SINUS TACHYCARDIA : Confirmed by: Gonzalo Kunz 02-Jul-2017 08:58:12
[2017-07-02] MEDS ORDERED: IPRATROPIUM/ALBUTEROL 0.5-2.5 MG/3 ML AMPUL NEB ONE (09:30)
--- NOTE | 2017-07-02 09:55 | RADIOLOGY REPORT (SQ) ---
EXAM DESCRIPTION: CTA CHEST COMPLETED DATE/TIME: 07/02/2017 9:26 am REASON FOR STUDY: hypoxia COMPARISON: 12/28/2016. TECHNIQUE: CT scan of the chest performed using helical scanning technique with dynamic intravenous contrast injection. Images reviewed with lung, soft tissue and bone windows. Reconstructed coronal and sagittal MPR images reviewed. Additional 3 dimensional post-processing performed to develop Maximal Intensity Projection images ([place] P). All images stored on PACS. All CT scanners at this facility use dose modulation, iterative reconstruction, and/or weight based d osing when appropriate to reduce radiation dose to as low as reasonably achievable (ALARA). [facility]: Dose Right [facility]: CareDose [facility]: Dose Right [facility]: Teradose 4D [facility]: [employer] CONTRAST TYPE AND DOSE: contrast/concentration: Isovue 370.00 mg/ml; Total Contrast Delivered: 82.0 ml; Total Saline Delivered: 90.4 ml Contrast bolus adequate for pulmonary arteries and aorta. RENAL FUNCTION: BUN 17 creatinine 1.0. RADIATION DOSE: CT Rad equipment meets quality standard of care and radiation dose reduction techniq ues were employed. CTDIvol: 26.2 - 41.3 mGy. DLP: 1001 mGy-cm. . LIMITATIONS: None. FINDINGS: LUNGS AND PLEURA: Emphysematous changes with chronic scarring. No masses, infiltrates, pn eumothorax. No pleural effusions, calcifications. AORTA AND GREAT VESSELS: No aneurysm. No dissection. HEART: No pericardial effusion. No significant coronary artery calcifications. PULMONARY ARTERIES: No emboli visualized in the main pulmonary arteries or the segmental branches. HILAR AND MEDIASTINAL STRUCTURES: No identified masses or abnormal nodes. HARDWARE: None in the chest. UPPER ABDOMEN: No significant findings. Limited exam. THYROID AND OTHER SOFT TISSUES: No masses. No adenopathy. BONES: No acute or significant finding. 3D MIPS: Confirm above findings. OTHER: No other significant finding. IMPRESSION: NORMAL CTA OF THE CHEST. NO PULMONARY EMBOLI. COMMENT: Quality ID # [id number]: Final reports with documentation of one or more dose reduction techniques (e.g., Automated exposure control, adjustment of the mA and/or kV according to patient size, use of iterative reconstruction technique) TECHNICAL DOCUMENTATION: JOB ID: [id number] 3943 [employer]- All Rights Reserved Reading location - IP/workstation name: [email or web address]
[2017-07-02 10:02] LABS: HEMATOCRIT 36.2 % (36.0-47.0); HEMOGLOBIN 11.2 g/dL (12.0-15.5); MEAN CORPUSCULAR HEMOGLOBIN 25.9 pg (27.0-33.4); MEAN CORPUSCULAR VOLUME 84 fl (80-97); PLATELET COUNT 269 10^3/uL (150-450); RED BLOOD COUNT 4.34 10^6/uL (3.72-5.28); RED CELL DISTRIBUTION WIDTH 16.7 % (11.5-14.0); WHITE BLOOD COUNT 14.9 10^3/uL (4.0-10.5)
[2017-07-02 10:30] LABS: ARTERIAL BLOOD FIO2 4L; ARTERIAL BLOOD H2CO3 1.65 mmol/L (1.05-1.35); ARTERIAL BLOOD HCO3 28.8 mmol/L (20-26); ARTERIAL BLOOD O2 SATURATION 90.7 % (94-98); ARTERIAL BLOOD PCO2 54.7 mmHg (35-45); ARTERIAL BLOOD PH 7.34 (7.35-7.45); ARTERIAL BLOOD PO2 63.6 mmHg (80-100); ARTERIAL BLOOD TOTAL CO2 30.5 mmol/L (21-25)
[2017-07-02 10:32] LABS: ABSOLUTE LYMPHOCYTES# (MANUAL) 0.3 10^3/uL (0.5-4.7); ABSOLUTE NEUTROPHILS# (MANUAL) 14.6 10^3/uL (1.7-8.2); ANISOCYTOSIS 1+; BASOPHILS % (MANUAL) 0 % (0-2); EOSINOPHILS % (MANUAL) 0 % (0-6); LYMPHOCYTES % (MANUAL) 2 % (13-45); MONOCYTES % (MANUAL) 0 % (3-13); POLYCHROMASIA SLIGHT; SEGMENTED NEUTROPHILS % (MAN) 98 % (42-78); TOTAL CELLS COUNTED 100
[2017-07-02 10:33] LABS: PLATELET COMMENT ADEQUATE; TOXIC GRANULATION 1+
[2017-07-02 10:36] LABS: ANION GAP 11 (5-19); BLOOD UREA NITROGEN 15 mg/dL (7-20); CARBON DIOXIDE 26 mmol/L (22-30); CHLORIDE 102 mmol/L (98-107); GLUCOSE 253 mg/dL (75-110); POTASSIUM 4.7 mmol/L (3.6-5.0); SODIUM 138.8 mmol/L (137-145)
[2017-07-02] MEDS: GUAIFENESIN 600 MG TABLET.SA PO SCH ×2 (12:23→22:15)
[2017-07-02] MEDS: INSULIN LISPRO 100 UNIT/ML 3 ML VIAL SUBCUT PRN ×2 (12:23→22:26)
[2017-07-02] MEDS: IPRATROPIUM/ALBUTEROL 0.5-2.5 MG/3 ML AMPUL NEB SCH ×2 (14:08→20:35)
[2017-07-02] MEDS ORDERED: METOPROLOL SUCCINATE 25 MG TAB.SR.24H PO SCH (16:30)
--- NOTE | 2017-07-02 18:04 | Progress Note ---
Provider Note Provider Note: JIMMY SCHRADER was evaluated this morning in the emergency department. At the time she was on a Venturi mask (unclear Fi02 setting) resting comfortably in bed. The patient was noted to have inspiratory and expiratory wheezing in all lung song, she was started on q6hr scheduled duo nebs, as well as as needed DuoNeb and Xopenex treatments as needed. The patient was seen later when transferred to the third floor this was after the nebulizer treatment. She stated that she felt much better. Wheezing had cleared up in all lung song. The patient was only requiring supplemental oxygen via nasal cannula at that time.
[2017-07-02] MEDS: BUDESONIDE NEB 0.5 MG/2 ML AMPUL NEB SCH (20:35)
[2017-07-02] MEDS ORDERED: LEVOFLOXACIN 500 MG/D5W RTU 500 MG/100 ML RTUPB IV SCH (22:00)
[2017-07-02] MEDS: CARVEDILOL 3.125 MG TABLET PO SCH (22:16)
[2017-07-02] MEDS: LEVOFLOXACIN 500 MG TABLET PO SCH (22:16)
[2017-07-02] MEDS: MONTELUKAST SODIUM 10 MG TABLET PO SCH (22:16)
[2017-07-02] MEDS: PRAMIPEXOLE DI-HCL 0.25 MG TABLET PO SCH (22:18)
[2017-07-03] MEDS: IPRATROPIUM/ALBUTEROL 0.5-2.5 MG/3 ML AMPUL NEB SCH ×4 (01:52→19:43)
[2017-07-03 05:26] LABS: HEMATOCRIT 34.6 % (36.0-47.0); HEMOGLOBIN 10.7 g/dL (12.0-15.5); MEAN CORPUSCULAR HEMOGLOBIN 26.1 pg (27.0-33.4); MEAN CORPUSCULAR VOLUME 84 fl (80-97); PLATELET COUNT 240 10^3/uL (150-450); RED CELL DISTRIBUTION WIDTH 16.2 % (11.5-14.0); WHITE BLOOD COUNT 11.5 10^3/uL (4.0-10.5)
[2017-07-03 05:47] LABS: ANION GAP 8 (5-19); BLOOD UREA NITROGEN 23 mg/dL (7-20); CALCIUM 8.8 mg/dL (8.4-10.2); CARBON DIOXIDE 27 mmol/L (22-30); CHLORIDE 100 mmol/L (98-107); GLUCOSE 174 mg/dL (75-110); POTASSIUM 5.5 mmol/L (3.6-5.0); SODIUM 135.3 mmol/L (137-145)
[2017-07-03] MEDS: HEPARIN SOD (PORCINE) 5,000 UNIT/ML 1 ML SYRINGE SUBCUT SCH ×3 (05:52→22:27)
[2017-07-03] MEDS: METHYLPREDNISOLONE INJ 40 MG/1 ML SDV IV SCH (05:53)
[2017-07-03] MEDS: LANSOPRAZOLE 30 MG TAB.RAP.DR PO SCH (05:55)
[2017-07-03 06:27] LABS: ARTERIAL BLOOD BASE EXCESS 0.7 mmol/L; ARTERIAL BLOOD FIO2 60%; ARTERIAL BLOOD H2CO3 1.74 mmol/L (1.05-1.35); ARTERIAL BLOOD HCO3 27.9 mmol/L (20-26); ARTERIAL BLOOD O2 SATURATION 99.1 % (94-98); ARTERIAL BLOOD PCO2 57.9 mmHg (35-45); ARTERIAL BLOOD PO2 189.8 mmHg (80-100); ARTERIAL BLOOD TOTAL CO2 29.7 mmol/L (21-25)
[2017-07-03] MEDS: BUDESONIDE NEB 0.5 MG/2 ML AMPUL NEB SCH ×2 (07:34→19:42)
[2017-07-03] MEDS: INSULIN LISPRO 100 UNIT/ML 3 ML VIAL SUBCUT PRN ×4 (08:12→22:27)
[2017-07-03] MEDS: MAGNESIUM OXIDE 400 MG TABLET PO SCH ×2 (09:55→18:22)
[2017-07-03] MEDS: GUAIFENESIN 600 MG TABLET.SA PO SCH ×2 (09:56→22:27)
[2017-07-03] MEDS: CHOLECALCIFEROL (D3) 1,000 UNIT TABLET PO SCH (09:56)
[2017-07-03] MEDS: CARVEDILOL 3.125 MG TABLET PO SCH ×2 (09:57→22:27)
[2017-07-03] MEDS: FUROSEMIDE 40 MG TABLET PO SCH ×2 (09:57→18:22)
[2017-07-03] MEDS: RAMIPRIL 10 MG CAPSULE PO SCH (09:57)
[2017-07-03] MEDS ORDERED: (PENDING PHARMACY ID) (Umeclidinium Brm/Vilanterol Tr [Anoro Ellipta 62.5-25 Mcg Inh] 1 PU IH SCH (10:00)
[2017-07-03] MEDS ORDERED: PROMETHAZINE HCL INJ 25 MG/1 ML VIAL IV PRN (13:00)
[2017-07-03 14:20] LABS: ARTERIAL BLOOD BASE EXCESS 1.5 mmol/L; ARTERIAL BLOOD H2CO3 1.64 mmol/L (1.05-1.35); ARTERIAL BLOOD HCO3 28.3 mmol/L (20-26); ARTERIAL BLOOD PCO2 54.6 mmHg (35-45); ARTERIAL BLOOD PH 7.33 (7.35-7.45); ARTERIAL BLOOD PO2 71.2 mmHg (80-100); ARTERIAL BLOOD TOTAL CO2 29.9 mmol/L (21-25)
[2017-07-03 14:21] LABS: ARTERIAL BLOOD FIO2 4L
[2017-07-03] MEDS: METHYLPREDNISOLONE INJ 125 MG/2 ML SDV IV SCH ×2 (14:51→22:27)
--- NOTE | 2017-07-03 17:19 | PDOC PROGRESS REPORT ---
Subjective Progress Note for:: 07/03/17 Subjective:: JIMMY SCHRADER is a 61 year old female admitted for fever and chills x 1 day, palpitations, nonproductive cough, sore throat. She states that she usually uses her nebulizer treatment twice a day but she has used it 3 times a day 24 hours prior to arrival with no improvement in her breathing. Patient has a H chronic respiratory failure/LAUREL (on 4 L home oxygen, BIPAP at night), chronic congestive heart failure and type 2 diabetes. Patient seen this morning on rounds, she states she feels much better after receiving her nebulizer treatments and on BiPAP overnight. The patient is sitting up in bed on supplemental oxygen. She is alert, oriented, and participatory in care. The patient is tolerating her diabetic diet. She is able to get out of bed and ambulate to the bathroom without becoming short of breath. Reason For Visit: HYPOXIA Physical Exam Vital Signs: Temp Pulse Resp BP Pulse Ox 97.9 F 77 16 91/44 L 94 07/03/17 11:33 07/03/17 14:00 07/03/17 13:35 07/03/17 11:33 07/03/17 16:00 Intake & Output 07/02/17 07/03/17 07/04/17 06:59 06:59 06:59 Intake Total 1680 760 Balance 1680 760 Weight 106.6 kg General appearance: PRESENT: no acute distress Head exam: PRESENT: atraumatic Eye exam: PRESENT: conjunctiva pink Mouth exam: PRESENT: moist Neck exam: PRESENT: full ROM Respiratory exam: PRESENT: wheezes - Slight wheezing heard in bilateral lower lung bases Cardiovascular exam: PRESENT: +S1, +S2 Pulses: PRESENT: normal radial pulses, normal dorsalis pedis pul GI/Abdominal exam: PRESENT: ascites Rectal exam: PRESENT: deferred Musculoskeletal exam: PRESENT: full ROM Neurological exam: PRESENT: alert, altered, awake, oriented to person, oriented to place, oriented to time, oriented to situation Psychiatric exam: PRESENT: appropriate affect Results Laboratory Results: 07/03/17 04:47 07/03/17 04:47 07/03/17 07/03/17 07/03/17 04:47 04:47 05:50 WBC 11.5 H RBC 4.10 Hgb 10.7 L Hct 34.6 L MCV 84 MCH 26.1 L MCHC 31.0 L RDW 16.2 H Plt Count 240 Carbonic Acid 1.74 H HCO3/H2CO3 Ratio 16:1 ABG pH 7.30 L ABG pCO2 57.9 H ABG pO2 189.8 H ABG HCO3 27.9 H ABG O2 Saturation 99.1 H ABG Base Excess 0.7 FiO2 60% Sodium 135.3 L Potassium 5.5 H Chloride 100 Carbon Dioxide 27 Anion Gap 8 BUN 23 H Creatinine 0.87 Est GFR ( Amer) > 60 Est GFR (Non-Af Amer) > 60 Glucose 174 H Calcium 8.8 Magnesium 2.5 H 07/03/17 14:05 WBC RBC Hgb Hct MCV MCH MCHC RDW Plt Count Carbonic Acid 1.64 H HCO3/H2CO3 Ratio 17:1 ABG pH 7.33 L ABG pCO2 54.6 H ABG pO2 71.2 L ABG HCO3 28.3 H ABG O2 Saturation 93.0 L ABG Base Excess 1.5 FiO2 4L Sodium Potassium Chloride Carbon Dioxide Anion Gap BUN Creatinine Est GFR ( Amer) Est GFR (Non-Af Amer) Glucose Calcium Magnesium 07/02/17 07/02/17 07/02/17 03:45 09:40 16:05 Troponin I 0.046 0.015 < 0.012 NT-Pro-B Natriuret Pep 07/03/17 04:47 Troponin I NT-Pro-B Natriuret Pep 1100 H Impressions: Chest X-Ray 07/01/17 21:43 IMPRESSION: Slight increased hazy opacity in the right lung base, possible developing airspace disease superimposed on chronic interstitial changes. Chest/Abdomen CTA 07/02/17 00:00 IMPRESSION: NORMAL CTA OF THE CHEST. NO PULMONARY EMBOLI. Status: Imported from PACS Assessment & Plan - Diagnosis (1) Acute and chronic respiratory failure, unspecified whether with hypoxia or hypercapnia Qualifiers: Respiratory failure complication: hypoxia and hypercapnia Qualified Code(s) : J96.21 - Acute and chronic respiratory failure with hypoxia; J96.22 - Acute and chronic respiratory failure with hypercapnia; J96.22 - Acute and chronic respiratory failure with hypercapnia; J96.22 - Acute and chronic respiratory failure with hypercapnia Is this a current diagnosis for this admission?: Yes Plan: Long-standing history of COPD. The patient uses 4LNC supplemental oxygen at home. The patient states that when she ambulates around her house her Sp02 will drop to the 70s despite being on nasal cannula. CTA chest shows emphysematous changes, negative for PE. Chest Xray shows interstitial lung disease, no evidence of infiltrates. ABG from this morning shows mild respiratory acidosis with metabolic compensation. Continue scheduled duo nebs, IV Solu-Medrol and Levaquin. BIPAP at night. Pulmonary has been consulted, appreciate their recommendations. (2) Essential hypertension Is this a current diagnosis for this admission?: Yes Plan: Patient has been NORMOtensive since admission. Goal is to keep her MAP > 65. (3) History of chronic congestive heart failure Is this a current diagnosis for this admission?: Yes Plan: Patient is followed by Dr. Arrington of [facility]. Recent echocardiogram as outpatient done approximately 1 month ago. Cardiac enzymes negative, no longer trending. Continue home dose Coreg. (4) SIRS (systemic inflammatory response syndrome) Is this a current diagnosis for this admission?: Yes Plan: Improved. Leukocytosis improving, patient no longer tachycardic. Continue Levaquin. Consider narrowing antibiotic coverage according to blood culture results. 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 The patient currently takes metformin at home, will hold this medication while she is inpatient. (6) LAUREL treated with BiPAP Is this a current diagnosis for this admission?: Yes Plan: Continue BiPAP at night. - Time Time Spent with patient: 15-24 minutes Anticipated discharge: Home Within: within 48 hours - Inpatient Certification Based on my medical assessment, after consideration of the patient's comorbidities, presenting symptoms, or acuity I expect that the services needed warrant INPATIENT care.: Yes I certify that my determination is in accordance with my understanding of Medicare's requirements for reasonable and necessary INPATIENT services [42 CFR 412.3e].: Yes Medical Necessity: Risk of Complication if Not Cared For in Hospital - Plan Summary Plan Summary: Ultimately, the plan is to discharge the patient home
[2017-07-03] MEDS: MONTELUKAST SODIUM 10 MG TABLET PO SCH (22:27)
[2017-07-03] MEDS: PRAMIPEXOLE DI-HCL 0.25 MG TABLET PO SCH (22:27)
[2017-07-03] MEDS: LEVOFLOXACIN 500 MG TABLET PO SCH (22:27)
[2017-07-04] MEDS: IPRATROPIUM/ALBUTEROL 0.5-2.5 MG/3 ML AMPUL NEB SCH ×2 (02:48→08:16)
[2017-07-04] MEDS: HEPARIN SOD (PORCINE) 5,000 UNIT/ML 1 ML SYRINGE SUBCUT SCH (06:00)
[2017-07-04] MEDS: LANSOPRAZOLE 30 MG TAB.RAP.DR PO SCH (06:00)
[2017-07-04] MEDS: METHYLPREDNISOLONE INJ 125 MG/2 ML SDV IV SCH (06:00)
[2017-07-04 08:10] LABS: HEMATOCRIT 36.6 % (36.0-47.0); HEMOGLOBIN 11.4 g/dL (12.0-15.5); MEAN CORPUSCULAR HEMOGLOBIN 26.2 pg (27.0-33.4); MEAN CORPUSCULAR HGB CONC 31.1 g/dL (32.0-36.0); MEAN CORPUSCULAR VOLUME 84 fl (80-97); PLATELET COUNT 291 10^3/uL (150-450); RED BLOOD COUNT 4.34 10^6/uL (3.72-5.28); RED CELL DISTRIBUTION WIDTH 16.8 % (11.5-14.0)
[2017-07-04] MEDS: BUDESONIDE NEB 0.5 MG/2 ML AMPUL NEB SCH (08:16)
[2017-07-04 08:21] LABS: ANION GAP 9 (5-19); BLOOD UREA NITROGEN 38 mg/dL (7-20); CALCIUM 9.2 mg/dL (8.4-10.2); CARBON DIOXIDE 31 mmol/L (22-30); CHLORIDE 100 mmol/L (98-107); GLUCOSE 161 mg/dL (75-110); PHOSPHORUS 3.9 mg/dL (2.5-4.5); POTASSIUM 4.7 mmol/L (3.6-5.0); SODIUM 140.2 mmol/L (137-145)
[2017-07-04 08:41] LABS: ABSOLUTE LYMPHOCYTES# (MANUAL) 0.1 10^3/uL (0.5-4.7); ABSOLUTE MONOCYTES # (MANUAL) 0.3 10^3/uL (0.1-1.4); ABSOLUTE NEUTROPHILS# (MANUAL) 9.6 10^3/uL (1.7-8.2); ANISOCYTOSIS 1+; BASOPHILS % (MANUAL) 0 % (0-2); EOSINOPHILS % (MANUAL) 0 % (0-6); LYMPHOCYTES % (MANUAL) 1 % (13-45); METAMYELOCYTES % (MANUAL) 1 % (0); MONOCYTES % (MANUAL) 3 % (3-13); OVALOCYTES SLIGHT; PLATELET CLUMPS PRESENT; POIKILOCYTOSIS SLIGHT; SEGMENTED NEUTROPHILS % (MAN) 95 % (42-78); TOTAL CELLS COUNTED 100; TOXIC GRANULATION SLIGHT
[2017-07-04] MEDS: INSULIN LISPRO 100 UNIT/ML 3 ML VIAL SUBCUT PRN (08:52)
[2017-07-04] MEDS: RAMIPRIL 10 MG CAPSULE PO SCH (10:19)
[2017-07-04] MEDS: MAGNESIUM OXIDE 400 MG TABLET PO SCH (10:19)
[2017-07-04] MEDS: CHOLECALCIFEROL (D3) 1,000 UNIT TABLET PO SCH (10:21)
[2017-07-04] MEDS: FUROSEMIDE 40 MG TABLET PO SCH (10:21)
[2017-07-04] MEDS: CARVEDILOL 3.125 MG TABLET PO SCH (10:22)
[2017-07-04] MEDS: GUAIFENESIN 600 MG TABLET.SA PO SCH (10:22)
[2017-07-04 12:26] VITALS: BP 100/50
--- NOTE | 2017-07-24 20:20 | PDOC DISCHARGE SUMMARY ---
General - Admit/Disc Date/PCP Admission Date/Primary Care Provider: 07/02/17 00:44 GEO COTE MD Discharge Date: 07/04/17 - Discharge Diagnosis (1) Acute and chronic respiratory failure, unspecified whether with hypoxia or hypercapnia Is this a current diagnosis for this admission?: Yes Summary: Long standing history of COPD, likely COPD exacerbation stemming from PNA. Patient presented with tachypnea and Sp02 64%. PCO2 64.4. Required Venturi Mask to maintain Sp02 > 88%. Chest xray showed RLL PNA. CTA chest showed emphysematous changes, negative for PE. Originally treated with IV solumedrol, scheduled duonebs, and BIPAP at night. The patient remained afebrile and nontoxic appearing. She was able to wean back to her home O2 dose of 4L. Patient was discharged home. She has nebulizer at home, was discharged with nebulizer treatments, mucinex, PO levaquin. (2) Essential hypertension Is this a current diagnosis for this admission?: Yes Summary: NORMOtensive on home antihypertensives. No change to medications. (3) History of chronic congestive heart failure Is this a current diagnosis for this admission?: Yes Summary: Patient of Dr. Arrington of [facility]. Recent ECHO done approx. 1 month ago, unknown results. Cardiac enzymes negative. No changes made to home medications. (4) Type 2 diabetes mellitus Is this a current diagnosis for this admission?: Yes Summary: Managed with humalog sliding scale while inpatient. Resumed metformin once discharged (5) LAUREL treated with BiPAP Is this a current diagnosis for this admission?: Yes Summary: Patient normally wears BIPAP at night, continued while inpatient. - Additional Information Resuscitation Status: Full Code Discharge Diet: As Tolerated Discharge Activity: Activity As Tolerated, Balance Activity w/Rest Prescriptions: Guaifenesin [Mucinex Sr 600 mg Tablet.sa] 1,200 mg PO Q12 #14 tablet.sa Ipratropium/Albuterol Sulfate [Duoneb 3 ml Ampul] 3 ml NEB RTQ6 #4 vial.neb Levalbuterol HCl [Xopenex Neb 1.25 mg/3 ml Ampul] 1.25 mg NEB RTQ4HP PRN #4 vial.neb PRN Reason: Levofloxacin [Levaquin 750 mg Tablet] 750 mg PO DAILY #5 tablet Lisinopril [Prinivil 10 mg Tablet] 10 mg PO DAILY #30 tablet Valacyclovir HCl [Valtrex] 2,000 mg PO Q12 1 Days #2 tablet Home Medications: Albuterol Sulfate [Albuterol Sulfate 2.5mg/3 mL] 2.5 mg IH RTQ4 07/02/17 Albuterol Sulfate [Proair HFA Inhalation Aerosol 8.5 gm MDI] 1 puff IH Q4 Aspirin [Aspirin 81 mg Chewable Tablet] 81 mg PO DAILY 07/02/17 Atorvastatin Calcium [Lipitor 10 mg Tablet] 10 mg PO QHS 07/02/17 Carvedilol [Coreg 3.125 mg Tablet] 3.125 mg PO Q12 07/02/17 Cetirizine HCl [Zyrtec 5 mg Chewable Tablet] 5 mg PO BID 07/02/17 Cholecalciferol (Vitamin D3) [Vitamin D3 5000 unit Capsule] 5,000 unit PO DAILY 07/02/17 Fluticasone Propionate [Flonase Nasal Ford 50 Mcg/Ford 16 gm] 1 spray NASL Q12 07/02/17 Fluticasone Propionate [Flovent Hfa 110 Mcg Inhalation Aerosol 12 gm] 1 puff IH Q12 07/02/17 Furosemide [Lasix 40 mg Tablet] 40 mg PO BID 07/02/17 Ibandronate Sodium [Boniva] 150 mg PO .MONTHLY 07/02/17 Magnesium Oxide [Mag-Ox 400 mg Tablet] 400 mg PO BID 07/02/17 Metformin HCl [Glucophage] 500 mg PO DAILY 07/02/17 Montelukast Sodium [Singulair 10 mg Tablet] 10 mg PO QHS 07/02/17 Pantoprazole Sodium [Protonix] 40 mg PO DAILY 07/02/17 Pramipexole Di-HCl [Mirapex 0.25 mg Tablet] 0.25 mg PO QHS 07/02/17 Ramipril [Altace 10 mg Capsule] 10 mg PO DAILY 07/02/17 Umeclidinium Brm/Vilanterol Tr [Anoro Ellipta 62.5-25 Mcg INH] 1 puff IH DAILY 07/02/17 Guaifenesin [Mucinex Sr 600 mg Tablet.sa] 1,200 mg PO Q12 #14 tablet.sa Ipratropium/Albuterol Sulfate [Duoneb 3 ml Ampul] 3 ml NEB RTQ6 #4 vial.neb 01/13 Levalbuterol HCl [Xopenex Neb 1.25 mg/3 ml Ampul] 1.25 mg NEB RTQ4HP PRN #4 vial.[facility] 07/04/17 Levofloxacin [Levaquin 750 mg Tablet] 750 mg PO DAILY #5 tablet 07/04/17 Lisinopril [Prinivil 10 mg Tablet] 10 mg PO DAILY #30 tablet 07/04/17 Valacyclovir HCl [Valtrex] 2,000 mg PO Q12 1 Days #2 tablet 07/04/17 History of Present Illness Patient complains of: shortness of breath History of Present Illness: JIMMY SCHRADER is a 61 year old female admitted for fever and chills x 1 day, palpitations, nonproductive cough, sore throat. She states that she usually uses her nebulizer treatment twice a day but she has used it 3 times a day 24 hours prior to arrival with no improvement in her breathing. Patient has a PMH chronic respiratory failure/LAUREL (on 4 L home oxygen, BIPAP at night), chronic congestive heart failure and type 2 diabetes. Chest xray shows RLL PNA. She was treated with Solumedrol, nebulizer treatments , and Levaquin 500mg x 1. Hospital Course Hospital Course: The patient was treated with IV solumedrol and nebulizers for COPD. PO levaquin and mucinex for community acquired PNA. BIPAP at night per patient's normal routine. The patient was initially requiring a Venturi Mask to maintain Sp02 > 88% but was able to wean down to 4LNC (home dose). Patient was eventually discharged home on PO antibiotics, mucinex, and nebulizer treatments. She was instructed to follow up with her PMD. Physical Exam Vital Signs: Temp Pulse Resp BP Pulse Ox 97.7 F 81 20 100/50 L 94 07/04/17 12:21 07/04/17 12:21 07/04/17 12:21 07/04/17 12:21 07/04/17 12:21 General appearance: PRESENT: no acute distress, well-developed, well-nourished Head exam: PRESENT: atraumatic, normocephalic Eye exam: PRESENT: conjunctiva pink, EOMI, PERRLA. ABSENT: scleral icterus Ear exam: PRESENT: normal external ear exam Mouth exam: PRESENT: moist, tongue midline Neck exam: ABSENT: carotid bruit, JVD, lymphadenopathy, thyromegaly Respiratory exam: PRESENT: clear to auscultation alysia - supplemental oxygen, symmetrical, unlabored. ABSENT: rales, rhonchi, wheezes Cardiovascular exam: PRESENT: RRR. ABSENT: diastolic murmur, rubs, systolic murmur Pulses: PRESENT: normal radial pulses, normal dorsalis pedis pul Vascular exam: PRESENT: normal capillary refill GI/Abdominal exam: PRESENT: normal bowel sounds, soft. ABSENT: distended, guarding, mass, organolmegaly, rebound, tenderness Rectal exam: PRESENT: deferred Extremities exam: PRESENT: full ROM. ABSENT: calf tenderness, clubbing, pedal edema Neurological exam: PRESENT: alert, awake, oriented to person, oriented to place , oriented to time, oriented to situation. ABSENT: motor sensory deficit Psychiatric exam: PRESENT: appropriate affect Skin exam: PRESENT: dry, intact, warm. ABSENT: cyanosis, rash Results Laboratory Results: 07/04/17 07:54 07/04/17 07:54 07/02/17 07/02/17 07/02/17 03:45 09:40 16:05 Troponin I 0.046 0.015 < 0.012 NT-Pro-B Natriuret Pep 07/03/17 04:47 Troponin I NT-Pro-B Natriuret Pep 1100 H Impressions: Chest X-Ray 07/01/17 21:43 IMPRESSION: Slight increased hazy opacity in the right lung base, possible developing airspace disease superimposed on chronic interstitial changes. Chest/Abdomen CTA 07/02/17 00:00 IMPRESSION: NORMAL CTA OF THE CHEST. NO PULMONARY EMBOLI. Status: Imported from PACS Qualifiers - * PATEINT BEING DISCHARGED WITH ANY OF THE FOLLOWING DIAGNOSIS?: No Plan Discharge Plan: discharge home with PO antibiotics, mucinex, nebulizer tx, and steroid taper. Patient stated she was about to run out of her lisinopril, so she was provided a prescription. Additionally, she was starting to form a cold sore on her top lip, was sent home with a prescription for valtrex. Time Spent: Less than 30 Minutes
== END 2017-07-04 13:14 | disposition home or self-care (01) | DRG 189 ==
LOC: ER 21:27 → EH 07-02 00:44 → 3S 07-02 10:40
PROVIDERS: ADMIT Internal Medicine Geriatric Medicine; ATTEND Internal Medicine Geriatric Medicine
PROC: 5A09457 Assistance with Respiratory Ventilation, 24-96 Consecutive Hours, Continuous Positive Airway Pressure (ICD-10-PCS; principal; 2017-07-01)
DX: J96.22 Acute and chronic respiratory failure with hypercapnia (principal); J18.9 Pneumonia, unspecified organism; J44.1 Chronic obstructive pulmonary disease with (acute) exacerbation; I50.32 Chronic diastolic (congestive) heart failure; J44.0 Chronic obstructive pulmonary disease with (acute) lower respiratory infection; I11.0 Hypertensive heart disease with heart failure; G47.33 Obstructive sleep apnea (adult) (pediatric); E11.9 Type 2 diabetes mellitus without complications; K21.9 Gastro-esophageal reflux disease without esophagitis; M81.0 Age-related osteoporosis without current pathological fracture; M19.90 Unspecified osteoarthritis, unspecified site; Z99.81 Dependence on supplemental oxygen; Z82.49 Family history of ischemic heart disease and other diseases of the circulatory system; Z90.710 Acquired absence of both cervix and uterus; Z79.84 Long term (current) use of oral hypoglycemic drugs; Z79.899 Other long term (current) drug therapy; Z79.51 Long term (current) use of inhaled steroids; Z87.891 Personal history of nicotine dependence; Z79.82 Long term (current) use of aspirin
CPT/HCPCS: 36415; 36600; 71045; 71275; 80048; 80053; 81001; 82803; 82962; 83605; 83735; 83880; 84100; 84484; 85025; 85027; 87040; 93005; 93010; 94640; 94660; 96365; 99285; J1644; J1815; J1956; J2920; J2930; J3490; J7620

== ENCOUNTER 2017-08-08 07:30 | Day surgery (SDC) | payer OTHER ==
[2017-08-08] MEDS ORDERED: ALBUTEROL SULFATE 0.083% NEB 2.5 MG/3 ML AMPUL NEB ONE (08:10)
[2017-08-08] MEDS ORDERED: PROPOFOL INJ 200 MG/20 ML VIAL IV ONE (09:28)
--- NOTE | 2017-08-08 09:29 | RADIOLOGY REPORT (SQ) ---
EXAM DESCRIPTION: CHEST SINGLE VIEW COMPLETED DATE/TIME: 08/08/2017 9:21 am REASON FOR STUDY: PREOP COMPARISON: CT chest 07/02/2017 Chest films 07/01/2017, and 06/15/2017, 01/12/2017, 11/27/2016 EXAM PARAMETERS: NUMBER OF VIEWS: One view. TECHNIQUE: Single frontal radiographic view of the chest acquired. RADIATION DOSE: NA LIMITATIONS: None. FINDINGS: LUNGS AND PLEURA: Minimal right basilar bandlike scarring or atelectasis. Lungs are otherwise hyperinflated and hyperlucent from obstructive disease. No left infiltrates. No right or left pleural effusion or pneumothorax. MEDIASTINUM AND HILAR STRUCTURES: No masses. Contour normal. HEART AND VASCULAR STRUCTURES: Heart normal in size. Normal vasculature. BONES: No acute findings. HARDWARE: None in the chest. OTHER: No other significant finding. IMPRESSION: Minimal right basilar scarring or atelectasis TECHNICAL DOCUMENTATION: JOB ID: [id number] [employer]- All Rights Reserved Reading location - IP/workstation name: [email or web address]
[2017-08-08] MEDS ORDERED: FUROSEMIDE INJ/PF 40 MG/4 ML SDV ONE (10:32)
[2017-08-08] MEDS ORDERED: DIPHENHYDRAMINE HCL 50 MG/ML VIAL IV PRN (10:33)
[2017-08-08] MEDS ORDERED: MEPERIDINE HCL/PF INJ 25 MG/1 ML DISP.SYRIN IV PRN (10:33)
[2017-08-08] MEDS ORDERED: PROMETHAZINE HCL INJ 25 MG/1 ML VIAL IV PRN ×2 (10:33)
--- NOTE | 2017-08-08 12:28 | Operative Report ---
Operative Report DATE OF SURGERY: 08/08/17 Operative Report: The risks, benefits and alternatives of the procedure including risks of bleeding, perforation requiring surgery are explained to the patient in detail and informed consent was obtained. The patient is taken back to the operating room and placed in a left, lateral decubital position. Timeout was called. Propofol medications administered. A rectal examination is done which did not reveal any masses, tears or fissures. An Olympus videoscope was inserted into the patient's rectum. The scope was then carefully advanced all the way to the cecum. Cecum was identified by the usual anatomical landmarks including the ileocecal valve as well as the appendiceal office. Photodocumentation is obtained. The scope was then sequentially pulled back via the various segments of the colon including the ascending colon, hepatic flexure, transverse colon, splenic flexure, descending colon and finally in to the rectosigmoid portions of the colon. Retroflexion maneuvers performed. The risks benefits and alternatives of the procedure explained to the patient in detail and informed consent is obtained.A GIF Olympus video scope was inserted into the patient's mouth and hypopharynx, the esophagus is identified intubated and insufflated ,the scope was then advanced through the esophagus stomach and duodenum ,retroflexion maneuver is done, the esophagus stomach and first and second portions of the duodenum examined PREOPERATIVE DIAGNOSIS: History of previous diverticulitis. Epigastric pain POSTOPERATIVE DIAGNOSIS: Severe sigmoid diverticulosis with some mild stricturing as noted. No abscess noted. Right side colon Inflammation status post biopsy. Internal hemorrhoids. 2 rectal polyps removed via snare polypectomy and retrieved. Hiatal hernia. Gastritis status post biopsy rule out Helicobacter pylori OPERATION: Colonoscopy with snare polypectomy. Colonoscopy with biopsy. EGD with biopsy SURGEON: ROBBY WEBB ANESTHESIA: LMAC TISSUE REMOVED OR ALTERED: As noted above. COMPLICATIONS: None. ESTIMATED BLOOD LOSS: None. INTRAOPERATIVE FINDINGS: As noted above. PROCEDURE: Patient tolerated procedure well. No immediate postprocedure complications are noted. Patient discharged in good condition. Discharge date August 08, 2017. Discharge diet: Regular. Discharge activity: Regular. 2-3 week follow-up to discuss findings. Patient is instructed call the office or proceed to the emergency room should there be any further problems or questions. We will wait on pathology. Patient may need to consider elective sigmoid resection
--- NOTE | 2017-08-08 13:37 | EKG REPORT ---
SEVERITY:- NORMAL ECG - SINUS RHYTHM : Confirmed by: Mello Herbert MD 08-Aug-2017 13:36:15
[2017-08-08 14:04] VITALS: BP 117/75
== END 2017-08-08 13:40 | disposition home or self-care (01) ==
LOC: OROUT 07:30
PROVIDERS: ATTEND Internal Medicine Gastroenterology
PROC: 0DBF8ZX Excision of Right Large Intestine, Via Natural or Artificial Opening Endoscopic, Diagnostic (ICD-10-PCS; principal; 2017-08-08 09:30)
PROC: 0DBP8ZX Excision of Rectum, Via Natural or Artificial Opening Endoscopic, Diagnostic (ICD-10-PCS; 2017-08-08 09:30)
PROC: 0DB68ZX Excision of Stomach, Via Natural or Artificial Opening Endoscopic, Diagnostic (ICD-10-PCS; 2017-08-08 09:30)
DX: K57.30 Diverticulosis of large intestine without perforation or abscess without bleeding (principal); K52.9 Noninfective gastroenteritis and colitis, unspecified; K64.8 Other hemorrhoids; K44.9 Diaphragmatic hernia without obstruction or gangrene; K29.70 Gastritis, unspecified, without bleeding; D12.8 Benign neoplasm of rectum; Z86.010 Personal history of colon polyps; J43.9 Emphysema, unspecified; I50.9 Heart failure, unspecified; E66.9 Obesity, unspecified; G47.33 Obstructive sleep apnea (adult) (pediatric); Z68.36 Body mass index [BMI] 36.0-36.9, adult
CPT/HCPCS: 43239; 45380; 45385; 36415; 82962; 84132; 88305 ×2; 71045; 93005; 93010; J1940; J2704; 813

== ENCOUNTER 2018-02-01 13:07 | Emergency (ER) | payer OTHER ==
[2018-02-01 13:18] VITALS: BP 132/57
[2018-02-01] MEDS ORDERED: HYDROCODONE/ACETAMINOPHEN 5-325 MG TABLET PO ONE (14:04)
--- NOTE | 2018-02-01 14:19 | ER Document Report ---
HPI - HPI Onset: Just prior to arrival Onset/Duration: Sudden Quality of pain: Achy Pain Level: 5 Context: Patient presents complaining of right wrist injury after she tripped over a rug and fell on outstretched hand. Patient is right-hand dominant. Associated Symptoms: Other - Wrist injury Exacerbated by: Movement Relieved by: Denies Similar symptoms previously: No Recently seen / treated by doctor: No - ROS ROS below otherwise negative: Yes Systems Reviewed and Negative: Yes All other systems reviewed and negative - NEURO Neurology: DENIES: Weakness - GASTROINTESTINAL Gastrointestinal: DENIES: Nausea - REPRODUCTIVE Reproductive: DENIES: : - MUSCULOSKELETAL Musculoskeletal: REPORTS: Extremity pain, Swelling - DERM Skin Color: Ecchymosis Past Medical History - General Information source: Patient - Social History Smoking Status: Current Every Day Smoker Frequency of alcohol use: None Drug Abuse: None Occupation: None Lives with: Family Family History: COPD, DM, Hypertension Patient has suicidal ideation: No Patient has homicidal ideation: No - Past Medical History Cardiac Medical History: Reports: Hx Congestive Heart Failure - Diastolic congestive heart failure, Hx Hypercholesterolemia, Hx Hypertension Denies: Hx Coronary Artery Disease, Hx Heart Attack Pulmonary Medical History: Reports: Hx Asthma, Hx Bronchitis, Hx COPD - ON 4L O2 AT HOME, Hx Sleep Apnea - CPAP Denies: Hx Pneumonia Neurological Medical History: Denies: Hx Cerebrovascular Accident, Hx Seizures Endocrine Medical History: Reports: Hx Diabetes Mellitus Type 2 Renal/ Medical History: Denies: Hx Peritoneal Dialysis GI Medical History: Reports: Hx Gastroesophageal Reflux Disease. Denies: Hx Hepatitis, Hx Hiatal Hernia, Hx Ulcer Musculoskeletal Medical History: Reports Hx Arthritis - FOZIA KNEES Psychiatric Medical History: Denies: Hx Depression Infectious Medical History: Denies: Hx Hepatitis Past Surgical History: Reports: Hx Hysterectomy. Denies: Hx Mastectomy, Hx Open Heart Surgery, Hx Pacemaker - Immunizations Hx Diphtheria, Pertussis, Tetanus Vaccination: - UNSURE Hx Pneumococcal Vaccination: 01/27/16 Vertical Provider Document - CONSTITUTIONAL Agree With Documented VS: Yes Exam Limitations: No Limitations General Appearance: WD/WN, No Apparent Distress - INFECTION CONTROL TRAVEL OUTSIDE OF THE [place] IN LAST 30 DAYS: No - HEENT HEENT: Atraumatic, Normocephalic - NECK Neck: Normal Inspection - RESPIRATORY Respiratory: Breath Sounds Normal, No Respiratory Distress - CARDIOVASCULAR Cardiovascular: Regular Rate, Regular Rhythm Pulses: Normal: Radial - MUSCULOSKELETAL/EXTREMETIES Musculoskeletal/Extremeties: MAEW, Tender - patient with deformity to right wrist with swelling and ecchymosis, patient with snuffbox tenderness, Edema, Eccymosis - NEURO Level of Consciousness: Awake, Alert, Appropriate Motor/Sensory: No Motor Deficit - DERM Integumentary: Warm, Dry, No Rash Course - Re-evaluation Re-evalutation: 02/01/18 14:33 Reviewed patient's x-rays, patient with obvious distal radius and ulna fracture and concern about possible scaphoid fracture. Patient advised of these findings and need to follow-up with orthopedics for further evaluation. - Vital Signs Vital signs: Temp Pulse Resp BP Pulse Ox 98.3 F 80 16 132/57 H 92 02/01/18 13:16 02/01/18 13:16 02/01/18 13:16 02/01/18 13:16 02/01/18 13:16 - Diagnostic Test Radiology reviewed: Pending, Image reviewed Procedures - Immobilization Right Wrist Pre-Proc Neuro Vasc Exam: Normal Immobilizer type: Sugar tong, Sling Performed by: PCT Post-Proc Neuro Vasc Exam: Normal Alignment checked and good: Yes Discharge - Discharge Clinical Impression: Radius and ulna distal fracture Qualifiers: Encounter type: initial encounter Fracture type: closed Laterality: right Qualified Code(s): S52.501A - Unspecified fracture of the lower end of right radius, initial encounter for closed fracture Condition: Stable Disposition: HOME, SELF-CARE Instructions: Fractured Radius and Ulna ([facility]), Sling to be Used ([facility]), Splint Precautions ([facility]) Additional Instructions: Return immediately for any new or worsening symptoms Followup with your primary care provider, call tomorrow to make a followup appointment Follow-up with orthopedics for further evaluation, call today or early tomorrow to make a follow-up appointment. It is possible that you have an additional scaphoid fracture in the wrist, the orthopedic doctor can further evaluate for this injury as well. Prescriptions: Hydrocodone/Acetaminophen [[place] 5-325 Tablet] 1 each PO Q6 PRN #15 tablet PRN Reason: Referrals: GEO COTE MD [Primary Care Provider] - Follow up as needed [facility] [Provider Group] - Follow up tomorrow
--- NOTE | 2018-02-01 14:39 | RADIOLOGY REPORT (SQ) ---
EXAM DESCRIPTION: WRIST RIGHT 3 VIEWS COMPLETED DATE/TIME: 02/01/2018 2:30 pm REASON FOR STUDY: lobby s/p fall with swelling and tenderness COMPARISON: None. NUMBER OF VIEWS: Three views. TECHNIQUE: AP, lateral, and oblique radiographic images acquired of the right wrist. LIMITATIONS: None. FINDINGS: MINERALIZATION: Osteopenic BONES: Acute comminuted distal right radius fracture with intra-articular extension. Mild dorsal ang ulation of the articular surface. Acute ulnar styloid avulsion fragment. SOFT TISSUES: Diffuse soft tissue swelling. No radiopaque foreign body OTHER: No other significant finding. IMPRESSION: Acute comminuted distal right radius fracture with intra-articular extension. Mild dors al angulation of the articular surface. Acute ulnar styloid avulsion fragment. TECHNICAL DOCUMENTATION: JOB ID: [id number] [employer]- All Rights Reserved Reading location - IP/workstation name: [email or web address]
== END 2018-02-01 14:56 | disposition home or self-care (01) ==
LOC: ER 13:07
PROC: 2W3CX1Z Immobilization of Right Lower Arm using Splint (ICD-10-PCS; principal; 2018-02-01)
DX: S52.501A Unspecified fracture of the lower end of right radius, initial encounter for closed fracture (principal); W01.0XXA Fall on same level from slipping, tripping and stumbling without subsequent striking against object, initial encounter; F17.200 Nicotine dependence, unspecified, uncomplicated; I50.9 Heart failure, unspecified; E78.00 Pure hypercholesterolemia, unspecified; I11.0 Hypertensive heart disease with heart failure; E11.9 Type 2 diabetes mellitus without complications; Z90.710 Acquired absence of both cervix and uterus
CPT/HCPCS: 99283

== ENCOUNTER → 2018-02-11 | Outpatient (CLI) | payer OTHER ==
--- NOTE | 2018-02-11 15:07 | WOMENS IMAGING REPORT ---
EXAM DESCRIPTION: RETROPERITONEAL U/S COMPLETED DATE/TIME: 02/11/2018 1:55 pm REASON FOR STUDY: RENAL ULTRASOUND/ N18.3, E11.9 N18.3 CHRONIC KIDNEY DISEASE, STAGE 3 (MODERATE) COMPARISON: None. TECHNIQUE: Dynamic and static grayscale images acquired of the kidneys and bladder and recorded on P ACS. Additional selected color Doppler and spectral images recorded. LIMITATIONS: None. FINDINGS: RIGHT KIDNEY: Normal size. Increased cortical echogenicity. No solid or suspicious ma sses. No hydronephrosis. No calcifications. LEFT KIDNEY: Normal size. Increased cortical echogenicity. No solid or suspicious masses. No h ydronephrosis. No calcifications. BLADDER: No masses. OTHER: No other significant finding. IMPRESSION: CHRONIC MEDICAL RENAL DISEASE. NO HYDRONEPHROSIS. TECHNICAL DOCUMENTATION: JOB ID: [id number] [employer]- All Rights Reserved Reading location - IP/workstation name: [email or web address]
== END ==
LOC: WI 13:15
PROVIDERS: ATTEND Internal Medicine Nephrology
DX: I12.9 Hypertensive chronic kidney disease with stage 1 through stage 4 chronic kidney disease, or unspecified chronic kidney disease (principal); E11.22 Type 2 diabetes mellitus with diabetic chronic kidney disease; N18.3 Chronic kidney disease, stage 3 (moderate)
CPT/HCPCS: 76770

== ENCOUNTER → 2018-02-25 | Outpatient (CLI) | payer OTHER ==
--- NOTE | 2018-02-25 17:01 | RADIOLOGY REPORT (SQ) ---
EXAM DESCRIPTION: CHEST PA/LATERAL COMPLETED DATE/TIME: 02/25/2018 4:49 pm REASON FOR STUDY: PRE-OP COMPARISON: 08/08/2017. EXAM PARAMETERS: NUMBER OF VIEWS: two views TECHNIQUE: Digital Frontal and Lateral radiographic views of the chest acquired. RADIATION DOSE: NA LIMITATIONS: none FINDINGS: LUNGS AND PLEURA: Mild chronic interstitial changes. No focal infiltrates, masses or pneu mothorax. No pleural effusion. MEDIASTINUM AND HILAR STRUCTURES: No masses or contour abnormalities. HEART AND VASCULAR STRUCTURES: Heart normal size. No evidence for failure. BONES: No acute findings. HARDWARE: None in the chest. OTHER: No other significant finding. IMPRESSION: NO ACUTE RADIOGRAPHIC FINDING IN THE CHEST. TECHNICAL DOCUMENTATION: JOB ID: [id number] [employer]- All Rights Reserved Reading location - IP/workstation name: [email or web address]
[2018-02-25 17:36] LABS: ABSOLUTE BASOPHILS # (AUTO) 0.1 10^3/uL (0.0-0.2); ABSOLUTE EOSINOPHILS # (AUTO) 0.1 10^3/uL (0.0-0.6); ABSOLUTE LYMPHOCYTES (AUTO) 1.7 10^3/uL (0.5-4.7); ABSOLUTE MONOCYTES (AUTO) 0.6 10^3/uL (0.1-1.4); ABSOLUTE NEUT (AUTO) 6.3 10^3/uL (1.7-8.2); BASOPHILS % (AUTO) 0.7 % (0-2); EOSINOPHILS % (AUTO) 1.4 % (0-6); HEMATOCRIT 37.7 % (36.0-47.0); HEMOGLOBIN 12.1 g/dL (12.0-15.5); LYMPHOCYTES % (AUTO) 19.4 % (13-45); MEAN CORPUSCULAR HEMOGLOBIN 28.7 pg (27.0-33.4); MEAN CORPUSCULAR HGB CONC 32.2 g/dL (32.0-36.0); MEAN CORPUSCULAR VOLUME 89 fl (80-97); MONOCYTES % (AUTO) 6.4 % (3-13); PLATELET COUNT 344 10^3/uL (150-450); RED BLOOD COUNT 4.23 10^6/uL (3.72-5.28); RED CELL DISTRIBUTION WIDTH 16.2 % (11.5-14.0); SEGMENTED NEUTROPHILS % (AUTO) 72.1 % (42-78); TOTAL CELLS COUNTED % (AUTO) 100 %; WHITE BLOOD COUNT 8.7 10^3/uL (4.0-10.5)
[2018-02-25 17:59] LABS: ANION GAP 11 (5-19); BLOOD UREA NITROGEN 30 mg/dL (7-20); CALCIUM 9.7 mg/dL (8.4-10.2); CARBON DIOXIDE 32 mmol/L (22-30); CHLORIDE 98 mmol/L (98-107); GLUCOSE 85 mg/dL (75-110); POTASSIUM 4.9 mmol/L (3.6-5.0); SODIUM 141.4 mmol/L (137-145)
[2018-02-25 18:01] LABS: APPEARANCE,URINE SLIGHTLY-CLOUDY; BILIRUBIN,URINE NEGATIVE (NEGATIVE); COLOR,URINE YELLOW; GLUCOSE, URINE NEGATIVE (NEGATIVE); KETONES,URINE NEGATIVE (NEGATIVE); LEUKOCYTE ESTERASE,URINE MODERATE (NEGATIVE); NITRITE,URINE NEGATIVE (NEGATIVE); PROTEIN,URINE NEGATIVE (NEGATIVE); UROBILINOGEN,URINE NEGATIVE mg/dL (<2.0)
--- NOTE | 2018-02-25 19:19 | EKG REPORT ---
SEVERITY:- BORDERLINE ECG - SINUS RHYTHM CONSIDER [facility] : Confirmed by: Kasia Amaro MD 25-Feb-2018 19:18:09
== END ==
LOC: OD 16:14
PROVIDERS: ATTEND Orthopaedic Surgery
DX: Z01.810 Encounter for preprocedural cardiovascular examination (principal); Z01.812 Encounter for preprocedural laboratory examination; Z01.818 Encounter for other preprocedural examination; E11.9 Type 2 diabetes mellitus without complications
CPT/HCPCS: 36415; 71046; 80048; 81001; 83036; 85025; 93005; 93010

== ENCOUNTER 2018-03-23 05:32 | Inpatient (IN) | payer OTHER ==
[~2018-03-23 05:32] MED LIST: BUPIVACAINE INJ/PF LIPOSOME/PF 266 MG/20 ML SDV IJ PRN; CEFAZOLIN INJ 1 GM VIAL IV PRN; IBUPROFEN 800 MG/NS 250 ML IV PRN; LACTATED RINGERS 1000 ML IV PRN; LANSOPRAZOLE 15 MG TAB.RAP.DR PO PRN; LIDOCAINE 0.5% INJ-PF (5 MG/ML) 50 ML SDV SUBCUT PRN; OXYCODONE HCL SR 10 MG TABLET PO PRN; VANCOMYCIN HCL 1,000 MG in DEXTROSE 5%-WATER 250 ML IV PRN
[2018-03-23] MEDS ORDERED: OXYCODONE HCL SR 10 MG TABLET PO ONE (05:46)
[2018-03-23] MEDS ORDERED: LANSOPRAZOLE 15 MG TAB.RAP.DR ONE (05:46)
[2018-03-23] MEDS ORDERED: LIDOCAINE 2% INJ-PF (20 MG/ML) 10 ML AMPUL ONE (06:11)
[2018-03-23] MEDS ORDERED: DEXAMETHASONE SOD PHOSPHATE INJ 4 MG/1 ML VIAL ONE (06:11)
[2018-03-23] MEDS ORDERED: FENTANYL CITRATE INJ/PF 100 MCG/2 ML AMPUL ONE (06:11)
[2018-03-23] MEDS ORDERED: ONDANSETRON HCL INJ/PF 4 MG/2 ML SDV ONE (06:11)
[2018-03-23] MEDS ORDERED: MIDAZOLAM 2 MG/2 ML INJ ONE (06:11)
[2018-03-23] MEDS ORDERED: PROPOFOL INJ 200 MG/20 ML VIAL IV ONE (06:12)
[2018-03-23] MEDS ORDERED: ACETAMINOPHEN 1,000 MG/100 ML RTUPB IV ONE (06:12)
[2018-03-23] MEDS ORDERED: BUPIVACAINE HCL/DEX-WATER/PF 15 MG/2 ML AMPULE ONE (06:22)
[2018-03-23] MEDS ORDERED: CEFAZOLIN INJ 1 GM VIAL ONE (06:34)
[2018-03-23] MEDS ORDERED: THROMBIN (BOVINE) TOPICAL 20000 UNIT VIAL ONE (06:47)
[2018-03-23] MEDS ORDERED: THROMBIN (BOVINE) 5000 UNIT EPITAXIS KIT ONE (06:48)
[2018-03-23] MEDS ORDERED: BUPIVACAINE HCL 0.25% /EPINEPHRINE INJ/PF 30 ML SDV ONE (06:48)
[2018-03-23] MEDS ORDERED: ALBUTEROL SULFATE 0.083% NEB 2.5 MG/3 ML AMPUL NEB STA (06:55)
[2018-03-23] MEDS ORDERED: MORPHINE SULFATE 10 MG/ML INJ IV PRN ×4 (07:53→08:30)
[2018-03-23] MEDS ORDERED: PROMETHAZINE HCL INJ 25 MG/1 ML VIAL IV PRN ×2 (07:53)
[2018-03-23] MEDS ORDERED: MEPERIDINE HCL/PF INJ 25 MG/1 ML DISP.SYRIN IV PRN (07:53)
[2018-03-23] MEDS ORDERED: DIPHENHYDRAMINE HCL 50 MG/ML VIAL IV PRN ×2 (07:53→08:30)
[2018-03-23] MEDS ORDERED: ONDANSETRON HCL INJ/PF 4 MG/2 ML SDV IV PRN ×2 (07:53→08:30)
[2018-03-23] MEDS ORDERED: FENTANYL CITRATE INJ/PF 100 MCG/2 ML AMPUL IV PRN ×3 (07:53)
[2018-03-23] MEDS ORDERED: RINGERS SOLUTION,LACTATED 1,000 ML IV PRN (08:30)
[2018-03-23] MEDS ORDERED: OXYCODONE HCL IR 5 MG TABLET PO PRN (08:30)
[2018-03-23] MEDS ORDERED: ONDANSETRON 4 MG TAB.RAPDIS PO PRN (08:30)
[2018-03-23] MEDS ORDERED: ZOLPIDEM TARTRATE 5 MG TABLET PO PRN (08:30)
[2018-03-23] MEDS ORDERED: MAG HYDROX/AL HYDROX/SIMETH SUSP 30 ML UDCUP PO PRN (08:30)
[2018-03-23] MEDS ORDERED: ACETAMINOPHEN 325 MG TABLET PO PRN (08:30)
--- NOTE | 2018-03-23 08:36 | Operative Report ---
Operative Report DATE OF SURGERY: 03/23/18 PREOPERATIVE DIAGNOSIS: Left knee arthritis OPERATION: Left knee arthroplasty SURGEON: COLLEEN ROBINS ANESTHESIA: Spinal TISSUE REMOVED OR ALTERED: Bone to pathology ESTIMATED BLOOD LOSS: 100 PROCEDURE: Implants used: Femur: Catherine triathlon size 4 CR femur Tibia: 4 tibia Tibial liner: 11 mm CS insert Patella: A 29 mm oval patella Procedure with the patient supine on the operating table the left the limb is prepped and draped in a sterile fashion. The limb was elevated for exsanguination and the tourniquet inflated to 280 torr. A standard midline median parapatellar approach the knee is taken. Access is gained to the femoral canal through the intercondylar notch. Intramedullary alignment instrumentation used to resect 10 mm of distal femur in 5 of valgus. Sizing guide indicated a size 4 femur. Appropriate cutting jig is then used to fashion anterior posterior and chamfer cuts. A trial reduction femurs performed and this is judged to be adequate. Attention was next turned to the tibia. Using an extra medullary alignment system 9 millimeters was resected off the lateral tibial plateau. This is sized to a size 4 tibia. A trial reduction was now performed with a 4 femur and a for tibia using a 11 millimeters spacer. It is full extension and central patellofemoral tracking. The articular surface the patella was next resected using an oscillating saw. All trial implants were removed. Polymethylmethacrylate is mixed and used to cement the above implants in place. On adequate curing the cement excess cement was removed the tourniquet was deflated hemostasis obtained the wound is then closed in layers using interrupted Vicryl followed by lesley. A sterile compressive dressing was applied and the patient returned to recovery room in satisfactory condition.
[2018-03-23] MEDS ORDERED: GLUCAGON,HUMAN RECOMB 1 MG INJ IM PRN (09:15)
[2018-03-23] MEDS ORDERED: DEXTROSE 50%-WATER SYRINGE 25 GM/50 ML DOSE IV PRN (09:15)
[2018-03-23] MEDS ORDERED: INSULIN LISPRO 100 UNIT/ML 3 ML VIAL SUBCUT PRN (09:15)
[2018-03-23] MEDS ORDERED: DEXTROSE 40% GEL 15 GM TUBE PO PRN (09:15)
[2018-03-23] MEDS ORDERED: DEXTROSE 50%-WATER SYRINGE 12.5 GM/25 ML DOSE IV PRN (09:15)
[2018-03-23] MEDS ORDERED: DEXTROSE 40% GEL 15 GM TUBE X 2 PO PRN (09:15)
[2018-03-23] MEDS ORDERED: TRANEXAMIC ACID INJ/PF 1,000 MG/10 ML SDV IV ONE ×2 (09:27→10:00)
--- NOTE | 2018-03-23 09:50 | RADIOLOGY REPORT (SQ) ---
EXAM DESCRIPTION: KNEE LEFT 2 VIEWS COMPLETED DATE/TIME: 03/23/2018 9:18 am REASON FOR STUDY: Post OP -Long Cassette in PACU M17.12 UNILATERAL PRIMARY OSTEOARTHRITIS, LEFT KNE E COMPARISON: None. NUMBER OF VIEWS: Two views TECHNIQUE: Digital radiographic images of the left knee post-procedure. LIMITATIONS: None. FINDINGS: BONES: No worrisome or unexpected findings post-procedure. DEVICE: Left total knee replacement with patellar resurfacing in good alignment SOFT TISSUES: No worrisome findings. Expected postoperative soft tissue changes. IMPRESSION: SATISFACTORY POSTOPERATIVE LEFT KNEE. TECHNICAL DOCUMENTATION: JOB ID: [id number] [employer]- All Rights Reserved Reading location - IP/workstation name: [email or web address]
[2018-03-23] MEDS: MORPHINE SULFATE 10 MG/ML INJ IV PRN ×2 (10:34→14:29)
[2018-03-23] MEDS: ASPIRIN 81 MG TABLET, CHEWABLE PO SCH (11:08)
[2018-03-23] MEDS: IPRATROPIUM/ALBUTEROL 0.5-2.5 MG/3 ML AMPUL NEB SCH ×2 (14:19→20:35)
[2018-03-23] MEDS: FUROSEMIDE 40 MG TABLET PO SCH (17:50)
[2018-03-23] MEDS ORDERED: IBUPROFEN 800 MG in NORMAL SALINE 250 ML IV SCH (18:00)
[2018-03-23] MEDS: MAGNESIUM OXIDE 400 MG TABLET PO SCH (18:25)
[2018-03-23] MEDS: DICYCLOMINE HCL 10 MG CAPSULE PO SCH (18:25)
[2018-03-23] MEDS: IBUPROFEN 800 MG in DEXTROSE 5%-WATER 250 ML IV SCH (18:26)
[2018-03-23] MEDS: SENNOSIDES/DOCUSATE 8.6-50 MG 1 EACH TABLET PO SCH (18:33)
[2018-03-23] MEDS ORDERED: VANCOMYCIN HCL 1,000 MG in DEXTROSE 5%-WATER 250 ML IV ONE (20:31)
[2018-03-23] MEDS: ALBUTEROL SULFATE HFA (90 MCG/PUFF) 200 PUFF/8.5 GM MDI IH SCH ×2 (20:37→23:20)
[2018-03-23] MEDS ORDERED: OXYCODONE HCL SR 10 MG TABLET PO SCH (22:00)
[2018-03-23 23:17] LABS: ARTERIAL BLOOD BASE EXCESS 2.6 mmol/L; ARTERIAL BLOOD FIO2 45; ARTERIAL BLOOD H2CO3 1.86 mmol/L (1.05-1.35); ARTERIAL BLOOD HCO3 30.7 mmol/L (20-24); ARTERIAL BLOOD O2 SATURATION 90.4 % (94-98); ARTERIAL BLOOD PCO2 61.8 mmHg (35-45); ARTERIAL BLOOD PH 7.31 (7.35-7.45); ARTERIAL BLOOD PO2 64.9 mmHg (80-100); ARTERIAL BLOOD TOTAL CO2 32.6 mmol/L (21-25)
[2018-03-23] MEDS: CARVEDILOL 3.125 MG TABLET PO SCH (23:20)
[2018-03-23] MEDS: ATORVASTATIN CALCIUM 10 MG TABLET PO SCH (23:27)
[2018-03-23] MEDS: PRAMIPEXOLE DI-HCL 0.25 MG TABLET PO SCH (23:27)
[2018-03-23] MEDS: FLUTICASONE NASAL SPRAY 50 MCG/SPRY 120 SPRAY/16 GM NASL SCH (23:28)
[2018-03-24] MEDS: IBUPROFEN 800 MG in DEXTROSE 5%-WATER 250 ML IV SCH ×3 (02:16→17:02)
[2018-03-24] MEDS: ALBUTEROL SULFATE HFA (90 MCG/PUFF) 200 PUFF/8.5 GM MDI IH SCH ×6 (02:17→22:59)
[2018-03-24] MEDS: IPRATROPIUM/ALBUTEROL 0.5-2.5 MG/3 ML AMPUL NEB SCH ×4 (03:02→20:20)
[2018-03-24 03:26] LABS: ARTERIAL BLOOD BASE EXCESS 3.3 mmol/L; ARTERIAL BLOOD H2CO3 1.97 mmol/L (1.05-1.35); ARTERIAL BLOOD HCO3 31.3 mmol/L (20-24); ARTERIAL BLOOD O2 SATURATION 88.5 % (94-98); ARTERIAL BLOOD PCO2 65.6 mmHg (35-45); ARTERIAL BLOOD PO2 61.8 mmHg (80-100); ARTERIAL BLOOD TOTAL CO2 33.3 mmol/L (21-25)
[2018-03-24 03:31] LABS: ARTERIAL BLOOD FIO2 45%
[2018-03-24] MEDS ORDERED: NALOXONE HCL INJ/PF 0.4 MG/1 ML SDV IV ONE (05:16)
[2018-03-24] MEDS ORDERED: NALOXONE HCL INJ/PF 0.4 MG/1 ML SDV ONE (05:23)
[2018-03-24] MEDS: LANSOPRAZOLE 30 MG TAB.RAP.DR PO SCH (05:56)
--- NOTE | 2018-03-24 06:07 | RADIOLOGY REPORT (SQ) ---
EXAM DESCRIPTION: XR CHEST 1 VIEW COMPLETED DATE/TME: 03/23/2018 00:00 CLINICAL HISTORY: 62 years, Female, sob cough COMPARISON: 02/25/2018 chest x-ray NUMBER OF VIEWS: 1 TECHNIQUE: Portable chest LIMITATIONS: None. FINDINGS: Heart size at the upper limits of normal. Osteopenia. Lungs are hyperinflated but clear. No pneumothorax IMPRESSION: Underlying hyperinflation. No acute cardiopulmonary process 2010 [employer]- All Rights Reserved
--- NOTE | 2018-03-24 06:31 | PDOC CONSULTATION ---
Consultation Consult Date: 03/23/18 Attending physician:: COLLEEN ROBINS Consult reason:: Shortness of breath History of Present Illness Admission Date/PCP: 03/23/18 05:32 GEO COTE MD Patient complains of: Shortness of breath History of Present Illness: JIMMY SCHRADER is a 62 year old female with a past medical history of COPD, morbid obesity, obstructive sleep apnea, and diastolic heart failure. Patient was admitted for surgery of the left knee and is postop day 0. Nursing staff describes oxygen saturations in the 80s and hypotension of 99/70. Patient is sedated but awake denying chest pain shortness of breath nausea vomiting or knee pain. Patient's home CPAP is at bedside but nonfunctional. Patient is placed on BiPAP, narcotics discontinued, ABG and chest x-ray ordered. Past Medical History Cardiac Medical History: Reports: Congestive Heart Failure - Diastolic congestive heart failure, Hyperlipidema, Hypertension Denies: Atrial Fibrillation, Coronary Artery Disease, Myocardial Infarction, Peripheral Vascular Disease, Pulmonary Embolism, Heart Murmur Pulmonary Medical History: Reports: Asthma, Bronchitis, Chronic Obstructive Pulmonary Disease (COPD) - ON 4L O2 AT HOME, Sleep Apnea - CPAP Denies: Pneumonia, Respiratory Failure, Tuberculosis Neurological Medical History: Denies: Seizures Endocrine Medical History: Reports: Diabetes Mellitus Type 2, Hyperthyroidism Denies: Hypothyroidism Renal/ Medical History: Denies: End Stage Renal Disease Malignancy Medical History: Denies: Lung Cancer GI Medical History: Reports: Gastroesophageal Reflux Disease Denies: Crohn's Disease, Hepatitis, Hiatal Hernia Musculoskeltal Medical History: Reports: Arthritis - FOZIA KNEES Denies: Fibromyalgia Psychiatric Medical History: Denies: Bipolar Disorder, Depression, Post Traumatic Stress Disorder Hematology: Denies: Anemia, Sickle Cell Disease Past Surgical History Past Surgical History: Reports: Hysterectomy Denies: Amputation, Appendectomy, Section, Cholecystectomy, Colostomy, Coronary Artery Bypass Graft, Gastric Bypass Surgery, Herniorrhaphy, Mastectomy, Pacemaker, Tonsillectomy, Tubal Ligation Social History Information Source: Patient, [facility] Records Smoking Status: Former Smoker Frequency of Alcohol Use: None Hx Recreational Drug Use: No Drugs: None Hx Prescription Drug Abuse: No - Advance Directive Resuscitation Status: Full Code Family History Family History: COPD, DM, Hypertension Parental Family History Reviewed: No Children Family History Reviewed: No Sibling(s) Family History Reviewed.: No Medication/Allergy Home Medications: Albuterol Sulfate [Proair HFA Inhalation Aerosol 8.5 gm MDI] 1 puff IH Q4 Aspirin [Aspirin 81 mg Chewable Tablet] 81 mg PO DAILY 07/02/17 Atorvastatin Calcium [Lipitor 10 mg Tablet] 10 mg PO QHS 07/02/17 Carvedilol [Coreg 3.125 mg Tablet] 3.125 mg PO Q12 07/02/17 Cholecalciferol (Vitamin D3) [Vitamin D3 5000 unit Capsule] 5,000 unit PO DAILY 07/02/17 Fluticasone Propionate [Flonase Nasal [place] 50 Mcg/[place] 16 gm] 1 spray NASL Q12 07/02/17 Furosemide [Lasix 40 mg Tablet] 40 mg PO BID 07/02/17 Ibandronate Sodium [Boniva] 150 mg PO .MONTHLY 07/02/17 Magnesium Oxide [Mag-Ox 400 mg Tablet] 400 mg PO BID 07/02/17 Metformin HCl [Glucophage] 500 mg PO DAILY 07/02/17 Pantoprazole Sodium [Protonix] 40 mg PO DAILY 07/02/17 Pramipexole Di-HCl [Mirapex 0.25 mg Tablet] 0.25 mg PO QHS 07/02/17 Ipratropium/Albuterol Sulfate [Duoneb 3 ml Ampul] 3 ml [facility] RTQ6 #4 vial.[facility] 01/13 Lisinopril [Prinivil 10 mg Tablet] 10 mg PO DAILY #30 tablet 07/04/17 Dicyclomine HCl [Bentyl 10 mg Capsule] 10 mg PO BID 03/12/18 Montelukast Sodium [Singulair 10 mg Tablet] 10 mg PO DAILY 03/12/18 Allergies/Adverse Reactions: No Known Allergies Allergy (Verified 03/12/18 12:49) Review of Systems ROS unobtainable: Due to mental status - Sedated Physical Exam Vital Signs: Temp Pulse Resp BP Pulse Ox 98.1 F 88 15 102/51 L 90 L 03/24/18 00:00 03/24/18 02:55 03/24/18 04:18 03/24/18 00:00 03/24/18 02:55 Intake & Output 03/22/18 03/23/18 03/24/18 11:59 11:59 11:59 Intake Total 2950 800 Output Total 2500 Balance 450 800 General appearance: PRESENT: cooperative, mild distress, obese Head exam: PRESENT: atraumatic, normocephalic Eye exam: PRESENT: conjunctiva pink, EOMI, PERRLA. ABSENT: scleral icterus Ear exam: PRESENT: normal external ear exam Mouth exam: PRESENT: moist, tongue midline Neck exam: ABSENT: carotid bruit, JVD, lymphadenopathy, thyromegaly Respiratory exam: PRESENT: crackles, prolonged expiratory phas. ABSENT: rales, rhonchi, wheezes Cardiovascular exam: PRESENT: RRR. ABSENT: diastolic murmur, rubs, systolic murmur Pulses: PRESENT: normal dorsalis pedis pul Vascular exam: PRESENT: normal capillary refill GI/Abdominal exam: PRESENT: normal bowel sounds, soft. ABSENT: distended, guarding, mass, organolmegaly, rebound, tenderness Rectal exam: PRESENT: deferred Extremities exam: PRESENT: full ROM. ABSENT: calf tenderness, clubbing, pedal edema Neurological exam: PRESENT: altered, awake, oriented to person, oriented to place, oriented to time, oriented to situation, CN II-XII grossly intact. ABSENT: motor sensory deficit Psychiatric exam: PRESENT: flat affect Skin exam: PRESENT: dry, intact, warm. ABSENT: cyanosis, rash Results Laboratory Results: 03/23/18 05:53 03/23/18 03/24/18 22:34 02:55 Carbonic Acid 1.86 H 1.97 H HCO3/H2CO3 Ratio 16:1 15:1 ABG pH 7.31 L 7.30 L ABG pCO2 61.8 H 65.6 H ABG pO2 64.9 L 61.8 L ABG HCO3 30.7 H 31.3 H ABG O2 Saturation 90.4 L 88.5 L ABG Base Excess 2.6 3.3 FiO2 45 45% Impressions: Chest X-Ray 03/23/18 00:00 IMPRESSION: Underlying hyperinflation. No acute cardiopulmonary process 2010 [employer]- All Rights Reserved Knee X-Ray 03/23/18 08:33 IMPRESSION: SATISFACTORY POSTOPERATIVE LEFT KNEE. Assessment & Plan - Diagnosis (1) Acute and chronic respiratory failure with hypoxia Is this a current diagnosis for this admission?: Yes Plan: Exacerbation of the above secondary to reduction in respiratory drive following analgesic of surgery, BiPAP, supplemental oxygen, incentive spirometry and Narcan initiated, follow-up chest x-ray and ABG. (2) LAUREL treated with BiPAP Is this a current diagnosis for this admission?: Yes Plan: BiPAP ordered, limit narcotics given reduction in respiratory drive - Time Time Spent: 30 to 50 Minutes
[2018-03-24 06:51] LABS: HEMATOCRIT 30.8 % (36.0-47.0); MEAN CORPUSCULAR HEMOGLOBIN 28.5 pg (27.0-33.4); MEAN CORPUSCULAR HGB CONC 32.4 g/dL (32.0-36.0); MEAN CORPUSCULAR VOLUME 88 fl (80-97); PLATELET COUNT 206 10^3/uL (150-450); RED CELL DISTRIBUTION WIDTH 15.6 % (11.5-14.0); WHITE BLOOD COUNT 10.3 10^3/uL (4.0-10.5)
--- NOTE | 2018-03-24 07:07 | PDOC PROGRESS REPORT ---
Subjective Progress Note for:: 03/24/18 Reason For Visit: M17.12 UNILATERAL PRIMARY OSTEOARTHRITIS, LEFT KNE 62-year-old white female postop day 1 left knee arthroplasty. Patient's postoperative course was notable for for hypoxia, limited progress with physical therapy, and complains of inadequate analgesia. Physical Exam Vital Signs: Temp Pulse Resp BP Pulse Ox 36.7 C 88 15 102/51 L 90 L 03/24/18 00:00 03/24/18 02:55 03/24/18 04:18 03/24/18 00:00 03/24/18 02:55 Intake & Output 03/23/18 03/24/18 03/25/18 06:59 06:59 06:59 Intake Total 0 4187 Output Total 2500 Balance 0 1687 Physical Exam: Obese middle-aged white female lying in hospital bed in a BiPAP machine General appearance: PRESENT: mild distress, obese Head exam: PRESENT: normocephalic Respiratory exam: PRESENT: unlabored Cardiovascular exam: PRESENT: RRR Pulses: PRESENT: +1 pedal pulses bilateral Vascular exam: PRESENT: normal capillary refill GI/Abdominal exam: PRESENT: soft Rectal exam: PRESENT: deferred Extremities exam: PRESENT: other - Left lower extremity in compression dressing. Minor drainage laterally. Distal neurovascular examination is intact. Neurological exam: PRESENT: alert, awake, oriented to person, oriented to place , oriented to time, oriented to situation. ABSENT: motor sensory deficit Psychiatric exam: PRESENT: appropriate affect, normal mood. ABSENT: homicidal ideation, suicidal ideation Skin exam: PRESENT: dry, intact, warm. ABSENT: cyanosis, rash Results Laboratory Results: 03/24/18 06:38 03/23/18 03/24/18 03/24/18 22:34 02:55 06:38 WBC 10.3 RBC 3.50 L Hgb 10.0 L Hct 30.8 L MCV 88 MCH 28.5 MCHC 32.4 RDW 15.6 H Plt Count 206 Carbonic Acid 1.86 H 1.97 H HCO3/H2CO3 Ratio 16:1 15:1 ABG pH 7.31 L 7.30 L ABG pCO2 61.8 H 65.6 H ABG pO2 64.9 L 61.8 L ABG HCO3 30.7 H 31.3 H ABG O2 Saturation 90.4 L 88.5 L ABG Base Excess 2.6 3.3 FiO2 45 45% Impressions: Chest X-Ray 03/23/18 00:00 IMPRESSION: Underlying hyperinflation. No acute cardiopulmonary process 2010 [employer]- All Rights Reserved Knee X-Ray 03/23/18 08:33 IMPRESSION: SATISFACTORY POSTOPERATIVE LEFT KNEE. Status: Imported from PACS Assessment & Plan - Diagnosis (1) Arthritis of left knee Is this a current diagnosis for this admission?: Yes Plan: Plan will be to mobilize with physical therapy today. Analgesia will be made available more frequently. - Time Time Spent with patient: 15-24 minutes Anticipated discharge: Home with Homehealth Within: within 24 hours
[2018-03-24 07:14] LABS: ANION GAP 7 (5-19); BLOOD UREA NITROGEN 22 mg/dL (7-20); CALCIUM 9.1 mg/dL (8.4-10.2); CARBON DIOXIDE 32 mmol/L (22-30); CHLORIDE 101 mmol/L (98-107); GLUCOSE 117 mg/dL (75-110); POTASSIUM 4.5 mmol/L (3.6-5.0); SODIUM 139.9 mmol/L (137-145)
[2018-03-24] MEDS: MORPHINE SULFATE 10 MG/ML INJ IV PRN ×2 (09:20→15:37)
[2018-03-24] MEDS ORDERED: OXYCODONE HCL IR 5 MG TABLET PO PRN (09:22)
[2018-03-24] MEDS: MONTELUKAST SODIUM 10 MG TABLET PO SCH (09:27)
[2018-03-24] MEDS: PRENATAL VITAMIN W DHA CAPSULE PO SCH (09:28)
[2018-03-24] MEDS: METFORMIN HCL 500 MG TABLET PO SCH (09:28)
[2018-03-24] MEDS: SENNOSIDES/DOCUSATE 8.6-50 MG 1 EACH TABLET PO SCH ×2 (09:28→17:03)
[2018-03-24] MEDS: MAGNESIUM OXIDE 400 MG TABLET PO SCH ×2 (09:28→17:03)
[2018-03-24] MEDS: ASPIRIN 81 MG TABLET, CHEWABLE PO SCH (09:28)
[2018-03-24] MEDS: FLUTICASONE NASAL SPRAY 50 MCG/SPRY 120 SPRAY/16 GM NASL SCH ×2 (09:29→22:57)
[2018-03-24] MEDS: DICYCLOMINE HCL 10 MG CAPSULE PO SCH ×2 (09:29→17:03)
[2018-03-24] MEDS: CHOLECALCIFEROL (D3) 1,000 UNIT TABLET PO SCH (09:30)
[2018-03-24] MEDS: CARVEDILOL 3.125 MG TABLET PO SCH ×2 (16:28→22:52)
[2018-03-24] MEDS: FUROSEMIDE 40 MG TABLET PO SCH ×2 (16:28→17:07)
[2018-03-24] MEDS: LISINOPRIL 10 MG TABLET PO SCH (16:29)
--- NOTE | 2018-03-24 19:14 | PDOC PROGRESS REPORT ---
Subjective Progress Note for:: 03/24/18 Subjective:: Patient says she is doing better Reason For Visit: M17.12 UNILATERAL PRIMARY OSTEOARTHRITIS, LEFT KNE Physical Exam Vital Signs: Temp Pulse Resp BP Pulse Ox 97.8 F 99 20 99/62 L 94 03/24/18 16:04 03/24/18 16:04 03/24/18 16:04 03/24/18 16:04 03/24/18 16:04 Intake & Output 03/23/18 03/24/18 03/25/18 06:59 06:59 06:59 Intake Total 0 4187 1387 Output Total 2500 Balance 0 1687 1387 General appearance: PRESENT: no acute distress, well-developed, well-nourished Head exam: PRESENT: atraumatic, normocephalic Eye exam: PRESENT: conjunctiva pink, EOMI, PERRLA. ABSENT: scleral icterus Ear exam: PRESENT: normal external ear exam Mouth exam: PRESENT: moist, tongue midline Neck exam: ABSENT: carotid bruit, JVD, lymphadenopathy, thyromegaly Respiratory exam: PRESENT: clear to auscultation alysia. ABSENT: rales, rhonchi, wheezes Cardiovascular exam: PRESENT: RRR. ABSENT: diastolic murmur, rubs, systolic murmur Pulses: PRESENT: normal dorsalis pedis pul Vascular exam: PRESENT: normal capillary refill GI/Abdominal exam: PRESENT: normal bowel sounds, soft. ABSENT: distended, guarding, mass, organolmegaly, rebound, tenderness Rectal exam: PRESENT: deferred Extremities exam: PRESENT: full ROM. ABSENT: calf tenderness, clubbing, pedal edema Musculoskeletal exam: PRESENT: other - swollen Left knee Neurological exam: PRESENT: alert, awake, oriented to person, oriented to place , oriented to time, oriented to situation, CN II-XII grossly intact. ABSENT: motor sensory deficit Psychiatric exam: PRESENT: appropriate affect, normal mood. ABSENT: homicidal ideation, suicidal ideation Skin exam: PRESENT: dry, intact, warm. ABSENT: cyanosis, rash Results Laboratory Results: 03/24/18 06:38 03/24/18 06:38 03/23/18 03/24/18 03/24/18 22:34 02:55 06:38 WBC 10.3 RBC 3.50 L Hgb 10.0 L Hct 30.8 L MCV 88 MCH 28.5 MCHC 32.4 RDW 15.6 H Plt Count 206 Carbonic Acid 1.86 H 1.97 H HCO3/H2CO3 Ratio 16:1 15:1 ABG pH 7.31 L 7.30 L ABG pCO2 61.8 H 65.6 H ABG pO2 64.9 L 61.8 L ABG HCO3 30.7 H 31.3 H ABG O2 Saturation 90.4 L 88.5 L ABG Base Excess 2.6 3.3 FiO2 45 45% Sodium Potassium Chloride Carbon Dioxide Anion Gap BUN Creatinine Est GFR ( Amer) Est GFR (Non-Af Amer) Glucose Calcium 03/24/18 06:38 WBC RBC Hgb Hct MCV MCH MCHC RDW Plt Count Carbonic Acid HCO3/H2CO3 Ratio ABG pH ABG pCO2 ABG pO2 ABG HCO3 ABG O2 Saturation ABG Base Excess FiO2 Sodium 139.9 Potassium 4.5 Chloride 101 Carbon Dioxide 32 H Anion Gap 7 BUN 22 H Creatinine 0.93 Est GFR ( Amer) > 60 Est GFR (Non-Af Amer) > 60 Glucose 117 H Calcium 9.1 Impressions: Chest X-Ray 03/23/18 00:00 IMPRESSION: Underlying hyperinflation. No acute cardiopulmonary process 2010 [employer]- All Rights Reserved Knee X-Ray 03/23/18 08:33 IMPRESSION: SATISFACTORY POSTOPERATIVE LEFT KNEE. Assessment & Plan - Diagnosis (1) Arthritis of left knee Is this a current diagnosis for this admission?: Yes Plan: Further management per Ortho (2) Type 2 diabetes mellitus Qualifiers: Diabetes mellitus usp insulin use: without manager terminal use Diabetes mellitus complication status: with unspecified complications Qualified Code(s) : E11.8 - Type 2 diabetes mellitus with unspecified complications Is this a current diagnosis for this admission?: Yes - Time Time Spent with patient: 15-24 minutes Medications reviewed and adjusted accordingly: Yes Anticipated discharge: Acute Rehab - Inpatient Certification Based on my medical assessment, after consideration of the patient's comorbidities, presenting symptoms, or acuity I expect that the services needed warrant INPATIENT care.: Yes
[2018-03-24] MEDS: ATORVASTATIN CALCIUM 10 MG TABLET PO SCH (22:57)
[2018-03-24] MEDS: PRAMIPEXOLE DI-HCL 0.25 MG TABLET PO SCH (22:57)
[2018-03-25] MEDS: IPRATROPIUM/ALBUTEROL 0.5-2.5 MG/3 ML AMPUL NEB SCH ×2 (02:20→08:09)
[2018-03-25] MEDS: IBUPROFEN 800 MG in DEXTROSE 5%-WATER 250 ML IV SCH ×3 (02:44→10:28)
[2018-03-25] MEDS: ALBUTEROL SULFATE HFA (90 MCG/PUFF) 200 PUFF/8.5 GM MDI IH SCH ×3 (02:46→10:26)
[2018-03-25 05:01] LABS: HEMOGLOBIN 9.4 g/dL (12.0-15.5); MEAN CORPUSCULAR HEMOGLOBIN 28.8 pg (27.0-33.4); MEAN CORPUSCULAR HGB CONC 32.5 g/dL (32.0-36.0); MEAN CORPUSCULAR VOLUME 89 fl (80-97); PLATELET COUNT 191 10^3/uL (150-450); RED BLOOD COUNT 3.27 10^6/uL (3.72-5.28); RED CELL DISTRIBUTION WIDTH 15.5 % (11.5-14.0); WHITE BLOOD COUNT 7.6 10^3/uL (4.0-10.5)
[2018-03-25] MEDS: LANSOPRAZOLE 30 MG TAB.RAP.DR PO SCH (06:12)
--- NOTE | 2018-03-25 08:48 | PDOC DISCHARGE SUMMARY ---
General - Admit/Disc Date/PCP Admission Date/Primary Care Provider: 03/23/18 05:32 GEO COTE MD Discharge Date: 03/25/18 - Discharge Diagnosis (1) Arthritis of left knee Is this a current diagnosis for this admission?: Yes - Additional Information Resuscitation Status: Full Code Home Medications: Albuterol Sulfate [Proair HFA Inhalation Aerosol 8.5 gm MDI] 1 puff IH Q4 Aspirin [Aspirin 81 mg Chewable Tablet] 81 mg PO DAILY 07/02/17 Atorvastatin Calcium [Lipitor 10 mg Tablet] 10 mg PO QHS 07/02/17 Carvedilol [Coreg 3.125 mg Tablet] 3.125 mg PO Q12 07/02/17 Cholecalciferol (Vitamin D3) [Vitamin D3 5000 unit Capsule] 5,000 unit PO DAILY 07/02/17 Fluticasone Propionate [Flonase Nasal [place] 50 Mcg/[place] 16 gm] 1 spray NASL Q12 07/02/17 Furosemide [Lasix 40 mg Tablet] 40 mg PO BID 07/02/17 Ibandronate Sodium [Boniva] 150 mg PO .MONTHLY 07/02/17 Magnesium Oxide [Mag-Ox 400 mg Tablet] 400 mg PO BID 07/02/17 Metformin HCl [Glucophage] 500 mg PO DAILY 07/02/17 Pantoprazole Sodium [Protonix] 40 mg PO DAILY 07/02/17 Pramipexole Di-HCl [Mirapex 0.25 mg Tablet] 0.25 mg PO QHS 07/02/17 Ipratropium/Albuterol Sulfate [Duoneb 3 ml Ampul] 3 ml [facility] RTQ6 #4 vial.[facility] 01/13 Lisinopril [Prinivil 10 mg Tablet] 10 mg PO DAILY #30 tablet 07/04/17 Dicyclomine HCl [Bentyl 10 mg Capsule] 10 mg PO BID 03/12/18 Montelukast Sodium [Singulair 10 mg Tablet] 10 mg PO DAILY 03/12/18 History of Present Illness History of Present Illness: JIMMY SCHRADER is a 62 year old female The patient is a 62-year-old white female with progressive left knee pain and functional disability second osteoarthritis. She also has comorbid condition of significant pulmonary compromise. She is admitted for elective left knee arthroplasty. Hospital Course Hospital Course: Patient is admitted through the operating room where she undergoes uncomplicated left knee arthroplasty. She tolerates the procedure without complication. She is returned to floor in satisfactory condition. She seen by physical therapy and makes reasonable progress with them in terms of weightbearing as tolerated ambulation. Her limiting factor is not her knee but is her pulmonary condition. She is maintained on BiPAP to maintain an oxygen saturation level of greater than 90%. Patient feels that this is her baseline pulmonary function. Physical Exam Vital Signs: Temp Pulse Resp BP Pulse Ox 36.9 C 109 H 18 104/58 L 90 L 03/25/18 07:06 03/25/18 08:10 03/25/18 08:10 03/25/18 07:06 03/25/18 08:10 Intake & Output 03/24/18 03/25/18 03/26/18 06:59 06:59 06:59 Intake Total 4187 1719 250 Output Total 2500 Balance 1687 1719 250 Weight 96.1 kg Physical Exam: Overweight if not obese middle-aged white female lying in a hospital bed. There is no evidence of labored breathing or tachypnea. General appearance: PRESENT: obese, well-nourished Head exam: PRESENT: normocephalic Respiratory exam: PRESENT: unlabored Cardiovascular exam: PRESENT: RRR Pulses: PRESENT: +1 pedal pulses bilateral Vascular exam: PRESENT: normal capillary refill GI/Abdominal exam: PRESENT: soft Rectal exam: PRESENT: deferred Extremities exam: PRESENT: other - Left lower extremity dressing is changed on postop day 2. Wound is well approximated, is clean and dry. There is minimal surrounding ecchymosis and induration. There is minimal pedal edema. Distal neurovascular examination is intact. Neurological exam: PRESENT: alert, awake, oriented to person, oriented to place , oriented to time, oriented to situation. ABSENT: motor sensory deficit Psychiatric exam: PRESENT: appropriate affect, normal mood. ABSENT: homicidal ideation, suicidal ideation Skin exam: PRESENT: dry, intact, warm. ABSENT: cyanosis, rash Results Laboratory Results: 03/25/18 04:26 03/24/18 06:38 03/25/18 04:26 WBC 7.6 RBC 3.27 L Hgb 9.4 L Hct 29.0 L MCV 89 MCH 28.8 MCHC 32.5 RDW 15.5 H Plt Count 191 Impressions: Chest X-Ray 03/23/18 00:00 IMPRESSION: Underlying hyperinflation. No acute cardiopulmonary process 2010 [employer]- All Rights Reserved Knee X-Ray 03/23/18 08:33 IMPRESSION: SATISFACTORY POSTOPERATIVE LEFT KNEE. Status: Imported from PACS Qualifiers - * PATIENT BEING DISCHARGED WITH ANY OF THE FOLLOWING DIAGNOSIS: No VTE patient discharged on overlapping Therapy?: Yes Plan Discharge Plan: Patient to be discharged home with home health services and DME. Follow-up with Dr. Hernandez and [facility] for surgery in 2 weeks for staple removal. Time Spent: Less than 30 Minutes
[2018-03-25] MEDS: DICYCLOMINE HCL 10 MG CAPSULE PO SCH (09:32)
[2018-03-25] MEDS: MAGNESIUM OXIDE 400 MG TABLET PO SCH (09:32)
[2018-03-25] MEDS: CHOLECALCIFEROL (D3) 1,000 UNIT TABLET PO SCH (09:32)
[2018-03-25] MEDS: FLUTICASONE NASAL SPRAY 50 MCG/SPRY 120 SPRAY/16 GM NASL SCH (09:33)
[2018-03-25] MEDS: PRENATAL VITAMIN W DHA CAPSULE PO SCH (09:33)
[2018-03-25] MEDS: MONTELUKAST SODIUM 10 MG TABLET PO SCH (09:33)
[2018-03-25] MEDS: METFORMIN HCL 500 MG TABLET PO SCH (09:33)
[2018-03-25] MEDS: ASPIRIN 81 MG TABLET, CHEWABLE PO SCH (09:33)
[2018-03-25] MEDS: SENNOSIDES/DOCUSATE 8.6-50 MG 1 EACH TABLET PO SCH (09:33)
[2018-03-25] MEDS: CARVEDILOL 3.125 MG TABLET PO SCH (11:59)
[2018-03-25] MEDS: FUROSEMIDE 40 MG TABLET PO SCH (12:00)
[2018-03-25] MEDS: LISINOPRIL 10 MG TABLET PO SCH (12:00)
[2018-03-25 12:31] VITALS: BP 92/61
== END 2018-03-25 12:29 | disposition home health service (06) | DRG 469 ==
LOC: INOR 05:32 → 4S 09:53
PROVIDERS: ADMIT Orthopaedic Surgery; ATTEND Orthopaedic Surgery
PROC: 5A09457 Assistance with Respiratory Ventilation, 24-96 Consecutive Hours, Continuous Positive Airway Pressure (ICD-10-PCS; 2018-03-23)
PROC: 0SRD0J9 Replacement of Left Knee Joint with Synthetic Substitute, Cemented, Open Approach (ICD-10-PCS; principal; 2018-03-23 07:30)
DX: M17.12 Unilateral primary osteoarthritis, left knee (principal); J96.21 Acute and chronic respiratory failure with hypoxia; I50.32 Chronic diastolic (congestive) heart failure; Y92.230 Patient room in hospital as the place of occurrence of the external cause; T39.95XA Adverse effect of unspecified nonopioid analgesic, antipyretic and antirheumatic, initial encounter; K21.9 Gastro-esophageal reflux disease without esophagitis; E78.5 Hyperlipidemia, unspecified; E11.9 Type 2 diabetes mellitus without complications; G47.30 Sleep apnea, unspecified; E05.90 Thyrotoxicosis, unspecified without thyrotoxic crisis or storm; J44.9 Chronic obstructive pulmonary disease, unspecified; I11.0 Hypertensive heart disease with heart failure; E66.01 Morbid (severe) obesity due to excess calories; G47.33 Obstructive sleep apnea (adult) (pediatric); Z99.81 Dependence on supplemental oxygen; Z79.84 Long term (current) use of oral hypoglycemic drugs; Z90.710 Acquired absence of both cervix and uterus; Z87.891 Personal history of nicotine dependence; Z82.49 Family history of ischemic heart disease and other diseases of the circulatory system; Z79.899 Other long term (current) drug therapy; Z79.82 Long term (current) use of aspirin
CPT/HCPCS: 01402; 36415; 36600; 71045; 80048; 82803; 82962; 84132; 85027; 88304; 88311; 94640; 94660; 94799; C1713; C1776; J0131; J0690; J1100; J1741; J2250; J2270; J2310; J2405; J2704; J3010; J3370; J3490; J7050; J7060; J7120; J7620; S0119

== ENCOUNTER → 2018-05-18 | Outpatient (CLI) | payer OTHER ==
--- NOTE | 2018-05-18 11:42 | WOMENS IMAGING REPORT ---
EXAM DESCRIPTION: BONE DENSITY HIP/SPINE COMPLETED DATE/TIME: 05/18/2018 10:18 am REASON FOR STUDY: BONE DENSITY M81.0 Z12.31 ENCNTR SCREEN MAMMOGRAM FOR MALIGNANT NEOPLASM OF BRYCE M 81.0 AGE-RELATED OSTEOPOROSIS W/O CURRENT PATHOLOGICAL FRAC COMPARISON: None. TECHNIQUE: Dual-Energy X-ray Absorptiometry (DEXA) of the AP Spine and Hip. LIMITATIONS: None. FINDINGS: LUMBAR SPINE: The bone mineral density (BMD) measured from L1-L4 in the AP projection correlates with a T-score of -1.9, which is osteopenia as defined by the World Health Organization. HIP: The bone mineral density (BMD) measured in the left hip correlates with a T-score of -1.3, which is o steopenia as defined by the World Health Organization. IMPRESSION: 1. LUMBAR SPINE: Osteopenia 2. HIP: Osteopenia COMMENT: The World Health Organization defines low BMD as follows: T-score: Normal: Greater than -1.0 Osteopenia: Between -1.0 and -2.5 Osteoporosis: Less than -2.5 without fractures Established osteoporosis: Less than -2.5 with fractures In general, you may wish to consider: Diagnosis Treatment Follow-up DEXA Normal BMD Prevention 2-3 years Osteopenia Prevention/Therapy 1-2 years Osteoporosis Therapy Yearly TECHNICAL DOCUMENTATION: JOB ID: [id number]- All Rights Reserved Reading location - IP/workstation name: [email or web address]
--- NOTE | 2018-05-18 17:04 | WOMENS IMAGING REPORT ---
EXAM DESCRIPTION: BILAT SCREENING MAMMO W/CAD COMPLETED DATE/TIME: 05/18/2018 10:18 am REASON FOR STUDY: ROUTINE BILATERAL SCREENING, Z12.31 Z12.31 ENCNTR SCREEN MAMMOGRAM FOR MALIGNANT NEOPLASM OF BRYCE M81.0 AGE-RELATED OSTEOPOROSIS W/O CURRENT PATHOLOGICAL FRAC COMPARISON: Multiple since 2008 TECHNIQUE: Standard craniocaudal and mediolateral oblique views of each breast recorded using digita l acquisition. LIMITATIONS: None. FINDINGS: No masses, calcifications or architectural distortion. No areas of suspicion. Read with the assistance of CAD. .[facility] - R2 [employer] Version 1.3 .[facility] - R2 Cenova Version 1.3 .[facility] - R2 Cenova Version 2.4 .[facility] - R2 Cenova Version 2.4 .[facility] - R2 [employer] Version 9.2 IMPRESSION: NORMAL MAMMOGRAM. BIRADS 1. BREAST DENSITY: a. The breasts are almost entirely fatty. BIRAD: 1 NEGATIVE RECOMMENDATION: ROUTINE SCREENING COMMENT: The patient has been notified of the results by letter per MQSA requirements. Additional no tification policies are in place for contacting patient with suspicious or incomplete findings. Quality ID #225: The [employer] recommends an annual screening mammogram for women aged 40 years or over. This facility utilizes a reminder system to ensure that all patients receive reminder letters, and/or direct phone calls for appointments. This includes reminders for routine scr eening mammograms, diagnostic mammograms, or other Breast Imaging Interventions when appropriate. Th is patient will be placed in the appropriate reminder system. The [employer] (ACR) has developed recommendations for screening MRI of the breast s in certain patient populations, to be used in conjunction with mammography. Breast MRI surveillanc e may be appropriate for women with more than 20% lifetime risk of developing breast cancer as deter mined by genetic testing, significant family history of the disease, or history of mantle radiation f or Hodgkins Disease. ACR Practice Guidelines 2008. TECHNICAL DOCUMENTATION: FINDING NUMBER: (1) ASSESSMENT: (1) JOB ID: [id number] [employer]- All Rights Reserved Reading location - IP/workstation name: [email or web address]
== END ==
LOC: WI 09:48
PROVIDERS: ATTEND Physician Assistant
DX: Z12.31 Encounter for screening mammogram for malignant neoplasm of breast (principal); M81.0 Age-related osteoporosis without current pathological fracture
CPT/HCPCS: 77067; 77080

== ENCOUNTER → 2019-05-28 | Outpatient (CLI) | payer OTHER ==
--- NOTE | 2019-05-31 11:38 | WOMENS IMAGING REPORT ---
EXAM DESCRIPTION: BILAT SCREENING MAMMO W/CAD COMPLETED DATE/TIME: 05/28/2019 2:38 pm REASON FOR STUDY: Z12.31 SCREENING MAMMO Z12.31 ENCNTR SCREEN MAMMOGRAM FOR MALIGNANT NEOPLASM OF B RE COMPARISON: 2014 and subsequent EXAM PARAMETERS: Standard craniocaudal and mediolateral oblique views of each breast recorded using digital acquisition. Read with the assistance of CAD. .[facility] - [employer] Manager Version 9.2 LIMITATIONS: None. FINDINGS: No suspicious masses, suspicious calcifications or architectural distortion. No areas of c oncern. IMPRESSION: Negative MAMMOGRAM. BIRADS 1 BREAST DENSITY: a. The breasts are almost entirely fatty. BIRAD: ASSESSMENT: 1 NEGATIVE RECOMMENDATION: ROUTINE SCREENING COMMENT: The patient has been notified of the results by letter per MQSA requirements. Additional no tification policies are in place for contacting patient with suspicious or incomplete findings. Quality ID #225: The [employer] recommends an annual screening mammogram for women aged 40 years or over. This facility utilizes a reminder system to ensure that all patients receive reminder letters, and/or direct phone calls for appointments. This includes reminders for routine scr eening mammograms, diagnostic mammograms, or other Breast Imaging Interventions when appropriate. Th is patient will be placed in the appropriate reminder system. TECHNICAL DOCUMENTATION: FINDING NUMBER: (1) ASSESSMENT: (1) JOB ID: [id number] [employer]- All Rights Reserved Reading location - IP/workstation name: [email or web address]
== END ==
LOC: WI 14:15
PROVIDERS: ATTEND Physician Assistant
DX: Z12.31 Encounter for screening mammogram for malignant neoplasm of breast (principal)
CPT/HCPCS: 77067

== ENCOUNTER 2019-06-11 13:34 | Inpatient (IN) | payer OTHER ==
[2019-06-11] MEDS ORDERED: MAGNESIUM SULFATE/D5W 1 GM/100 ML RTUPB IV ONE ×4 (13:48→19:30)
[2019-06-11] MEDS ORDERED: METHYLPREDNISOLONE INJ 125 MG/2 ML SDV IV ONE ×2 (13:48→19:00)
[2019-06-11] MEDS ORDERED: IPRATROPIUM/ALBUTEROL 0.5-2.5 MG/3 ML AMPUL NEB ONE ×3 (13:48→20:04)
--- NOTE | 2019-06-11 13:50 | ER Document Report ---
ED Medical Screen (RME) - General Chief Complaint: Breathing Difficulty Stated Complaint: TROUBLE BREATHING Time Seen by Provider: 06/11/19 13:44 Primary Care Provider: DANYELL CORTES PA-C [Primary Care Provider] - Follow up as needed TRAVEL OUTSIDE OF THE [place] IN LAST 30 DAYS: No - HPI Notes: 06/11/19 13:49 Patient is a 63-year-old female with a history of hypertension and COPD (oxygen dependent usually on 4 L via NC) presents complaining of shortness of breath, dyspnea on exertion, cough, wheezing, and some mild chest pain when her oxygen gets too low that began primarily this morning, but is a chronic issue otherwise. No fever. I have treated and performed a rapid initial assessment of this patient. A comprehensive ED assessment and evaluation of the patient, analysis of test results and completion of medical decision making process will be conducted by additional ED providers. PHYSICAL EXAMINATION: GENERAL: Well-appearing, well-nourished and in no acute distress. A&Ox4. Answers questions appropriately. Lungs: Diminished throughout with wheezing bilaterally. Patient is oxygenating in the mid 80s on 4 L. Extremities: Trace edema bilateral lower extremities. - Related Data Allergies/Adverse Reactions: No Known Allergies Allergy (Verified 06/11/19 13:44) Past Medical History - Past Medical History Cardiac Medical History: Reports: Hx Congestive Heart Failure - Diastolic congestive heart failure, Hx Hypercholesterolemia, Hx Hypertension Denies: Hx Atrial Fibrillation, Hx Coronary Artery Disease, Hx Heart Attack, Hx Peripheral Vascular Disease, Hx Pulmonary Embolism, Hx Heart Murmur Pulmonary Medical History: Reports: Hx Asthma, Hx Bronchitis, Hx COPD - ON 4L O2 AT HOME, Hx Sleep Apnea - CPAP Denies: Hx Pneumonia, Hx Respiratory Failure, Hx Tuberculosis Neurological Medical History: Denies: Hx Cerebrovascular Accident, Hx Seizures Endocrine Medical History: Reports: Hx Diabetes Mellitus Type 2, Hx Hyperthyroidism. Denies: Hx Graves' Disease, Hx Hypothyroidism Renal/ Medical History: Denies: Hx End Stage Renal Disease, Hx Kidney Stones, Hx Peritoneal Dialysis Malignancy Medical History: Denies: Hx Lung Cancer GI Medical History: Reports: Hx Gastroesophageal Reflux Disease. Denies: Hx Crohn's Disease, Hx Hepatitis, Hx Hiatal Hernia, Hx Irritable Bowel, Hx Liver Failure, Hx Pancreatitis, Hx Ulcer Musculoskeltal Medical History: Reports Hx Arthritis - FOZIA KNEES, Denies Hx Fibromyalgia, Denies Hx Muscular Dystrophy, Denies Hx Systemic Lupus Erythematosus Psychiatric Medical History: Denies: Hx Bipolar Disorder, Hx Depression, Hx Post Traumatic Stress Disorder Traumatic Medical History: Denies: Hx Fractures Infectious Medical History: Denies: Hx Hepatitis Past Surgical History: Reports: Hx Hysterectomy. Denies: Hx Appendectomy, Hx B owel Surgery, Hx Section, Hx Cholecystectomy, Hx Colostomy, Hx Coronary Artery Bypass Graft, Hx Gastric Bypass Surgery, Hx Herniorrhaphy, Hx Mastectomy, Hx Open Heart Surgery, Hx Pacemaker, Hx Tonsillectomy, Hx Tubal Ligation - Immunizations Hx Diphtheria, Pertussis, Tetanus Vaccination: - UNSURE Doctor's Discharge - Discharge Referrals: DANYELL CORTES PA-C [Primary Care Provider] - Follow up as needed
--- NOTE | 2019-06-11 14:49 | RADIOLOGY REPORT (SQ) ---
EXAM DESCRIPTION: CHEST SINGLE VIEW COMPLETED DATE/TIME: 06/11/2019 2:29 pm REASON FOR STUDY: SOB COMPARISON: AP view of the chest from 03/24/2018. EXAM PARAMETERS: NUMBER OF VIEWS: One view. TECHNIQUE: An AP view of the chest was obtained. RADIATION DOSE: NA LIMITATIONS: None. FINDINGS: LUNGS AND PLEURA: No consolidation, pleural effusion or pneumothorax. MEDIASTINUM AND HILAR STRUCTURES: No mediastinal or hilar contour abnormality. HEART AND VASCULAR STRUCTURES: Stable enlarged cardiac silhouette. BONES: No acute findings. HARDWARE: None in the chest. OTHER: No other finding. IMPRESSION: Low inspiratory lung volumes and mild cardiomegaly without a superimposed acute cardiopu lmonary process. TECHNICAL DOCUMENTATION: JOB ID: [id number] 2010 [employer]- All Rights Reserved Reading location - IP/workstation name: [email or web address]
[2019-06-11 15:22] LABS: APPEARANCE,URINE CLEAR; BILIRUBIN,URINE NEGATIVE (NEGATIVE); COLOR,URINE YELLOW; GLUCOSE, URINE NEGATIVE (NEGATIVE); KETONES,URINE NEGATIVE (NEGATIVE); PROTEIN,URINE NEGATIVE (NEGATIVE); URINE SPECIFIC GRAVITY 1.008; UROBILINOGEN,URINE NEGATIVE mg/dL (<2.0)
[2019-06-11 15:39] LABS: ABSOLUTE LYMPHOCYTES (AUTO) 1.3 10^3/uL (0.5-4.7); ABSOLUTE MONOCYTES (AUTO) 0.5 10^3/uL (0.1-1.4); ABSOLUTE NEUT (AUTO) 3.9 10^3/uL (1.7-8.2); BASOPHILS % (AUTO) 0.6 % (0-2); EOSINOPHILS % (AUTO) 0.8 % (0-6); HEMATOCRIT 38.7 % (36.0-47.0); HEMOGLOBIN 12.7 g/dL (12.0-15.5); LYMPHOCYTES % (AUTO) 21.9 % (13-45); MEAN CORPUSCULAR HEMOGLOBIN 28.8 pg (27.0-33.4); MEAN CORPUSCULAR HGB CONC 32.7 g/dL (32.0-36.0); MEAN CORPUSCULAR VOLUME 88 fl (80-97); MONOCYTES % (AUTO) 8.8 % (3-13); PLATELET COUNT 247 10^3/uL (150-450); RED BLOOD COUNT 4.39 10^6/uL (3.72-5.28); RED CELL DISTRIBUTION WIDTH 16.2 % (11.5-14.0); SEGMENTED NEUTROPHILS % (AUTO) 67.9 % (42-78); TOTAL CELLS COUNTED % (AUTO) 100 %; WHITE BLOOD COUNT 5.8 10^3/uL (4.0-10.5)
[2019-06-11 15:41] LABS: ALBUMIN 4.3 g/dL (3.5-5.0); ALKALINE PHOSPHATASE 104 U/L (38-126); ANION GAP 11 (5-19); ASPARTATE AMINO TRANSFERASE 29 U/L (14-36); BILIRUBIN,DIRECT 0.2 mg/dL (0.0-0.4); BLOOD UREA NITROGEN 30 mg/dL (7-20); CALCIUM 9.5 mg/dL (8.4-10.2); CARBON DIOXIDE 31 mmol/L (22-30); CHLORIDE 98 mmol/L (98-107); GLUCOSE 109 mg/dL (75-110); TOTAL PROTEIN 7.5 g/dL (6.3-8.2)
[2019-06-11 15:52] LABS: TROPONIN I 0.012 ng/mL
[2019-06-11 16:50] LABS: VENOUS BLOOD BASE EXCESS 2.6 mmol/L; VENOUS BLOOD HCO3 28.7 mmol/L (20-32); VENOUS BLOOD PCO2 50.4 mmHg (35-63); VENOUS BLOOD PH 7.37 (7.30-7.42)
--- NOTE | 2019-06-11 18:44 | ER Document Report ---
ED Respiratory Problem - General TRAVEL OUTSIDE OF THE [place] IN LAST 30 DAYS: No <ROSE DEJESUS - Last Filed: 06/11/19 20:06> <TOILILLIAN Johnston - Last Filed: 06/12/19 00:45> - General Chief Complaint: Shortness Of Breath Stated Complaint: TROUBLE BREATHING Time Seen by Provider: 06/11/19 13:44 Primary Care Provider: DANYELL CORTES PA-C [PHYSICIAN MANAGER POST] - Follow up as needed Notes: Patient is a 63-year-old female who presents the emergency department with a chief complaint of shortness of breath. Patient states that she is has felt short of breath for the past couple of weeks. She has a history of COPD. She is oxygen dependent on 4 L nasal cannula. Patient states that her oxygen saturation is normally 86 to 90% on her 4 L. She also states that she has a cough that she has had for the past couple of weeks. States that the cough is productive. Current medications are methimazole, ipratropium bromide, pantoprazole, atorvastatin, aspirin, metformin, furosemide, carvedilol, lisinopril, montelukast, pramipexole, MVI, Flonase, alendronate sodium, trilogy, Colace, and pro-air. (ROSE DEEJSUS) - Related Data Allergies/Adverse Reactions: No Known Allergies Allergy (Verified 06/11/19 13:44) Past Medical History - Social History Smoking Status: Former Smoker Family History: COPD, DM, Hypertension Patient has suicidal ideation: No Patient has homicidal ideation: No - Past Medical History Cardiac Medical History: Reports: Hx Congestive Heart Failure - Diastolic congestive heart failure, Hx Hypercholesterolemia, Hx Hypertension Denies: Hx Atrial Fibrillation, Hx Coronary Artery Disease, Hx Heart Attack, Hx Peripheral Vascular Disease, Hx Pulmonary Embolism, Hx Heart Murmur Pulmonary Medical History: Reports: Hx Asthma, Hx Bronchitis, Hx COPD - ON 4L O2 AT HOME, Hx Sleep Apnea - CPAP Denies: Hx Pneumonia, Hx Respiratory Failure, Hx Tuberculosis Neurological Medical History: Denies: Hx Cerebrovascular Accident, Hx Seizures Endocrine Medical History: Reports: Hx Diabetes Mellitus Type 2, Hx Hyperthyroidism. Denies: Hx Graves' Disease, Hx Hypothyroidism Renal/ Medical History: Denies: Hx End Stage Renal Disease, Hx Kidney Stones, Hx Peritoneal Dialysis Malignancy Medical History: Denies: Hx Lung Cancer GI Medical History: Reports: Hx Gastroesophageal Reflux Disease. Denies: Hx Crohn's Disease, Hx Hepatitis, Hx Hiatal Hernia, Hx Irritable Bowel, Hx Liver Failure, Hx Pancreatitis, Hx Ulcer Musculoskeletal Medical History: Reports Hx Arthritis - FOZIA KNEES, Denies Hx Fibromyalgia, Denies Hx Muscular Dystrophy, Denies Hx Systemic Lupus Erythematosus Psychiatric Medical History: Denies: Hx Bipolar Disorder, Hx Depression, Hx Post Traumatic Stress Disorder Traumatic Medical History: Denies: Hx Fractures Infectious Medical History: Denies: Hx Hepatitis Past Surgical History: Reports: Hx Hysterectomy. Denies: Hx Appendectomy, Hx Bowel Surgery, Hx Section, Hx Cholecystectomy, Hx Colostomy, Hx Coronary Artery Bypass Graft, Hx Gastric Bypass Surgery, Hx Herniorrhaphy, Hx Mastectomy, Hx Open Heart Surgery, Hx Pacemaker, Hx Tonsillectomy, Hx Tubal Ligation - Immunizations Hx Diphtheria, Pertussis, Tetanus Vaccination: - UNSURE Hx Pneumococcal Vaccination: 01/27/16 <ROSE DEJESUS - Last Filed: 06/11/19 20:06> Review of Systems <ROSE DEJESUS - Last Filed: 06/11/19 20:06> - Review of Systems Notes: REVIEW OF SYSTEMS: CONSTITUTIONAL : Denies recent illness. Denies recent unintentional weight loss. Denies fever, chills, or sweats. EENT: Denies eye, ear, throat, or mouth pain, discharge, or symptoms. Denies nasal or sinus congestion. CARDIOVASCULAR: Denies chest pain. RESPIRATORY: See HPI. GASTROINTESTINAL: Denies nausea, vomiting, and diarrhea. Denies abdominal pain. Denies constipation. GENITOURINARY: Denies difficulty urinating, burning, blood in urine, urgency or frequency. MUSCULOSKELETAL: Denies neck and back pain. Denies joint pain or swelling. SKIN: Denies rash, itchiness, or lesions HEMATOLOGIC : Denies easy bruising or bleeding. LYMPHATIC: Denies swollen, painful, enlarged glands. NEUROLOGICAL: Denies no numbness or tingling denies weakness. Denies headache. Denies altered mental status. Denies alteration in speech. PSYCHIATRIC: Denies stress, anxiety, alteration in sleep patterns, or depression. All other systems reviewed and negative. (ROSE DEJESUS) Physical Exam <ROSE DEJESUS - Last Filed: 06/11/19 20:06> - Vital signs Vitals: Temp Pulse Resp BP Pulse Ox 98.6 F 85 14 134/81 H 93 06/11/19 13:51 06/11/19 13:51 06/11/19 13:51 06/11/19 13:51 06/11/19 13:51 - Notes Notes: PHYSICAL EXAMINATION: GENERAL: Appears well, healthy, well-nourished, no acute distress. HEAD: Normocephalic, atraumatic. EYES: PERRL, conjunctiva normal, all extraocular movements intact, sclera nonicteric ENT: Moist mucous membranes. NECK: Supple, no noticeable swelling, redness, rash. Normal range of motion. LUNGS: Expiratory wheezes noted throughout all lung song. CARDIOVASCULAR: S1-S2, regular rate, regular rhythm. Radial pulses 2+, normal. ABDOMEN: Normoactive bowel sounds. Soft, nontender, no guarding, no rebound tenderness, and no masses palpated. EXTREMITIES: Normal strength and range of motion, no pitting or edema. No cyanosis. NEUROLOGICAL: Moves all extremities upon command. Strength 5/5 in all extremities. PSYCH: Normal mood, normal affect. SKIN: Warm, dry. No rash, lesions, ulcerations noted. Normal skin turgor. (ROSE DEJESUS) Course - Laboratory Result Diagrams: 06/11/19 14:16 06/11/19 14:16 <ROSE DEJESUS - Last Filed: 06/11/19 20:06> - Laboratory Result Diagrams: 06/11/19 14:16 06/11/19 14:16 <LILLIAN CM - Last Filed: 06/12/19 00:45> - Re-evaluation Re-evalutation: 06/11/19 18:44 Hematology is unremarkable. Her blood gas is surprisingly normal. Chemistries show an elevated creatinine BUN and creatinine. Her BNP is 567. Initial troponin is negative. She received 2 DuoNeb treatments in triage and at this time she still is wheezy. She received Solu-Medrol and magnesium to help with her symptoms. Will reassess the patient. 06/11/19 19:30 I have reevaluated the patient and patient still has expiratory wheezes throughout all lung song. I will give her Rocephin to cover pneumonia. Her chest x-ray shows low lung volumes, and it appears that there is an infiltrate in the right middle lobe. Patient is requiring extra oxygen than her normal 4 L and she is currently on 5 L satting 87%. 86% and greater is her normal. 06/11/19 19:[address] Soler and he would like to give the patient extra time. He is recommending the patient use the incentive spirometer. (ROSE DEJESUS) 06/11/19 20:33 Report received on the patient. I did evaluate the patient. She has wheezing on expiration in all lung song. Pulse oximetry 81 to 86% on 5 L nasal cannula. Patient has received 2 g of magnesium, 4 albuterol treatments, Solu- Medrol. Patient states she feels better but still feels like she cannot catch her breath. Her lab work does not show acute emergent abnormalities at this time, BNP is mildly elevated. Case has apparently been discussed with hospitalist. Will give patient a 1 hour continuous nebulized treatment and have patient ambulated, she is normally on 4 L nasal cannula at home. If patient become significantly hypoxic or dyspneic will again discuss with hospitalist for possible admission 06/11/19 23:[address] Soler the hospitalist in person. He is planning on seeing the patient. I did speak with the patient during her continuous neb. Her saturation is 87% on 5 L support with the nebulizer going. She states that she normally does drop her saturations into the 60s when ambulatory at home. 06/12/19 00:[address] Soler, patient's pulse oximetry dropped into the 50s with minimal ambulation, took approximately 5 minutes for her to come back up to mid 80s on 4 L nasal cannula. Admit to telemetry bed. (LILLIAN CM) - Vital Signs Vital signs: Temp Pulse Resp BP Pulse Ox 97.8 F 85 21 H 107/67 85 L 06/11/19 20:21 06/11/19 13:51 06/11/19 21:11 06/11/19 21:11 06/11/19 21:11 - Laboratory Laboratory results interpreted by me: 06/11/19 06/11/19 06/11/19 14:16 14:16 14:16 RDW 16.2 H Carbon Dioxide 31 H BUN 30 H Creatinine 1.53 H Est GFR ( Amer) 41 L Est GFR (MDRD) Non-Af 34 L NT-Pro-B Natriuret Pep 567 H Leukocyte Esterase Rfl 06/11/19 14:16 RDW Carbon Dioxide BUN Creatinine Est GFR ( Amer) Est GFR (MDRD) Non-Af NT-Pro-B Natriuret Pep Leukocyte Esterase Rfl TRACE H Discharge <ROSE DEJESUS - Last Filed: 06/11/19 20:06> - Discharge Admitting Provider: Ryder (Hospitalist) Unit Admitted: Telemetry <LILLIAN CM - Last Filed: 06/12/19 00:45> - Discharge Clinical Impression: COPD exacerbation Congestive heart failure Qualifiers: Heart failure type: unspecified Heart failure chronicity: unspecified Qualified Code(s): I50.9 - Heart failure, unspecified Condition: Stable Disposition: ADMITTED INPATIENT Referrals: DANYELL CORTES PA-C [PHYSICIAN MANAGER POST] - Follow up as needed
[2019-06-11] MEDS ORDERED: CEFTRIAXONE INJ 1000 MG VIAL IV ONE (19:24)
[2019-06-11] MEDS ORDERED: NORMAL SALINE 500 ML IV PRN (19:32)
[2019-06-11] MEDS ORDERED: NORMAL SALINE 1000 ML 1,000 ML IV ONE (19:41)
--- NOTE | 2019-06-11 20:14 | EKG REPORT ---
SEVERITY:- OTHERWISE NORMAL ECG - SINUS RHYTHM ATRIAL PREMATURE COMPLEX : Confirmed by: Mello Herbert MD 11-Jun-2019 20:13:06
[2019-06-11] MEDS ORDERED: ALBUTEROL SULFATE 0.083% NEB 2.5 MG/3 ML AMPUL NEB ONE (20:15)
[2019-06-11 21:05] LABS: A TYPE INFLUENZA AG NEGATIVE (NEGATIVE)
[2019-06-11 21:06] LABS: B INFLUENZA AG NEGATIVE (NEGATIVE)
[2019-06-12] MEDS ORDERED: LACTULOSE SYRUP 20 GM/30 ML UDCUP PO ONE (00:44)
[2019-06-12] MEDS ORDERED: IPRATROPIUM/ALBUTEROL 0.5-2.5 MG/3 ML AMPUL NEB PRN (00:45)
[2019-06-12] MEDS ORDERED: ACETAMINOPHEN 325 MG TABLET PO PRN (00:45)
[2019-06-12] MEDS ORDERED: GUAIFENESIN SYRP 200 MG/10 ML UDC PO PRN (00:45)
[2019-06-12] MEDS ORDERED: HYDRALAZINE HCL INJ/PF 20 MG/1 ML SDV IV PRN (00:45)
[2019-06-12] MEDS ORDERED: DEXTROSE 40% GEL 15 GM TUBE PO PRN ×2 (00:49)
[2019-06-12] MEDS ORDERED: GLUCAGON,HUMAN RECOMB 1 MG INJ IM PRN (00:49)
[2019-06-12] MEDS ORDERED: DEXTROSE 50%-WATER 25 GM/50 ML DISP.SYRIN IV PRN ×2 (00:49)
[2019-06-12] MEDS ORDERED: PREDNISONE 20 MG TABLET PO ONE (01:15)
[2019-06-12] MEDS: CHLORPHENIRAMINE MALEATE 4 MG TABLET PO SCH ×4 (01:42→18:52)
[2019-06-12] MEDS: HEPARIN SOD (PORCINE) 5,000 UNIT/ML 1 ML VIAL SUBCUT SCH ×3 (06:17→22:01)
--- NOTE | 2019-06-12 06:37 | PDOC H&P ---
History of Present Illness Admission Date/PCP: 06/12/19 00:50 GEO COTE MD Patient complains of: Shortness of breath History of Present Illness: JIMMY SCHRADER is a 63 year old female with a past medical history of diabetes, morbid obesity with a BMI of 40.5, oxygen dependent COPD, diastolic heart failure and obstructive sleep apnea. She presents with 2 weeks of shortness of breath and a productive cough prompting evaluation in the emergency department where she is found to have bilateral wheeze, retractions, tachypnea pulse oximetry of 86% on 4 L and acute renal failure. Failing several treatments with albuterol, Atrovent, magnesium and steroids she is referred to the hospitalist for admission. She denies fever or recent change in medication regiment. Past Medical History Cardiac Medical History: Reports: Congestive Heart Failure - Diastolic congestive heart failure, Hyperlipidema, Hypertension Denies: Atrial Fibrillation, Coronary Artery Disease, Myocardial Infarction, Peripheral Vascular Disease, Pulmonary Embolism, Heart Murmur Pulmonary Medical History: Reports: Asthma, Bronchitis, Chronic Obstructive Pulmonary Disease (COPD) - ON 4L O2 AT HOME, Sleep Apnea - CPAP Denies: Pneumonia, Respiratory Failure, Tuberculosis Neurological Medical History: Denies: Seizures Endocrine Medical History: Reports: Diabetes Mellitus Type 2, Hyperthyroidism, Obesity Denies: Hypothyroidism Renal/ Medical History: Denies: End Stage Renal Disease Malignancy Medical History: Denies: Lung Cancer GI Medical History: Reports: Gastroesophageal Reflux Disease Denies: Crohn's Disease, Hepatitis, Hiatal Hernia Musculoskeltal Medical History: Reports: Arthritis - FOZIA KNEES Denies: Fibromyalgia Psychiatric Medical History: Denies: Bipolar Disorder, Depression, Post Traumatic Stress Disorder Hematology: Denies: Anemia, Sickle Cell Disease Past Surgical History Past Surgical History: Reports: Hysterectomy Denies: Amputation, Appendectomy, Section, Cholecystectomy, Colostomy, Coronary Artery Bypass Graft, Gastric Bypass Surgery, Herniorrhaphy, Mastectomy, Pacemaker, Tonsillectomy, Tubal Ligation Social History Information Source: Patient, Emergency Med Personnel, [facility] Records Smoking Status: Former Smoker Electronic Cigarette use?: No Frequency of Alcohol Use: None Hx Recreational Drug Use: No Drugs: None Hx Prescription Drug Abuse: No - Advance Directive Resuscitation Status: Full Code Family History Family History: COPD, DM, Hypertension Parental Family History Reviewed: Yes Children Family History Reviewed: Yes Sibling(s) Family History Reviewed.: Yes Medication/Allergy Home Medications: Albuterol Sulfate [Proair HFA Inhalation Aerosol 8.5 gm MDI] 1 puff IH Q4 07/02/17 Atorvastatin Calcium [Lipitor 10 mg Tablet] 10 mg PO QHS 07/02/17 Carvedilol [Coreg 3.125 mg Tablet] 3.125 mg PO Q12 07/02/17 Cholecalciferol (Vitamin D3) [Vitamin D3 5000 unit Capsule] 5,000 unit PO DAILY 07/02/17 Fluticasone Propionate [Flonase Nasal [place] 50 Mcg/[place] 16 gm] 1 spray NASL Q12 07/02/17 Furosemide [Lasix 40 mg Tablet] 40 mg PO BID 07/02/17 Metformin HCl [Glucophage] 500 mg PO DAILY 07/02/17 Pantoprazole Sodium [Protonix] 40 mg PO DAILY 07/02/17 Lisinopril [Prinivil 10 mg Tablet] 10 mg PO DAILY #30 tablet 07/04/17 Montelukast Sodium [Singulair 10 mg Tablet] 10 mg PO DAILY 03/12/18 Aspirin [Ecotrin 81 mg EC Tablet] 81 mg PO DAILY 06/11/19 Cetirizine HCl [Zyrtec 10 mg Tablet] 10 mg PO DAILY 06/11/19 Docusate Sodium [Colace 100 mg Capsule] 100 mg PO BIDP PRN 06/11/19 Fluticasone/Umeclidin/Vilanter [Trelegy 100-62.5-25 Mcg Ellipta 14 Dose/Dpi] 1 puff IH Q12 06/11/19 Ipratropium/Albuterol Sulfate [Duoneb 3 ml Ampul] 3 ml NEB [id number] PRN 06/11/19 Methimazole [Tapazole 5 mg Tablet] 2.5 mg PO DAILY 06/11/19 Allergies/Adverse Reactions: No Known Allergies Allergy (Verified 06/11/19 13:44) Review of Systems Constitutional: PRESENT: as per HPI, fatigue. ABSENT: chills, fever(s), headache(s), weight gain, weight loss Eyes: ABSENT: visual disturbances Ears: ABSENT: hearing changes Cardiovascular: ABSENT: chest pain, dyspnea on exertion, edema, orthropnea, pal pitations Respiratory: PRESENT: as per HPI, cough, dyspnea, sputum. ABSENT: hemoptysis Gastrointestinal: PRESENT: constipation. ABSENT: abdominal pain, diarrhea, hematemesis, hematochezia, nausea, vomiting Genitourinary: ABSENT: dysuria, hematuria Musculoskeletal: ABSENT: joint swelling Integumentary: ABSENT: rash, wounds Neurological: ABSENT: abnormal gait, abnormal speech, confusion, dizziness, focal weakness, syncope Psychiatric: ABSENT: anxiety, depression, homidical ideation, suicidal ideation Endocrine: ABSENT: cold intolerance, heat intolerance, polydipsia, polyuria Hematologic/Lymphatic: ABSENT: easy bleeding, easy bruising Physical Exam Vital Signs: Temp Pulse Resp BP Pulse Ox 98.1 F 89 20 132/78 H 86 L 06/12/19 03:11 06/12/19 03:11 06/12/19 03:11 06/12/19 03:11 06/12/19 03:11 Intake & Output 06/10/19 06/11/19 06/12/19 11:59 11:59 11:59 Intake Total 1200 Balance 1200 Weight 113.7 kg General appearance: PRESENT: cooperative, morbidly obese, well-developed Head exam: PRESENT: atraumatic, normocephalic Eye exam: PRESENT: conjunctiva pink, EOMI, PERRLA. ABSENT: scleral icterus Ear exam: PRESENT: normal external ear exam Mouth exam: PRESENT: moist, tongue midline Neck exam: ABSENT: carotid bruit, JVD, lymphadenopathy, thyromegaly Respiratory exam: PRESENT: accessory muscle use, prolonged expiratory phas, retraction, symmetrical, tachypnea, wheezes. ABSENT: rhonchi Cardiovascular exam: PRESENT: RRR. ABSENT: diastolic murmur, rubs, systolic murmur Pulses: PRESENT: normal carotid pulses Vascular exam: PRESENT: normal capillary refill GI/Abdominal exam: PRESENT: normal bowel sounds, soft. ABSENT: distended, guarding, mass, organolmegaly, rebound, tenderness Rectal exam: PRESENT: deferred Extremities exam: PRESENT: full ROM. ABSENT: calf tenderness, clubbing, pedal edema Neurological exam: PRESENT: alert, awake, oriented to person, oriented to place, oriented to time, oriented to situation, CN II-XII grossly intact. ABSENT: motor sensory deficit Psychiatric exam: PRESENT: appropriate affect, normal mood. ABSENT: homicidal ideation, suicidal ideation Skin exam: PRESENT: dry, intact, warm. ABSENT: cyanosis, rash Results Laboratory Results: 06/11/19 14:16 06/11/19 14:16 06/11/19 06/11/19 06/11/19 14:16 14:16 14:16 WBC 5.8 RBC 4.39 Hgb 12.7 Hct 38.7 MCV 88 MCH 28.8 MCHC 32.7 RDW 16.2 H Plt Count 247 Seg Neutrophils % 67.9 VBG pH VBG pCO2 VBG HCO3 VBG Base Excess Sodium 139.7 Potassium 5.0 Chloride 98 Carbon Dioxide 31 H Anion Gap 11 BUN 30 H Creatinine 1.53 H Est GFR ( Amer) 41 L Glucose 109 Calcium 9.5 Total Bilirubin 1.0 AST 29 Alkaline Phosphatase 104 Total Protein 7.5 Albumin 4.3 Urine Color YELLOW Urine Appearance CLEAR Urine pH 6.0 Ur Specific [place] 1.008 Urine Protein NEGATIVE Urine Glucose (UA) NEGATIVE Urine Ketones NEGATIVE Urine Blood NEGATIVE Urine RBC (Auto) 1 06/11/19 16:41 WBC RBC Hgb Hct MCV MCH MCHC RDW Plt Count Seg Neutrophils % VBG pH 7.37 VBG pCO2 50.4 VBG HCO3 28.7 VBG Base Excess 2.6 Sodium Potassium Chloride Carbon Dioxide Anion Gap BUN Creatinine Est GFR ( Amer) Glucose Calcium Total Bilirubin AST Alkaline Phosphatase Total Protein Albumin Urine Color Urine Appearance Urine pH Ur Specific [place] Urine Protein Urine Glucose (UA) Urine Ketones Urine Blood Urine RBC (Auto) 06/11/19 14:16 Troponin I 0.012 NT-Pro-B Natriuret Pep 567 H Impressions: Chest X-Ray 06/11/19 13:48 IMPRESSION: Low inspiratory lung volumes and mild cardiomegaly without a superimposed acute cardiopulmonary process. Assessment and Plan - Diagnosis (1) Acute bronchitis Is this a current diagnosis for this admission?: Yes Plan: Prednisone, doxycycline, Flonase, incentive spirometry (2) COPD exacerbation Is this a current diagnosis for this admission?: Yes Plan: Secondary to #1, supplemental oxygen (3) Acute and chronic respiratory failure with hypoxia Is this a current diagnosis for this admission?: Yes Plan: Secondary to #1, supplemental oxygen (4) LAUREL treated with BiPAP Is this a current diagnosis for this admission?: Yes Plan: CPAP ordered (5) Type 2 diabetes mellitus Is this a current diagnosis for this admission?: Yes Plan: Humalog sliding scale q. before meals (6) Acute renal failure Is this a current diagnosis for this admission?: Yes Plan: Appears euvolemic, urinalysis unremarkable, avoid nephrotoxic meds and doses follow-up chemistry - Time Time Spent with patient: 25-34 minutes - Inpatient Certification Medical Necessity: Need Close Monitoring Due to Risk of Patient Decompensation
[2019-06-12] MEDS: INSULIN LISPRO 100 UNIT/ML 3 ML VIAL SUBCUT SCH ×3 (08:00→18:52)
[2019-06-12] MEDS: IPRATROPIUM/ALBUTEROL 0.5-2.5 MG/3 ML AMPUL NEB SCH ×2 (08:21→16:01)
[2019-06-12] MEDS ORDERED: PREDNISONE 20 MG TABLET PO SCH (10:00)
[2019-06-12] MEDS: CETIRIZINE 10 MG TABLET PO SCH (11:24)
[2019-06-12] MEDS: FUROSEMIDE 40 MG TABLET PO SCH ×2 (11:24→18:51)
[2019-06-12] MEDS: METHIMAZOLE 5 MG TABLET PO SCH (11:25)
[2019-06-12] MEDS: ASPIRIN 81 MG TABLET, ENT COATED PO SCH (11:25)
[2019-06-12] MEDS: MONTELUKAST SODIUM 10 MG TABLET PO SCH (11:25)
[2019-06-12] MEDS: PANTOPRAZOLE SODIUM 40 MG TABLET.DR PO SCH (11:25)
[2019-06-12] MEDS: LISINOPRIL 10 MG TABLET PO SCH (11:28)
[2019-06-12] MEDS: CARVEDILOL 3.125 MG TABLET PO SCH ×2 (11:28→22:00)
[2019-06-12] MEDS: DOXYCYCLINE HYCLATE 100 MG TABLET PO SCH ×2 (11:33→22:02)
[2019-06-12] MEDS: FLUTICASONE NASAL SPRAY 50 MCG/SPRY 120 SPRAY/16 GM NASL SCH ×2 (11:34→22:00)
[2019-06-12] MEDS: AZITHROMYCIN 500 MG in DEXTROSE 5%-WATER 250 ML IV SCH (11:41)
--- NOTE | 2019-06-12 14:44 | PDOC PROGRESS REPORT ---
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 Patient was seen on afternoon rounds with family members present. She was found resting in bed, comfortably, on supplemental oxygen at 4 L/min (baseline oxygen requirement). The patient reports that she is feeling slightly better today, though, continues to have significant shortness of breath with minimal activity and a productive cough. She denies fever, chills, chest pain, palpitations, abdominal pain, nausea vomiting and diarrhea. She has no other questions or concerns at this time. No concerns per nursing Reason For Visit: COPD EXACERBATION Physical Exam Vital Signs: Temp Pulse Resp BP Pulse Ox 98.1 F 86 22 H 124/67 91 L 06/12/19 11:00 06/12/19 11:00 06/12/19 11:00 06/12/19 11:00 06/12/19 11:00 Intake & Output 06/11/19 06/12/19 06/13/19 06:59 06:59 06:59 Intake Total 1500 650 Balance 1500 650 Weight 113.7 kg General appearance: PRESENT: no acute distress, cooperative, morbidly obese, well-developed, well-nourished Head exam: PRESENT: atraumatic, normocephalic Eye exam: PRESENT: conjunctiva pink, EOMI, PERRLA. ABSENT: scleral icterus Ear exam: PRESENT: normal external ear exam Mouth exam: PRESENT: moist, tongue midline Teeth exam: PRESENT: poor dentation Respiratory exam: PRESENT: decreased breath sounds - Tight, prolonged expiratory phas, rhonchi, symmetrical, wheezes, other - Supplemental oxygen via nasal cannula. ABSENT: rales Cardiovascular exam: PRESENT: RRR, +S1, +S2. ABSENT: diastolic murmur, rubs, systolic murmur Vascular exam: PRESENT: normal capillary refill Extremities exam: PRESENT: full ROM. ABSENT: calf tenderness, clubbing, pedal edema Musculoskeletal exam: PRESENT: ambulatory Neurological exam: PRESENT: alert, awake, oriented to person, oriented to place, oriented to time, oriented to situation, CN II-XII grossly intact. ABSENT: motor sensory deficit Psychiatric exam: PRESENT: appropriate affect, normal mood. ABSENT: homicidal ideation, suicidal ideation Skin exam: PRESENT: dry, intact, warm. ABSENT: cyanosis, rash Results Laboratory Results: 06/11/19 14:16 06/11/19 14:16 06/11/19 06/11/19 06/11/19 14:16 14:16 14:16 WBC 5.8 RBC 4.39 Hgb 12.7 Hct 38.7 MCV 88 MCH 28.8 MCHC 32.7 RDW 16.2 H Plt Count 247 Seg Neutrophils % 67.9 VBG pH VBG pCO2 VBG HCO3 VBG Base Excess Sodium 139.7 Potassium 5.0 Chloride 98 Carbon Dioxide 31 H Anion Gap 11 BUN 30 H Creatinine 1.53 H Est GFR ( Amer) 41 L Glucose 109 Calcium 9.5 Total Bilirubin 1.0 AST 29 Alkaline Phosphatase 104 Total Protein 7.5 Albumin 4.3 Urine Color YELLOW Urine Appearance CLEAR Urine pH 6.0 Ur Specific [place] 1.008 Urine Protein NEGATIVE Urine Glucose (UA) NEGATIVE Urine Ketones NEGATIVE Urine Blood NEGATIVE Urine RBC (Auto) 1 06/11/19 16:41 WBC RBC Hgb Hct MCV MCH MCHC RDW Plt Count Seg Neutrophils % VBG pH 7.37 VBG pCO2 50.4 VBG HCO3 28.7 VBG Base Excess 2.6 Sodium Potassium Chloride Carbon Dioxide Anion Gap BUN Creatinine Est GFR ( Amer) Glucose Calcium Total Bilirubin AST Alkaline Phosphatase Total Protein Albumin Urine Color Urine Appearance Urine pH Ur Specific [place] Urine Protein Urine Glucose (UA) Urine Ketones Urine Blood Urine RBC (Auto) 06/11/19 14:16 Troponin I 0.012 NT-Pro-B Natriuret Pep 567 H Impressions: Chest X-Ray 06/11/19 13:48 IMPRESSION: Low inspiratory lung volumes and mild cardiomegaly without a superimposed acute cardiopulmonary process. Assessment and Plan - Diagnosis (1) Acute and chronic respiratory failure with hypoxia Is this a current diagnosis for this admission?: Yes Plan: Patient is admitted to the medical floor on continuous cardiac telemetry. She is empirically placed on IV azithromycin and doxycycline for treatment of bronchitis. She is started on chlorphentermine. She is provided supplemental oxygen and BiPAP as needed to maintain saturations greater than 89%. Scheduled and as needed nebulizer treatments. We will increase steroid therapy to IV Solu-Medrol. Singulair. Robitussin as needed. Encourage pulmonary toilet with incentive spirometer, flutter valve, and ambulation. (2) COPD exacerbation Is this a current diagnosis for this admission?: Yes Plan: Management as above. (3) Acute renal failure Is this a current diagnosis for this admission?: Yes Plan: Appears euvolemic, urinalysis unremarkable We will continue IV fluids. Avoid nephrotoxic medications as able. Follow-up chemistry. (4) LAUREL treated with BiPAP Is this a current diagnosis for this admission?: Yes Plan: BiPAP ordered May use home device. 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 Consistent carb diet. Accu-Cheks before meals and at bedtime with Humalog for sliding scale coverage. Hypoglycemia protocol in place. (6) Morbid obesity with BMI of 40.0-44.9, adult Is this a current diagnosis for this admission?: Yes Plan: BMI 40.5. Lifestyle modification dietary discretion advised. - Time Time Spent with patient: 25-34 minutes Medications reviewed and adjusted accordingly: Yes Anticipated discharge: Home Within: within 72 hours
[2019-06-12] MEDS: NORMAL SALINE 1000 ML 1,000 ML IV PRN (14:58)
[2019-06-12] MEDS: METHYLPREDNISOLONE INJ 40 MG/1 ML SDV IV SCH (22:00)
[2019-06-12] MEDS: ATORVASTATIN CALCIUM 10 MG TABLET PO SCH (22:00)
[2019-06-13] MEDS: IPRATROPIUM/ALBUTEROL 0.5-2.5 MG/3 ML AMPUL NEB SCH ×4 (00:38→23:48)
[2019-06-13] MEDS: NORMAL SALINE 1000 ML 1,000 ML IV PRN ×3 (00:45→17:18)
[2019-06-13 05:12] LABS: HEMATOCRIT 37.8 % (36.0-47.0); MEAN CORPUSCULAR HEMOGLOBIN 28.2 pg (27.0-33.4); MEAN CORPUSCULAR HGB CONC 31.8 g/dL (32.0-36.0); MEAN CORPUSCULAR VOLUME 89 fl (80-97); PLATELET COUNT 246 10^3/uL (150-450); RED BLOOD COUNT 4.26 10^6/uL (3.72-5.28); RED CELL DISTRIBUTION WIDTH 16.3 % (11.5-14.0)
[2019-06-13 05:15] LABS: WHITE BLOOD COUNT 12.3 10^3/uL (4.0-10.5)
[2019-06-13 05:33] LABS: ANION GAP 10 (5-19); BLOOD UREA NITROGEN 33 mg/dL (7-20); CALCIUM 8.7 mg/dL (8.4-10.2); CARBON DIOXIDE 31 mmol/L (22-30); CHLORIDE 100 mmol/L (98-107); GLUCOSE 150 mg/dL (75-110)
[2019-06-13 05:43] LABS: ABSOLUTE MONOCYTES # (MANUAL) 0.1 10^3/uL (0.1-1.4); BAND NEUTROPHILS % (MANUAL) 5 % (3-5); BASOPHILS % (MANUAL) 0 % (0-2); EOSINOPHILS % (MANUAL) 0 % (0-6); LYMPHOCYTES % (MANUAL) 8 % (13-45); MONOCYTES % (MANUAL) 1 % (3-13); SEGMENTED NEUTROPHILS % (MAN) 86 % (42-78); TOTAL CELLS COUNTED 100
[2019-06-13 05:44] LABS: ANISOCYTOSIS 1+; PLATELET COMMENT ADEQUATE; POLYCHROMASIA 1+
[2019-06-13] MEDS: HEPARIN SOD (PORCINE) 5,000 UNIT/ML 1 ML VIAL SUBCUT SCH ×3 (06:19→22:39)
[2019-06-13] MEDS: METHYLPREDNISOLONE INJ 40 MG/1 ML SDV IV SCH ×3 (06:19→22:39)
[2019-06-13] MEDS: INSULIN LISPRO 100 UNIT/ML 3 ML VIAL SUBCUT SCH ×3 (08:10→16:13)
[2019-06-13] MEDS: AZITHROMYCIN 500 MG in DEXTROSE 5%-WATER 250 ML IV SCH (09:18)
[2019-06-13] MEDS: ASPIRIN 81 MG TABLET, ENT COATED PO SCH (09:21)
[2019-06-13] MEDS: FUROSEMIDE 40 MG TABLET PO SCH ×2 (09:22→17:18)
[2019-06-13] MEDS: PANTOPRAZOLE SODIUM 40 MG TABLET.DR PO SCH (09:22)
[2019-06-13] MEDS: METHIMAZOLE 5 MG TABLET PO SCH (09:22)
[2019-06-13] MEDS: MONTELUKAST SODIUM 10 MG TABLET PO SCH (09:22)
[2019-06-13] MEDS: CETIRIZINE 10 MG TABLET PO SCH (09:22)
[2019-06-13] MEDS: FLUTICASONE NASAL SPRAY 50 MCG/SPRY 120 SPRAY/16 GM NASL SCH ×2 (09:24→22:31)
[2019-06-13] MEDS: CARVEDILOL 3.125 MG TABLET PO SCH ×2 (09:24→23:20)
[2019-06-13] MEDS: DOXYCYCLINE HYCLATE 100 MG TABLET PO SCH ×2 (09:24→23:10)
[2019-06-13] MEDS: LISINOPRIL 10 MG TABLET PO SCH (09:25)
--- NOTE | 2019-06-13 12:59 | PDOC PROGRESS REPORT ---
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 Patient was seen on afternoon rounds. She was found resting in bed, comfortably, on supplemental oxygen at 4 L/min (baseline oxygen requirement). The patient reports that she is feeling better today. Does continue to have shortness of breath with minimal activity; encouraged to ambulate in halls today. She denies fever, chills, chest pain, palpitations, abdominal pain, nausea vomiting and diarrhea. She has no other questions or concerns at this time. No concerns per nursing Reason For Visit: COPD EXACERBATION Physical Exam Vital Signs: Temp Pulse Resp BP Pulse Ox 98.3 F 81 21 H 121/95 H 90 L 06/13/19 11:00 06/13/19 11:00 06/13/19 11:00 06/13/19 11:00 06/13/19 11:00 Intake & Output 06/12/19 06/13/19 06/14/19 06:59 06:59 06:59 Intake Total 1500 2450 250 Output Total 1800 Balance 1500 650 250 Weight 113.7 kg 113.5 kg General appearance: PRESENT: no acute distress, cooperative, morbidly obese, well-developed, well-nourished Head exam: PRESENT: atraumatic, normocephalic Eye exam: PRESENT: conjunctiva pink, EOMI, PERRLA. ABSENT: scleral icterus Mouth exam: PRESENT: moist, tongue midline Teeth exam: PRESENT: poor dentation Respiratory exam: PRESENT: prolonged expiratory phas, rhonchi, symmetrical, unlabored, other - Baseline oxygen requirement. ABSENT: rales, wheezes Cardiovascular exam: PRESENT: RRR, +S1, +S2. ABSENT: diastolic murmur, rubs, systolic murmur Vascular exam: PRESENT: normal capillary refill Extremities exam: PRESENT: full ROM. ABSENT: calf tenderness, clubbing, pedal edema Musculoskeletal exam: PRESENT: ambulatory Neurological exam: PRESENT: alert, awake, oriented to person, oriented to place, oriented to time, oriented to situation, CN II-XII grossly intact. ABSENT: motor sensory deficit Psychiatric exam: PRESENT: appropriate affect, normal mood. ABSENT: homicidal ideation, suicidal ideation Skin exam: PRESENT: dry, intact, warm. ABSENT: cyanosis, rash Results Laboratory Results: 06/13/19 04:33 06/13/19 04:33 06/13/19 06/13/19 04:33 04:33 WBC 12.3 H D RBC 4.26 Hgb 12.0 Hct 37.8 MCV 89 MCH 28.2 MCHC 31.8 L RDW 16.3 H Plt Count 246 Seg Neutrophils % Not Reportable Sodium 141.0 Potassium 5.0 Chloride 100 Carbon Dioxide 31 H Anion Gap 10 BUN 33 H Creatinine 1.44 H Est GFR ( Amer) 44 L Glucose 150 H Calcium 8.7 06/11/19 14:16 Catheterized Urine Urine Culture - Final Escherichia Coli 06/11/19 14:16 Troponin I 0.012 NT-Pro-B Natriuret Pep 567 H Impressions: Chest X-Ray 06/11/19 13:48 IMPRESSION: Low inspiratory lung volumes and mild cardiomegaly without a superimposed acute cardiopulmonary process. Assessment and Plan - Diagnosis (1) Acute and chronic respiratory failure with hypoxia Is this a current diagnosis for this admission?: Yes Plan: Patient is admitted to the medical floor on continuous cardiac telemetry. She is empirically placed on IV azithromycin and doxycycline for treatment of bronchitis. Continue chlorphentermine. She is provided supplemental oxygen and BiPAP as needed to maintain saturations greater than 89%. Scheduled and as needed nebulizer treatments. Continue IV Solu-Medrol. Singulair. Robitussin as needed. Encourage pulmonary toilet with incentive spirometer, flutter valve, and ambulation. (2) COPD exacerbation Is this a current diagnosis for this admission?: Yes Plan: Management as above. (3) Acute renal failure Is this a current diagnosis for this admission?: Yes Plan: Slight improvement today. Appears euvolemic, urinalysis unremarkable We will continue IV fluids. Avoid nephrotoxic medications as able. Follow-up chemistry. (4) LAUREL treated with BiPAP Is this a current diagnosis for this admission?: Yes Plan: BiPAP ordered May use home device. 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 Consistent carb diet. Accu-Cheks before meals and at bedtime with Humalog for sliding scale coverage. Hypoglycemia protocol in place. (6) Morbid obesity with BMI of 40.0-44.9, adult Is this a current diagnosis for this admission?: Yes Plan: BMI 40.5. Lifestyle modification dietary discretion advised. - Time Time Spent with patient: 15-24 minutes Medications reviewed and adjusted accordingly: Yes Anticipated discharge: Home Within: within 48 hours
[2019-06-13] MEDS: ATORVASTATIN CALCIUM 10 MG TABLET PO SCH (22:42)
[2019-06-14] MEDS: NORMAL SALINE 1000 ML 1,000 ML IV PRN (02:00)
[2019-06-14 05:59] LABS: ANION GAP 9 (5-19); BLOOD UREA NITROGEN 39 mg/dL (7-20); CALCIUM 7.8 mg/dL (8.4-10.2); CARBON DIOXIDE 28 mmol/L (22-30); CHLORIDE 102 mmol/L (98-107); GLUCOSE 140 mg/dL (75-110); POTASSIUM 4.6 mmol/L (3.6-5.0)
[2019-06-14] MEDS: METHYLPREDNISOLONE INJ 40 MG/1 ML SDV IV SCH (06:22)
[2019-06-14] MEDS: HEPARIN SOD (PORCINE) 5,000 UNIT/ML 1 ML VIAL SUBCUT SCH (06:22)
[2019-06-14] MEDS: IPRATROPIUM/ALBUTEROL 0.5-2.5 MG/3 ML AMPUL NEB SCH (07:40)
[2019-06-14] MEDS: INSULIN LISPRO 100 UNIT/ML 3 ML VIAL SUBCUT SCH (08:22)
[2019-06-14] MEDS ORDERED: MAGNESIUM HYDROXIDE SUSP 30 ML UDCUP PO ONE (09:50)
[2019-06-14] MEDS ORDERED: MAG HYDROX/AL HYDROX/SIMETH SUSP 30 ML UDCUP PO ONE (09:50)
[2019-06-14] MEDS: CARVEDILOL 3.125 MG TABLET PO SCH (09:57)
[2019-06-14] MEDS: FUROSEMIDE 40 MG TABLET PO SCH (09:57)
[2019-06-14] MEDS: PANTOPRAZOLE SODIUM 40 MG TABLET.DR PO SCH (09:58)
[2019-06-14] MEDS: ASPIRIN 81 MG TABLET, ENT COATED PO SCH (09:58)
[2019-06-14] MEDS: LISINOPRIL 10 MG TABLET PO SCH (09:58)
[2019-06-14] MEDS: MONTELUKAST SODIUM 10 MG TABLET PO SCH (09:58)
[2019-06-14] MEDS: METHIMAZOLE 5 MG TABLET PO SCH (09:58)
[2019-06-14] MEDS: DOXYCYCLINE HYCLATE 100 MG TABLET PO SCH (09:59)
[2019-06-14] MEDS: AZITHROMYCIN 500 MG in DEXTROSE 5%-WATER 250 ML IV SCH (10:07)
[2019-06-14] MEDS: FLUTICASONE NASAL SPRAY 50 MCG/SPRY 120 SPRAY/16 GM NASL SCH (10:42)
[2019-06-14] MEDS: CETIRIZINE 10 MG TABLET PO SCH (10:43)
[2019-06-14 14:28] VITALS: BP 120/59
--- NOTE | 2019-06-14 15:19 | PDOC DISCHARGE SUMMARY ---
Impression - Admit/DC Date/PCP Admission Date/Primary Care Provider: 06/12/19 00:50 GEO COTE MD Discharge Date: 06/14/19 - Discharge Diagnosis (1) Acute and chronic respiratory failure with hypoxia Is this a current diagnosis for this admission?: Yes (2) COPD exacerbation Is this a current diagnosis for this admission?: Yes (3) Acute renal failure Is this a current diagnosis for this admission?: Yes (4) LAUREL treated with BiPAP Is this a current diagnosis for this admission?: Yes (5) Type 2 diabetes mellitus Is this a current diagnosis for this admission?: Yes (6) Morbid obesity with BMI of 40.0-44.9, adult Is this a current diagnosis for this admission?: Yes - Additional Information Resuscitation Status: Full Code Discharge Diet: Cardiac, Diabetic Discharge Activity: Activity As Tolerated, Balance Activity w/Rest, Slowly Increase Activity Referrals: DANYELL CORTES PA-C [PHYSICIAN REGION MANAGER] - 06/22/19 2:00 pm Prescriptions: Nebulizer [Compact Compressor Nebulizer] 1 each MC ASDIR PRN #1 each PRN Reason: Prednisone [Deltasone 20 mg Tablet] 60 mg PO DAILY #15 tablet Ipratropium/Albuterol Sulfate [Duoneb 3 ml Ampul] 3 ml NEB RTQ6HP PRN #120 vial.neb PRN Reason: Fluticasone Propionate [Flonase Nasal Harbinger 50 Mcg/Harbinger 16 gm] 2 spray NASL Q12 #1 spray.pump Guaifenesin [Mucinex Sr 600 mg Tablet.sa] 600 mg PO Q12 #14 tablet.sa Doxycycline Hyclate [Vibramycin 100 mg Tablet] 100 mg PO Q12 #14 tablet Home Medications: Albuterol Sulfate [Proair HFA Inhalation Aerosol 8.5 gm MDI] 1 puff IH Q4 07/02/17 Atorvastatin Calcium [Lipitor 10 mg Tablet] 10 mg PO QHS 07/02/17 Carvedilol [Coreg 3.125 mg Tablet] 3.125 mg PO Q12 07/02/17 Cholecalciferol (Vitamin D3) [Vitamin D3 5000 unit Capsule] 5,000 unit PO DAILY 07/02/17 Fluticasone Propionate [Flonase Nasal Harbinger 50 Mcg/Harbinger 16 gm] 1 spray NASL Q12 07/02/17 Furosemide [Lasix 40 mg Tablet] 40 mg PO BID 07/02/17 Metformin HCl [Glucophage] 500 mg PO DAILY 07/02/17 Pantoprazole Sodium [Protonix] 40 mg PO DAILY 07/02/17 Lisinopril [Prinivil 10 mg Tablet] 10 mg PO DAILY #30 tablet 07/04/17 Montelukast Sodium [Singulair 10 mg Tablet] 10 mg PO DAILY 03/12/18 Aspirin [Ecotrin 81 mg EC Tablet] 81 mg PO DAILY 06/11/19 Cetirizine HCl [Zyrtec 10 mg Tablet] 10 mg PO DAILY 06/11/19 Docusate Sodium [Colace 100 mg Capsule] 100 mg PO BIDP PRN 06/11/19 Fluticasone/Umeclidin/Vilanter [Trelegy 100-62.5-25 Mcg Ellipta 14 Dose/Dpi] 1 puff IH Q12 06/11/19 Ipratropium/Albuterol Sulfate [Duoneb 3 ml Ampul] 3 ml NEB RTQ6HP PRN 06/11/19 Methimazole [Tapazole 5 mg Tablet] 2.5 mg PO DAILY 06/11/19 Acetaminophen [Tylenol 325 mg Tablet] 650 mg PO Q4HP PRN tablet 06/14/19 Doxycycline Hyclate [Vibramycin 100 mg Tablet] 100 mg PO Q12 #14 tablet 06/14/19 Fluticasone Propionate [Flonase Nasal Harbinger 50 Mcg/Harbinger 16 gm] 2 spray NASL Q12 #1 spray.pump 06/14/19 Guaifenesin [Mucinex Sr 600 mg Tablet.sa] 600 mg PO Q12 #14 tablet.sa 06/14/19 Guaifenesin [Robitussin Syrup 200 mg/10 ml Ud Cup] 200 mg PO Q4HP PRN udc 06/14/19 Ipratropium/Albuterol Sulfate [Duoneb 3 ml Ampul] 3 ml NEB RTQ6HP PRN #120 vial.neb 06/14/19 Nebulizer [Compact Compressor Nebulizer] 1 each MC ASDIR PRN #1 each 06/14/19 Prednisone [Deltasone 20 mg Tablet] 60 mg PO DAILY #15 tablet 06/14/19 History of Present Illiness History of Present Illness: Per H&P by Dr. Soler: JIMMY SCHRADER is a 63 year old female with a past medical history of diabetes, morbid obesity with a BMI of 40.5, oxygen dependent COPD, diastolic heart failure and obstructive sleep apnea. She presents with 2 weeks of shortness of breath and a productive cough prompting evaluation in the emergency department where she is found to have bilateral wheeze, retractions, tachypnea pulse oximetry of 86% on 4 L and acute renal failure. Failing several treatments with albuterol, Atrovent, magnesium and steroids she is referred to the hospitalist for admission. She denies fever or recent change in medication regiment. Hospital Course Hospital Course: (1) Acute and chronic respiratory failure with hypoxia Patient was admitted to the medical floor on continuous cardiac telemetry. She was empirically placed on IV azithromycin and doxycycline for treatment of bronchitis. Received IV azithromycin x 2 days and is discharged with Rx for p.o. doxycycline to complete full course of therapy at home. She was supported with supplemental oxygen, BiPAP, scheduled and as needed nebulizer treatments, chlorphentermine, Solu-Medrol, Singulair, and Robitussin as needed. Pulmonary toilet was encouraged with incentive spirometer, flutter valve, and ambulation. She is now maintaining oxygen saturations, while at rest, on her baseline oxygen requirement of 4 L/min. With ambulation, she does desaturate to the mid 80s on 4 L but is able to maintain oxygen saturations with 5 L/min. Discharge planning was contacted to make arrangements with her home oxygen company for increased oxygen needs. Patient is instructed on the importance of following up with her established laundry route driver as scheduled next week. (2) COPD exacerbation Management as above. (3) Acute renal failure Nearing baseline creatinine Appears euvolemic, urinalysis unremarkable Encouraged p.o. fluid intake. Recommend repeat chemistry at follow-up appointment. (4) LAUREL treated with BiPAP Patient utilizes BiPAP at home for management of LAUREL (5) Type 2 diabetes mellitus He patient's metformin was held while admitted. She is placed on a consistent carb diet with Humalog for sliding scale coverage. Lifestyle modification, dietary discretion, and medication compliance are advised. To resume home medication regimen at discharge. (6) Morbid obesity with BMI of 40.0-44.9, adult BMI 40.5. Lifestyle modification dietary discretion advised. Physical Exam Vital Signs: Temp Pulse Resp BP Pulse Ox 97.3 F 77 23 H 120/59 L 92 02/17/20 14:25 06/14/19 14:25 06/14/19 14:25 06/14/19 14:25 06/14/19 14:25 Intake & Output 06/13/19 06/14/19 06/15/19 06:59 06:59 06:59 Intake Total 2450 5250 Output Total 1800 7700 Balance 650 -2450 Weight 113.5 kg 114.2 kg General appearance: PRESENT: no acute distress, cooperative, morbidly obese, well-developed, well-nourished Head exam: PRESENT: atraumatic, normocephalic Eye exam: PRESENT: conjunctiva pink, EOMI, PERRLA. ABSENT: scleral icterus Mouth exam: PRESENT: moist, tongue midline Respiratory exam: PRESENT: clear to auscultation alysia, prolonged expiratory phas, symmetrical, unlabored, other - Supplemental oxygen via nasal cannula at 4 to 5 L/min. ABSENT: rales, rhonchi, wheezes Cardiovascular exam: PRESENT: RRR, +S1, +S2. ABSENT: diastolic murmur, rubs, systolic murmur Pulses: PRESENT: normal dorsalis pedis pul Vascular exam: PRESENT: normal capillary refill Extremities exam: PRESENT: full ROM. ABSENT: calf tenderness, clubbing, pedal edema Musculoskeletal exam: PRESENT: ambulatory Neurological exam: PRESENT: alert, awake, oriented to person, oriented to place, oriented to time, oriented to situation, CN II-XII grossly intact. ABSENT: motor sensory deficit Psychiatric exam: PRESENT: appropriate affect, normal mood. ABSENT: homicidal ideation, suicidal ideation Skin exam: PRESENT: dry, intact, warm. ABSENT: cyanosis, rash Results Laboratory Results: WBC 12.3 10^3/uL (4.0-10.5) H D 06/13/19 04:33 RBC 4.26 10^6/uL (3.72-5.28) 06/13/19 04:33 Hgb 12.0 g/dL (12.0-15.5) 06/13/19 04:33 Hct 37.8 % (36.0-47.0) 06/13/19 04:33 MCV 89 fl (80-97) 06/13/19 04:33 MCH 28.2 pg (27.0-33.4) 06/13/19 04:33 MCHC 31.8 g/dL (32.0-36.0) L 06/13/19 04:33 RDW 16.3 % (11.5-14.0) H 06/13/19 04:33 Plt Count 246 10^3/uL (150-450) 06/13/19 04:33 Lymph % (Auto) Not Reportable 06/13/19 04:33 [place] % (Auto) Not Reportable 06/13/19 04:33 Eos % (Auto) Not Reportable 06/13/19 04:33 Baso % (Auto) Not Reportable 06/13/19 04:33 Absolute Neuts (auto) Not Reportable 06/13/19 04:33 Absolute Lymphs (auto) Not Reportable 06/13/19 04:33 Absolute Monos (auto) Not Reportable 06/13/19 04:33 Absolute Eos (auto) Not Reportable 06/13/19 04:33 Absolute Basos (auto) Not Reportable 06/13/19 04:33 Total Counted 100 06/13/19 04:33 Seg Neutrophils % Not Reportable 06/13/19 04:33 Seg Neuts % (Manual) 86 % (42-78) H 06/13/19 04:33 Band Neutrophils % 5 % (3-5) 06/13/19 04:33 Lymphocytes % (Manual) 8 % (13-45) L 06/13/19 04:33 Monocytes % (Manual) 1 % (3-13) L 06/13/19 04:33 Eosinophils % (Manual) 0 % (0-6) 06/13/19 04:33 Basophils % (Manual) 0 % (0-2) 06/13/19 04:33 Abs Neuts (Manual) 11.2 10^3/uL (1.7-8.2) H 06/13/19 04:33 Abs Lymphs (Manual) 1.0 10^3/uL (0.5-4.7) 06/13/19 04:33 Abs Monocytes (Manual) 0.1 10^3/uL (0.1-1.4) 06/13/19 04:33 Absolute Eos (Manual) 0.0 10^3/uL (0.0-0.6) 06/13/19 04:33 Abs Basophils (Manual) 0.0 10^3/uL (0.0-0.2) 06/13/19 04:33 Platelet Comment ADEQUATE 06/13/19 04:33 Polychromasia 1+ 06/13/19 04:33 Anisocytosis 1+ 06/13/19 04:33 VBG pH 7.37 (7.30-7.42) 06/11/19 16:41 VBG pCO2 50.4 mmHg (35-63) 06/11/19 16:41 VBG HCO3 28.7 mmol/L (20-32) 06/11/19 16:41 VBG Base Excess 2.6 mmol/L 06/11/19 16:41 Sodium 138.5 mmol/L (137-145) 06/14/19 04:32 Potassium 4.6 mmol/L (3.6-5.0) 06/14/19 04:32 Chloride 102 mmol/L (98-107) 06/14/19 04:32 Carbon Dioxide 28 mmol/L (22-30) 06/14/19 04:32 Anion Gap 9 (5-19) 06/14/19 04:32 BUN 39 mg/dL (7-20) H 06/14/19 04:32 Creatinine 1.32 mg/dL (0.52-1.25) H 06/14/19 04:32 Est GFR ( Amer) 49 (>60) L 06/14/19 04:32 Est GFR (MDRD) Non-Af 41 (>60) L 06/14/19 04:32 Glucose 140 mg/dL (75-110) H 06/14/19 04:32 POC Glucose 120 mg/dL (70-110) H 06/14/19 12:44 Calcium 7.8 mg/dL (8.4-10.2) L 06/14/19 04:32 Total Bilirubin 1.0 mg/dL (0.2-1.3) 06/11/19 14:16 Direct Bilirubin 0.2 mg/dL (0.0-0.4) 06/11/19 14:16 Neonat Total Bilirubin Not Reportable 06/11/19 14:16 Neonat Direct Bilirubin Not Reportable 06/11/19 14:16 Neonat Indirect Bili Not Reportable 06/11/19 14:16 AST 29 U/L (14-36) 06/11/19 14:16 ALT 28 U/L (<35) 06/11/19 14:16 Alkaline Phosphatase 104 U/L (38-126) 06/11/19 14:16 Troponin I 0.012 ng/mL 06/11/19 14:16 NT-Pro-B Natriuret Pep 567 pg/mL (<125) H 06/11/19 14:16 Total Protein 7.5 g/dL (6.3-8.2) 06/11/19 14:16 Albumin 4.3 g/dL (3.5-5.0) 06/11/19 14:16 Urine Color YELLOW 06/11/19 14:16 Urine Appearance CLEAR 06/11/19 14:16 Urine pH 6.0 (5.0-9.0) 06/11/19 14:16 Ur Specific [place] 1.008 06/11/19 14:16 Urine Protein NEGATIVE mg/dL (NEGATIVE) 06/11/19 14:16 Urine Glucose (UA) NEGATIVE mg/dL (NEGATIVE) 06/11/19 14:16 Urine Ketones NEGATIVE mg/dL (NEGATIVE) 06/11/19 14:16 Urine Blood NEGATIVE (NEGATIVE) 06/11/19 14:16 Urine Nitrite (Reflex) NEGATIVE (NEGATIVE) 06/11/19 14:16 Urine Bilirubin NEGATIVE (NEGATIVE) 06/11/19 14:16 Urine Urobilinogen NEGATIVE mg/dL (<2.0) 06/11/19 14:16 Leukocyte Esterase Rfl TRACE (NEGATIVE) H 06/11/19 14:16 Urine RBC (Auto) 1 /HPF 06/11/19 14:16 Urine Bacteria (Auto) 3+ /HPF 06/11/19 14:16 Urine WBC (Reflex) 6 /HPF 06/11/19 14:16 Squamous Epi Cells Auto 2 /HPF 06/11/19 14:16 Urine Ascorbic Acid NEGATIVE (NEGATIVE) 06/11/19 14:16 Influenza A (Rapid) NEGATIVE (NEGATIVE) 06/11/19 20:34 Influenza B (Rapid) NEGATIVE (NEGATIVE) 06/11/19 20:34 06/11/19 14:16 Troponin I 0.012 NT-Pro-B Natriuret Pep 567 H Impressions: Chest X-Ray 06/11/19 13:48 IMPRESSION: Low inspiratory lung volumes and mild cardiomegaly without a superimposed acute cardiopulmonary process. Plan Plan of Treatment: Follow up with primary care provider within 1 week. Follow up with laundry route driver, Dr. Duque, as scheduled on the . Take medications as prescribed. Continue to use the flutter valve and incentive spirometer. Avoid known respiratory triggers (dust, pollen, pet dander, smoke). Return to the emergency department as needed for concerning symptoms. Time Spent: Greater than 30 Minutes Stroke Is this a Stroke Patient?: No Acute Heart Failure - Is this a Heart Failure Patient?: No
[2019-06-15] MEDS ORDERED: AZITHROMYCIN 250 MG TABLET PO SCH (10:00)
[2019-06-15] MEDS ORDERED: ASPIRIN 81 MG TABLET, ENT COATED PO SCH (10:00)
== END 2019-06-14 15:30 | disposition home or self-care (01) | DRG 190 ==
LOC: ER 13:34 → EH 06-12 00:50 → 5 06-12 02:45
PROVIDERS: ADMIT Internal Medicine; ATTEND Internal Medicine
PROC: 5A09457 Assistance with Respiratory Ventilation, 24-96 Consecutive Hours, Continuous Positive Airway Pressure (ICD-10-PCS; principal; 2019-06-12)
DX: J44.1 Chronic obstructive pulmonary disease with (acute) exacerbation (principal); J96.21 Acute and chronic respiratory failure with hypoxia; N17.9 Acute kidney failure, unspecified; Z68.41 Body mass index [BMI] 40.0-44.9, adult; I50.32 Chronic diastolic (congestive) heart failure; I11.0 Hypertensive heart disease with heart failure; E78.5 Hyperlipidemia, unspecified; G47.33 Obstructive sleep apnea (adult) (pediatric); E05.90 Thyrotoxicosis, unspecified without thyrotoxic crisis or storm; K21.9 Gastro-esophageal reflux disease without esophagitis; E11.9 Type 2 diabetes mellitus without complications; E66.01 Morbid (severe) obesity due to excess calories; J44.0 Chronic obstructive pulmonary disease with (acute) lower respiratory infection; B96.20 Unspecified Escherichia coli [E. coli] as the cause of diseases classified elsewhere; J20.9 Acute bronchitis, unspecified; E78.00 Pure hypercholesterolemia, unspecified; Z99.81 Dependence on supplemental oxygen; Z79.899 Other long term (current) drug therapy; Z79.84 Long term (current) use of oral hypoglycemic drugs; Z79.82 Long term (current) use of aspirin; Z87.891 Personal history of nicotine dependence
CPT/HCPCS: 36415; 71045; 80048; 80053; 81001; 82803; 82962; 83880; 84484; 85025; 87086; 87088; 87186; 87804; 93005; 93010; 94640; 94660; 94667; 94668; 94799; 96365; 96366; 96368; 96375; 99285; J0456; J0696; J1644; J2920; J2930; J3475; J3490; J7030; J7060; J7512; J7620

== ENCOUNTER → 2019-07-20 | Outpatient (CLI) | payer OTHER ==
[2019-07-20 10:43] LABS: ABSOLUTE EOSINOPHILS # (AUTO) 0.1 10^3/uL (0.0-0.6); ABSOLUTE LYMPHOCYTES (AUTO) 1.4 10^3/uL (0.5-4.7); ABSOLUTE MONOCYTES (AUTO) 0.4 10^3/uL (0.1-1.4); ABSOLUTE NEUT (AUTO) 5.5 10^3/uL (1.7-8.2); BASOPHILS % (AUTO) 0.6 % (0-2); EOSINOPHILS % (AUTO) 1.4 % (0-6); HEMATOCRIT 37.5 % (36.0-47.0); HEMOGLOBIN 12.3 g/dL (12.0-15.5); MEAN CORPUSCULAR HEMOGLOBIN 28.9 pg (27.0-33.4); MEAN CORPUSCULAR HGB CONC 32.7 g/dL (32.0-36.0); MEAN CORPUSCULAR VOLUME 88 fl (80-97); MONOCYTES % (AUTO) 5.7 % (3-13); PLATELET COUNT 253 10^3/uL (150-450); RED BLOOD COUNT 4.25 10^6/uL (3.72-5.28); SEGMENTED NEUTROPHILS % (AUTO) 73.3 % (42-78); TOTAL CELLS COUNTED % (AUTO) 100 %; WHITE BLOOD COUNT 7.6 10^3/uL (4.0-10.5)
[2019-07-20 11:15] LABS: ALBUMIN 4.2 g/dL (3.5-5.0); ALKALINE PHOSPHATASE 85 U/L (38-126); ANION GAP 8 (5-19); ASPARTATE AMINO TRANSFERASE 26 U/L (14-36); BILIRUBIN,DIRECT 0.2 mg/dL (0.0-0.4); BILIRUBIN,TOTAL 0.8 mg/dL (0.2-1.3); BLOOD UREA NITROGEN 29 mg/dL (7-20); CALCIUM 9.7 mg/dL (8.4-10.2); CARBON DIOXIDE 31 mmol/L (22-30); CHLORIDE 100 mmol/L (98-107); CHOLESTEROL 160.37 mg/dL (0-200); GLUCOSE 114 mg/dL (75-110); POTASSIUM 4.9 mmol/L (3.6-5.0); TOTAL PROTEIN 7.2 g/dL (6.3-8.2); TRIGLYCERIDES 157 mg/dL (<150)
[2019-07-20 11:26] LABS: DIRECT LDL 85 mg/dL (<100); FREE T3 4.54 pg/mL (2.77-5.27); FREE T4 (FREE THYROXINE) 0.89 ng/dL (0.78-2.19); VLDL CHOLESTEROL 31.4 mg/dL (10-31)
[2019-07-20 11:32] LABS: ALBUMIN 4.2 g/dL (3.5-5.0); ALKALINE PHOSPHATASE 85 U/L (38-126); ASPARTATE AMINO TRANSFERASE 26 U/L (14-36); BILIRUBIN,TOTAL 0.8 mg/dL (0.2-1.3)
[2019-07-20 11:33] LABS: BILIRUBIN,DIRECT 0.2 mg/dL (0.0-0.4); TOTAL PROTEIN 7.2 g/dL (6.3-8.2)
[2019-07-20 11:40] LABS: THYROID STIMULATING HORMONE 1.31 uIU/mL (0.47-4.68)
== END ==
LOC: OD 09:48
PROVIDERS: ATTEND Physician Assistant
DX: E78.5 Hyperlipidemia, unspecified (principal); I10 Essential (primary) hypertension
CPT/HCPCS: 36415; 80053; 80061; 84439; 84443; 84481; 85025; 87070